=== PATIENT | male | born 1945 | race Caucasian/White ===

== ENCOUNTER 2022-01-31 13:30 | Outpatient (RCR) | payer MEDICARE, SELFPAY ==
--- NOTE | 2022-01-13 17:31 | PTOPEVAL1 ---
Assessment and note entered by Andres Reagan, PT Evaluation Information Assessment Status Evaluation Diagnosis Sciatica of the R and L LEs Onset 3 weeks ago Subjective Information Patient reports he has had sciatica before, but after a day or two with the MD giving him an anti inflammatory the symptoms would resolve on their own. He has been dealing with this for three weeks, requiring a large base quad cane as his legs have given out on him and he can barely walk. The patient is also having trouble sleeping on the L side and the sciatica is going to the arch on the L side and to the ankle on the R side. Reported Pain Level Pain Score 3: Self Report Assessment PT Clinical Summary Venkatesh is a 76 year old male coming into the clinic today with complaints of back pain with LIDA LE sciatica with the LLE worse. He is having trouble walking, sleeping, and being in prolonged position for extended periods. He has weakness in LIDA LE, tightness in hamstrings, calfs, pain, and trouble walking. Physical therapy should be able to help the patient increase strength in the legs and stretch out his lower extremities which should centralize his pain and improve his gait. Plan of Care Interventions Electrical Stimulation,Gait Training,Hot Pack/Cold Pack,Manual Therapy,Mechanical Traction,Neuro Re- education,Patient/Caregiver Education,Therapeutic Activities,Therapeutic Exercise,Ultrasound PT Services Indicated Yes Treatment Frequency and 2x/wk for 4 weeks Duration These treatments will address the objective and functional deficits as defined above. The patient will be advanced safely and appropriately in order for the patient to progress towards his/her prior level of function. Additional exercises will be introduced and as well as a comprehensive home exercise program upon discharge, if needed, ?to ensure carryover of functional gains achieved in the clinic. This treatment plan has been reviewed and agreement upon by the patient.
--- NOTE | 2022-02-07 10:12 | PCPTNOTE ---
Patient called & cancelled scheduled appointment this date due to running latre and unable to make the scheduled appointment.
--- NOTE | 2022-02-09 09:49 | PCPTNOTE ---
Patient called & cancelled scheduled appointment this date due to not feeling well
--- NOTE | 2022-04-05 15:59 | PCPTNOTE ---
Admitting Provider: Attending Provider: Christiano Enamorado MD Patient:Venkatesh Loja Date of :1945 Patient has not returned for any further treatments since 01/31/2022, therefore (he/she) will be discharged at this time. Patient?s initial visit was on 01/13/2022 15:00 and (he/she) had a total of ____3____ visits. The goals have been not met. Thank you for referring this patient to [facility]. Please review, sign, date and return this discharge summary WAYLON. I have been updated about the patient's current status and I agree with discharge from the above service at this time. Referring Physician Date
== END 2022-04-04 13:40 | disposition home or self-care (01) ==
LOC: ANHPT 13:30
PROVIDERS: PCP Nurse Practitioner Family; Visit Provider Family Medicine
DX: M54.42 Lumbago with sciatica, left side (principal); M54.41 Lumbago with sciatica, right side
CPT/HCPCS: 97014; 97110; 97161; G0283

== ENCOUNTER → 2022-02-23 11:27 | Outpatient (CLI) | payer MEDICARE, SELFPAY ==
--- NOTE | ~2022-02-23 | XR_ITS ---
Lumbosacral Spine: AP and lateral views Clinical History: Pain Findings: Mild grade 1 retrolisthesis is present of L1 over L2, of L2 over L3, and of L3 over L4. Ant erolisthesis of L4 over L5 is probably grade 2, measuring approximately 12 mm. There is advanced dege nerative disc narrowing at L2-L3. There is moderate degenerative disc narrowing at the remaining lumb ar intervertebral disc spaces. There are moderate facet joint degenerative changes at L4-L5 and L5-S1 : Mild facet joint degenerative changes at the upper lumbar spine. The sacroiliac joints are normally outlined. Impression: Probable grade 2 anterolisthesis of L4 on L5, measuring 12 mm. Mild grade 1 retrolisthesis of L1 over L2, of L2 over L3, and L3 over L4. Additional degenerative disc and facet joint changes, as detailed above. Reviewed, dictated and finalized at location [] MOBILE RENTAL CLERK Impression: Probable grade 2 anterolisthesis of L4 on L5, measuring 12 mm. Mild grade 1 retrolisthesis of L1 over L2, of L2 over L3, and L3 over L4. Additional degenerative disc and facet joint changes, as detailed above.
== END ==
PROVIDERS: PCP Family Medicine; Visit Provider Nurse Practitioner Family
DX: M54.41 Lumbago with sciatica, right side (principal); M54.42 Lumbago with sciatica, left side
CPT/HCPCS: 72100

== ENCOUNTER 2022-03-02 13:14 | Outpatient (CLI) | payer MEDICARE, SELFPAY ==
--- NOTE | ~2022-03-02 | MR_ITS ---
MRI of the lumbar spine Clinical History: Back pain, sciatica Technique: Axial T2-weighted images, and sagittal T1-weighted, T2-weighted, and T2 fat-sat images wer e acquired. Findings: No acute fracture seen. 7 mm retrolisthesis of L2 over L3 noted. 3 mm retrolisthesis of L3 over L4 noted. 10 mm anterolisthesis of L4 over L5 noted. 6 mm retrolisthesis of L5 over S1 noted. Th ere are reactive marrow signal changes throughout most the lumbar spine due to underlying degenerativ e disc disease. At L1-L2, there is severe degenerative disc narrowing, with disc bulge eccentric to left side. Facet joint degenerative changes are present, with left lateral recess stenosis. There is moderate left lori ral foraminal narrowing. Right neural foramen preserved. At L2-L3, there is severe degenerative disc narrowing. There is mild facet arthropathy with mild disc bulge, which contribute to mild to moderate thecal sac compression. There is moderate to severe bila teral neural foraminal narrowing. At L3-L4, disc bulge and facet arthropathy contribute to severe thecal sac compression. There is donna re bilateral neural foraminal narrowing, right worse than left. At L4-L5, disc bulge and facet arthropathy are present, contributing to focal severe thecal sac compr ession. There is severe bilateral neural foraminal narrowing. At L5-S1, disc bulge and facet arthropathy are present. There is no spinal canal stenosis. There is s evere bilateral neural foraminal narrowing, left worse than right. Paravertebral soft tissues are unremarkable. Impression: Severe degenerative spondylosis, as detailed above. Multiple subluxations are present, as detailed ab ove. There is severe thecal sac compression at L3-L4 and L4-L5, with moderate thecal sac compression L2-L3. There is multilevel severe neural foraminal narrowing, as detailed above. Reviewed, dictated and finalized at location M. NCIAL PLANNING ASSISTANT Impression: Severe degenerative spondylosis, as detailed above. Multiple subluxations are p resent, as detailed above. There is severe thecal sac compression at L3-L4 and L4-L5, with moderate thecal sac compression L2-L3. There is multilevel severe n eural foraminal narrowing, as detailed above.
== END 2022-03-02 13:15 ==
PROVIDERS: PCP Family Medicine; Visit Provider Nurse Practitioner Family
DX: M54.41 Lumbago with sciatica, right side (principal); M54.42 Lumbago with sciatica, left side; M51.36 Other intervertebral disc degeneration, lumbar region; M47.896 Other spondylosis, lumbar region
CPT/HCPCS: 72148

== ENCOUNTER → 2022-10-31 13:58 | Outpatient (CLI) | payer MEDICARE, SELFPAY ==
--- NOTE | ~2022-10-31 | XR_ITS ---
EXAMINATION: XR ribs LT 2V DATE: 10/31/2022 14:20 INDICATION: Pleurodynia TECHNIQUE: 4 views of the left ribs were obtained. COMPARISON: None FINDINGS: Minimally displaced fractures of the anterior left sixth and seventh ribs. Small calcified nodules in the lateral left midlung zone and calcified left hilar lymph nodes consistent with old granulomatous disease. No other airspace opacities, pulmonary edema, pleural effusion or pneumothorax. Heart size is normal. Median sternotomy wires and mediastinal surgical clips are seen, likely from prior coronar y artery bypass grafting. IMPRESSION: 1. Minimally displaced anterior left sixth and seventh rib fractures. No pneumothorax or other acute cardiopulmonary disease. Reviewed, dictated and finalized at location A. IMPRESSION: 1. Minimally displaced anterior left sixth and seventh rib fractures. No pneumo thorax or other acute cardiopulmonary disease.
== END ==
PROVIDERS: PCP Nurse Practitioner Family; Visit Provider Nurse Practitioner Family
DX: R07.81 Pleurodynia (principal); S22.42XA Multiple fractures of ribs, left side, initial encounter for closed fracture; X58.XXXA Exposure to other specified factors, initial encounter
CPT/HCPCS: 71100

== ENCOUNTER 2022-10-31 14:54 | Outpatient (CLI) | payer MEDICARE, SELFPAY ==
--- NOTE | ~2022-10-31 | XR_ITS ---
EXAMINATION: XR lumbar spine min 4V DATE: 10/31/2022 15:16 INDICATION: Low back pain TECHNIQUE: Anteroposterior and lateral views and neutral, flexion and extension of the lumbar spine w ere obtained. COMPARISON: Lumbar spine MR dated 03/02/2022 and radiographs dated 02/23/2022 FINDINGS: Mild upper lumbar dextrocurvature and mild mid to lower lumbar levocurvature. 6 mm retrolisthesis L2 on L3 as well as L3 on L4, 12 mm anterolisthesis L4 on L5 and 10 mm retrolisthesis L5 on S1, all with out significant change with flexion or extension. Vertebral body heights are normal. Severe disc heig ht loss at L2-L3. Moderate disc height loss at L1-L2, L5-S1 and with right-sided predominance at L3-L 4 and posterior predominance at L4-L5. Moderate bilateral sacroiliac osteoarthritis. Cholecystectomy clips in right upper quadrant. IMPRESSION: 1. Severe lumbar spondylosis. Reviewed, dictated and finalized at location A.
== END 2022-10-31 14:55 | disposition home or self-care (01) ==
LOC: ANHIMG 14:57
PROVIDERS: PCP Nurse Practitioner Family; Visit Provider Neurological Surgery
DX: M54.42 Lumbago with sciatica, left side (principal); M54.41 Lumbago with sciatica, right side; M47.26 Other spondylosis with radiculopathy, lumbar region
CPT/HCPCS: 71100; 72110

== ENCOUNTER 2022-11-17 11:41 | Outpatient (CLI) | payer MEDICARE, SELFPAY ==
--- NOTE | ~2022-11-17 | XR_ITS ---
AP and lateral views of the right hip Clinical history: Pain Findings: No acute fracture or dislocation is seen. Osseous alignment is anatomic. Right hip joint is preserved. Soft tissues are unremarkable. Impression: No significant abnormality is seen. Reviewed, dictated and finalized at location M. Impression: No significant abnormality is seen.
== END 2022-11-17 11:42 ==
PROVIDERS: PCP Neurological Surgery; Visit Provider Nurse Practitioner Family
DX: M25.551 Pain in right hip (principal)
CPT/HCPCS: 73502

== ENCOUNTER 2023-02-10 07:34 | Outpatient (CLI) | payer MEDICARE, SELFPAY ==
--- NOTE | ~2023-02-10 | MR_ITS ---
EXAMINATION: MR thoracic spine wo con DATE: 02/10/2023 08:39 INDICATION: Lumbar radiculopathy. TECHNIQUE: Magnetic resonance imaging (MRI) of the thoracic spine was performed without intravenous c ontrast. COMPARISON: Lumbar spine MRI 03/02/2022 FINDINGS: There is 5 degrees levocurvature of cervicothoracic spine. There is 3 degrees dextrocurvatu re of thoracic spine. There is 2 mm anterolisthesis of T2 on T3. There is mild chronic anterior wedgi ng of T11 and T12 vertebral bodies. There is severely decreased disc height at T2-T3, mildly decrease d disc height at T3-T4, moderately decreased disc height at T7-T8, mildly decreased disc height at T1 0-T11, and severely decreased disc height at T11-T12. There is multilevel facet joint osteoarthritis, severe at several levels. At T1-T2, there is a central protrusion with mild central canal stenosis. At T2-T3, there is a central extrusion with mild central canal stenosis. At T3-T4, there is a central extrusion with mild central canal stenosis and ventral indentation of the spinal cord. At T5-T6, the disc is bulging with mild central canal stenosis. At T6-T7, the disc is bulging with mild central ca nal stenosis. At T7-T8, there is a central extrusion with mild central canal stenosis and ventral ind entation of spinal cord. At T8-T9, there is a central protrusion with mild central canal stenosis. At T10-T11, the disc is bulging with mild central canal stenosis. At T11-T12, the disc is bulging with mild central canal stenosis. There is multilevel mild neural foraminal stenosis bilaterally. On the r ight, there is moderate neural foraminal stenosis at T2-T3, T8-T9, and T9-T10. On the left, there is moderate neural foraminal stenosis at T7-T8. The spinal cord signal intensity is normal. The conus me dullaris is at T12-L1. IMPRESSION: 1. Severe thoracic spondylosis. Reviewed, dictated and finalized at location A. RDS MANAGEMENT ASSOCIATE
== END 2023-02-10 07:35 | disposition home or self-care (01) ==
PROVIDERS: PCP Family Medicine; Visit Provider Nurse Practitioner Family
DX: M47.24 Other spondylosis with radiculopathy, thoracic region (principal)
CPT/HCPCS: 72146

== ENCOUNTER 2024-06-18 13:05 | Emergency (ER) | payer MEDICARE, SELFPAY ==
--- NOTE | 2024-06-18 13:08 | ED_ITS ---
HPI - Ear Problem General Chief complaint: Ear Stated complaint: Bilateral Ear Clogged Time Seen by Provider: 06/18/24 13:08 Source: patient Mode of arrival: ambulatory Limitations: no limitations History of Present Illness HPI Narrative: Patient is a 88-year-old male who presents with bilateral ears being clogged. Patient states he tried to clean out right ear with no relief. Patient states he can not hear out of his right ear and only has some hearing in left ear. Denies any congestion, cough, fever, chills, nausea, vomiting, diarrhea. MD Complaint: ear pain Related Data Home Medications ?Medication ?Instructions ?Recorded ?Confirmed ?Last Taken ?Type calcium 500 mg (as tablet PO 08/19/21 12/08/23 Unknown History carbonate)-vitamin D3 15 mcg (600 unit) tablet aspirin 81 mg tablet,delayed 81 mg PO DAILY 12/08/23 12/08/23 Unknown History release acetaminophen 325 mg tablet 325 mg PO QID PRN 06/07/24 Unknown History lisinopril 20 mg tablet 20 mg PO DAILY 06/07/24 Unknown History Allergies Allergy/AdvReac Type Severity Reaction Status Date / Time Penicillins Allergy Severe Swelling Verified 06/18/24 13:14 Review of Systems Review of Systems: All systems reviewed & are unremarkable except as noted in HPI and below Constitutional: Constitutional: Denies body ache(s), Denies chills, Denies fever(s), Denies headache(s) and Denies malaise Eyes: Eyes: Denies blurry vision, Denies eye discharge and Denies irritation ENT: Reports otalgia, Denies headache(s), Reports hearing loss, Denies nasal congestion, Denies nasal discharge and Denies sore throat Cardiovascular: Cardiovascular: Denies chest pain, Denies edema, Denies palpitations and Denies dyspnea on exertion Respiratory: Respiratory: Denies cough and Denies dyspnea on exertion Gastrointestinal: Gastrointestinal: Denies abdominal pain, Denies diarrhea, Denies nausea and Denies vomiting Musculoskeletal: Musculoskeletal: Denies back pain, Denies arthralgias and Denies muscle weakness Integumentary/Breasts: Skin/Breast: Denies pruritus and Denies rash Neurologic: Denies headache(s) Psychiatric: Psychiatric: Reports no additional psychiatric complaints Endocrine: Endocrine: Denies palpitations PMFSH Past Medical History Medical History Chronic thoracic spine pain MRI of the thoracic spine on 02/10/2023 reveals severe spondylosis. Lesion of skin of face Impacted cerumen, bilateral Hx of colonic polyp B12 deficiency Rib pain on left side Impacted cerumen of left ear Screening for diabetic retinopathy no diabetic retinopathy on 05/09/2022. Anterolisthesis of lumbar spine Degenerative disc disease, lumbar Retrolisthesis of vertebrae Low back pain with bilateral sciatica PSA elevation Anemia HLD (hyperlipidemia) Vitamin D deficiency Prostate cancer screening GERD (gastroesophageal reflux disease) Atrial fibrillation Gout Osteoarthritis of multiple joints Peripheral neuropathy Hypertension Diabetes type 2, controlled Encounter to establish care History of skin cancer Gallbladder disorder Diabetes CAD (coronary artery disease) Arthritis Surgical History Surgical History H/O heart bypass surgery Triple Bypass- 2014 H/O heart artery stent 2017, 2018 Hx of total knee replacement right knee- 2011 left knee-2011 Hx of cataract surgery Hx of cholecystectomy H/O knee surgery left knee-1999 H/O elbow surgery right elbow-1996 left elbow-2013 H/O hand surgery Bilateral 1997 H/O toe surgery 1987 Family History Family History Father Cancer Mother Heart disease Social History Social History Social History: Venkatesh is somewhat confident filling out medical forms. In the last 12 months he has received assistance from an organization or program with paying for medications, paying utility bills, and paying for food. Smoking status: Former smoker Alcohol intake: never Substance use: never Lack of Transportation: No Lack of Food: Never True Current Housing: I Have Housing Concerned About Future Housing: No Difficulty Paying Gas/Electric Bills: YES Difficulty Paying for Meds: No Currently Unemployed: No Education: Trade/Vocational Certificate Difficulty w/ Childcare or Family Care: No Living arrangements: alone Gender identity (if verbalized by the patient): Male Comments At time of signature, agree with nursing past medical, surgical, social and family history. There is no relevant family history pertinent to the presenting complaint? Exam Const: General: cooperative, healthy appearing, no acute distress and well nourished Nutritional Appearance: well nourished Orientation/consciousness: patient oriented x3 Limitations: no limitations HENMT: Head: normal to inspection, normocephalic and atraumatic Ears: hearing grossly normal bilaterally, EAC's normal, no periauricular adenopathy and TM abnormal obstructed by cerumen bilateral Face/Nose/Sinus: Normal external nose present, Normal nares present, Normal nasal mucous membranes and turbinates present, No nasal discharge present, normal facial exam and sinuses nontender Face and sinus: normal facial exam and sinuses nontender Mouth: Yes Normal oral and palatal mucosa present, Yes lip normal, Yes tongue normal and Yes moist mucous membranes Throat: posterior oropharynx normal, tonsils normal and uvula midline Eyes: General: appearance normal, both eyes and all related structures Alignment and Position: alignment normal and position normal Eyelids: eyelids normal Pupils: Equal, round and reactive pupils present EOM: EOMs intact bilaterally Neck: Neck: normal visual inspection, full ROM, no lymphadenopathy and supple Chest: Chest palpation & inspection: normal inspection of the chest Resp: Effort & Inspection: normal respiratory effort and able to speak in complete sentences Auscultation: clear to auscultation bilaterally, no crackles, no rales, no rhonchi and no wheezes Cardio: Rate: regular rate Rhythm: regular rhythm Heart sounds: S1 normal heart sound present and S2 normal heart sound present Skin: General skin exam: normal color and no rashes or lesions noted Neuro: General: patient oriented x3 and moves all extremities Cranial nerves: Yes Equal, round and reactive pupils present Cognition (Neuro): normal cognition Speech: normal speech Gait exam (Neuro): Normal gait present Extrem: General: normal to inspection and full ROM Psych: Appearance: grossly normal and well kempt Mental Status: mental status grossly normal Speech and movement: Normal speech and movement present Course Course Emergency Course: Patient is aware of diagnosis, understands and agrees to treatment plan.? Anticipatory guidance given.? Patient agrees to follow-up as directed and is aware of reasons to seek care at the emergency department.? Portions of this record may have been created with voice recognition software? Level of Care: Express Care Visit Vital Signs Vital signs: Reviewed Procedures Ear Wax Removal Both Ears: Ear Wax Removal Date: 06/18/24 Ear Wax Removal Time: 13:40 Cerumenolytic Used: other (1:1 water and hydrogen peroxide mix) Results: Re-examined: cerumen removed completely TM Examination: TM(s) intact, normal appearance Ear Canal Exam: atraumatic Patient Tolerated Procedure: well and no complications Complications: no problems Technique: ear canal irrigated Additional Comments: Procedure explained patient, verbal consent obtained. Large amounts of wax removed. Patient reports relief of symptoms and ability to hear is back to baseline. Wears hearing aids Medical Decision Making MDM Narrative Medical decision making narrative: Six possible remover of cerumen. Patient still reports some difficulty hearing but does state that is his baseline as he wears hearing aids and does not have them with him. No signs of infection present Pt well hydrated appearing, in no respiratory distress, hemodynamically stable. Recommend supportive care. The patient is stable at time of discharge the clinical impression was discussed and the patient was given the opportunity to ask questions, which were addressed as completely as possible given the information available at present. Anticipatory guidance and return to care precautions were discussed and the importance of primary care follow-up was stressed and encouraged. The patient voiced understanding of the plan, indications to return, and the need for follow-up. Exam findings show no acute concerns or changes Patient is appropriate for outpatient treatment and follow-up. Differential diagnosis considered: Rodrigez virus, strep pharyngitis, allergic rhinitis, upper respiratory tract infection, sinusitis, rhinosinusitis, nasopharyngitis. viral pharyngitis, otitis media, otitis externa, otitis effusion, foreign body, cerumen impaction, viral syndrome, and influenza.? Medical Records Medical records reviewed: Yes I reviewed the external patient's medical records. Discharge Plan Discharge Clinical Impression: Cerumen impaction Qualifiers: Laterality: bilateral Qualified Code(s): H61.23 - Impacted cerumen, bilateral Patient Disposition: Home Condition: Stable Instructions: Carbamide Peroxide (Into the ear) Additional Instructions: Use Flonase daily. Pick between Zyrtec and Claritin [id number] -Ear drops as needed -When administer drug into the affected ear; make sure to lay down with the affected ear facing upward, message the ear canal to help the drops reach the medial end of the canal, then remain in that position for at least 5 minutes. -Avoid using cotton tipped applicator for ears cleaning -Avoid exposing swimming or exposing the affected ear to water during the treatment period Take or alternate tylenol or ibuprofen every 4 - 6 hours if needed for pain. Follow up with primary care provider if condition is not improving in 7 days or sooner if there is new concern. Patient Language: Mexican Prescriptions: New fluticasone propionate [Flonase Allergy Relief] 50 mcg/actuation spray,suspension 1 spray intranasal DAILY Qty: 16 0RF Rx Instructions: administer into each nostril No Action calcium carbonate-vitamin D3 500 mg-15 mcg (600 unit) tablet PO aspirin 81 mg tablet,delayed release (DR/EC) 81 mg PO DAILY acetaminophen 325 mg tablet 325 mg PO QID PRN (DME) Dexcom G7 Sensor Device See Rx Instructions .Route Qty: 9 3RF Rx Instructions: Change every 10 days nitroglycerin 0.4 mg tablet, sublingual 0.4 mg sublingual Q5M PRN (Reason: chest pain) Qty: 30 1RF Rx Instructions: do not exceed 3 doses per episode lisinopril 20 mg tablet 20 mg PO DAILY metoprolol tartrate 25 mg tablet 25 mg PO BID Qty: 180 3RF rosuvastatin 20 mg tablet 20 mg PO DAILY Qty: 90 3RF diltiazem HCl 30 mg tablet 30 mg PO BID Qty: 180 3RF amiodarone 200 mg tablet 200 mg PO 3XW Qty: 36 3RF Eliquis 5 mg tablet 5 mg PO BID Qty: 180 3RF fenofibric acid (choline) 135 mg capsule,delayed release(DR/EC) 135 mg PO DAILY Qty: 90 3RF pantoprazole 40 mg tablet,delayed release (DR/EC) 40 mg PO QAM Qty: 90 3RF (DME) Dexcom G7 Fire Information Officer Misc See Rx Instructions .Route Qty: 1 0RF Rx Instructions: As directed isosorbide mononitrate 30 mg tablet extended release 24 hr 30 mg PO BID Qty: 180 3RF glipizide 5 mg tablet 5 mg PO BID Qty: 180 3RF allopurinol 300 mg tablet See Rx Instructions .ROUTE .COMPLEX Qty: 100 2RF Dose Instruction: TAKE 1 TABLET BY MOUTH DAILY Rx Instructions: TAKE 1 TABLET BY MOUTH DAILY (DME) Accu-Chek Daisy Plus test strp Strip See Rx Instructions .ROUTE .COMPLEX Qty: 100 2RF Dose Instruction: TEST ONCE DAILY Rx Instructions: TEST ONCE DAILY Follow-up/Referrals: Mikey Brumfield APRN [Primary Care Provider] - 3 Days Time of Disposition: 13:53
[2024-06-18 13:12] VITALS: BP 165/60; PULSE 63; RESP 20; TEMP 35.8; O2SAT 100
[2024-06-18] MEDS: HYDROGEN PEROXIDE 3% SOLN(*SP) 473 ML BOTTLE 120 ML IRRIGATION (13:27)
--- OUTSIDE RECORDS SUMMARY | 2024-06-18 14:27 | XMS_ITS | Clinical Summary ---
Author Organization [facility] Address [address] [place] [address] Care Team Providers Care Epic Radiant Analyst Name Role Phone Malick Mcgregor MD Unavailable Christiano Enamorado MD Primary Care Provider [phone] Allergies Active Allergy Reactions Criticality Noted Date Comments Niacin Hallucinations,Flush ing (skin) Medium 12/05/2007 Penicillins Hives,Rash Medium 06/28/2017 Reaction: HIVES, Reaction: Hives, , Pravastatin Muscle pain Medium 10/17/2008 Simvastatin Muscle pain Medium 08/31/2006 Medications glipiZIDE (GLUCOTROL) 5 mg tabletIndicati ons:type 2 diabetes mellitus Take 1 tablet (5 mg total) by mouth 2 (two) times a day before breakfast and dinner Active isosorbide mononitrate ER (IMDUR) 30 mg 24 hr tablet Take 1 tablet (30 mg total) by mouth 2 (two) times a day 09/01/[address] (PROTONIX) 40 mg EC tablet Take 1 tablet (40 mg total) by mouth daily 09/01/19 18 Active allopurinol (ZYLOPRIM) 300 mg tablet Take 1 tablet (300 mg total) by mouth daily Active calcium carbonate-vit D3-min 600 mg calcium- 200 unit tablet Take 1 tablet by mouth 2 (two) times a day. Active FENOFIBRIC ACID ORAL Take 135 mg by mouth daily. Active gabapentin (NEURONTIN) 600 mg tablet Take 1 tablet (600 mg total) by mouth every 6 (six) hours 6-12-18-24 Active metFORMIN (GLUCOPHAGE) 1,000 mg tablet Take 1 tablet (1,000 mg total) by mouth 2 (two) times a day With dinner and at bedtime. Resume metformin after 2 days on 09/03/18 09/04/19 Active Additional Information Patient taking differently:1,000 mg oralDaily with breakfast, (No instructions reported), Reported on 05/07/2024 aspirin 81 mg enteric coated tablet Take 1 tablet (81 mg total) by mouth daily Active rosuvastatin (CRESTOR) 20 mg tablet Take 1 tablet (20 mg total) by mouth daily 100 tablet 2 04/19/19 25 Active metoprolol tartrate (LOPRESSOR) 25 mg immediate release tablet Take 1 tablet (25 mg total) by mouth 2 (two) times a day 200 tablet 2 04/19/19 Active Eliquis 5 mg tablet Take 1 tablet (5 mg total) by mouth 2 (two) times a day 200 tablet 2 04/19/19 25 Active dilTIAZem (CARDIZEM) 30 mg tablet Take 1 tablet (30 mg total) by mouth 3 (three) times a day 300 tablet 2 04/19/19 Active nitroglycerin (NITROSTAT) 0.[address] 1 tablet (0.4 mg total) under the tongue every 5 (five) minutes as needed for chest pain 90 tablet 3 04/19/19 25 026 Active amiodarone (PACERONE) 200 mg tablet Take 1 tablet (200 mg total) by mouth daily Pt only takes medication on //, please send one year supply 100 tablet 05/01/19 Active clindamycin (CLEOCIN) 300 mg capsule TAKE 2 CAPSULES BY MOUTH 2 HOURS BEFORE APPT AND 2 CAPSULES BY MOUTH DAY AFTER APPT 04/25/19 Active lisinopriL (PRINIVIL,ZEST RIL) 20 mg tablet Take 1 tablet (20 mg total) by mouth daily 90 tablet 3 06/05/19 25 026 Active lisinopriL (PRINIVIL,ZEST RIL) 10 mg tablet Take 1 tablet (10 mg total) by mouth daily 100 tablet 2 04/19/19 25 025 Discontinued lisinopriL (PRINIVIL,ZEST RIL) 10 mg tablet Take 2 tablets (20 mg total) by mouth daily 06/04/19 025 Discontinued Active Problems Problem Noted Date Diagnosed Date Anxiety state 05/07/2024 Disorder of nervous system due to type 2 diabete s mellitus 05/07/2024 Mononeuritis 05/07/2024 Obesity 05/07/2024 Other psoriasis 05/07/2024 Peripheral vascular disease 05/07/2024 Pure hypertriglyceridemia 05/07/2024 Sprain of foot 05/07/2024 Primary hypertension 05/07/2024 Other thrombophilia 12/08/2022 Paroxysmal atrial fibrillation 09/29/2021 Assessment & Plan (12/08/2022 11:49 AM CDT): Stable, maintaining sinus rhythm on low-dose amiodarone, and he remains on Eliquis. Continue same therapy. Assessment & Plan (11/30/2021 11:51 AM CDT): Stable, maintaining sinus rhythm on low-dose amiodarone, and he remains on Eliquis. Continue same therapy. Nonrheumatic aortic valve stenosis 09/29/2021 Assessment & Plan (12/08/2022 11:49 AM CDT): Stable, minimal aortic stenosis only, asymptomatic. Continue same therapy. Assessment & Plan (11/30/2021 11:50 AM CDT): Stable, minimal aortic stenosis, asymptomatic. Continue same therapy. Hypercholesteremia 09/29/2021 Assessment & Plan (12/08/2022 11:49 AM CDT): Very well controlled. Continue high-intensity statin therapy. Assessment & Plan (11/30/2021 11:53 AM CDT): Lipids are well controlled. Continue high-intensity statin therapy. 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 I made no change in his excellent medical regimen today. I asked him to follow up with me annually, or sooner if needed. I again advised him to diet and exercise regularly. Assessment & Plan (11/30/2021 11:55 AM CDT): Stable, without recent angina. I made no change in his excellent medical regimen today, except to stop Plavix now far out from his PCI, and I stopped digoxin as well. He remains on low-dose aspirin plus Eliquis. I asked him to follow up with me annually, or sooner if needed. I again advised him to diet and exercise regularly. Diabetes mellitus type 2 in obese 04/10/2018 Essential hypertension 04/10/2018 Assessment & Plan (12/08/2022 11:49 AM CDT): Well controlled. Continue same therapy. Continue diet and exercise. Assessment & Plan (11/30/2021 11:52 AM CDT): Blood pressure is well controlled. Continue same therapy. Continue diet and exercise. S/P CABG (coronary artery bypass graft) 09/20/19 Overview (09/19/2017): Added automatically from request for surgery [id number] Encounter for postoperative care 11/03/2014 Overview (06/17/2016): Post surgical visit Bladder pain 05/27/2014 Resolved Problems Problem Noted Date Diagnosed Date Resolved Date Chest pain 01/06/2020 12/07/2022 Overview (01/06/2020): Added automatically from request for surgery [id number] Chest pain due to myocardial ischemia 08/31/2018 12/07/2022 Unstable angina pectoris ([facility]/HCC) 08/28/2018 09/29/2021 Overview (08/28/2018): Added automatically from request for surgery [id number] Acute chest pain 04/10/2018 09/29/2021 Acute coronary syndrome ([facility]) 04/10/2018 09/29/2021 Overview (04/10/2018): Added automatically from request for surgery [id number] Coronary artery disease invo lving pilot point coronary artery of pilot point heart without angina pectoris 10/09/2017 09/29/2021 Overview (10/09/2017): Added automatically from request for surgery [id number] Angina pectoris, unstable ([facility]) 09/19/2017 09/29/2021 Overview (09/19/2017): Added automatically from request for surgery [id number] Coronary artery disease invo lving coronary bypass graft of pilot point heart with unstable angina pectoris ([facility]) 09/19/2017 09/29/2021 Overview (09/19/2017): Added automatically from request for surgery [id number] Encounters Date Type Department Care Team Description 06/11/2024 Telephone [facility] Cardiology [address] [place] [address] [address] [place] [address] Ellie Wesley MD Cath Rescheduling 06/04/2024 Telephone [facility] Cardiology [address] [place] [address] [address] [place] [address] Ellie Wesley MD [facility] Scheduling 06/04/2024 Results Follow-Up [facility]iology [address] [place] [address] [address] [place] [address] Ellie Wesley MD 05/27/2024 1:30 PM CDT Ancillary Procedure [facility] Cardiology [facility] [facility] [address] [place] [address] 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 ([facility]) ([facility]) 05/27/2024 Telephone [facility] Cardiology [address] [facility] [address] [place] [address] Ellie Wesley MD 05/07/2024 10:30 AM TECHNICAL SUPPORT SPECIALIST Office Visit [facility] Cardiology [address] [facility] [address] [place] [address] Ellie Wesley MD 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 (CMS/HCC) (HCC) (Primary Dx); Hypercholesteremia; Paroxysmal atrial fibrillation (HCC) from Last 3 Months Immunizations Immunization Administration Dates Next Due Influenza, Quadrivalent, Hig h Dose, Preservative Free, Intrr 01/30/2020 Influenza, Unspecified 02/10/2009,2007,01/01/2007,2005 Pneumococcal, Unspecified 03/13/2006 Td, Unspecified 02/13/2006 Tdap 08/29/2021 Surgical History Surgery Date Site/Laterality Comments CHOLECYSTECTOMY Cholecystectomy CORONARY ARTERY BYPASS GRAFT 03/13/2014 - 03/12/2015 cabg x 3 CARDIAC CATHETERIZATION CARPAL TUNNEL RELEASE Bilateral carpal tunnel release - bilateral TOTAL KNEE ARTHROPLASTY Right TOTAL KNEE ARTHROPLASTY Left TRIGGER FINGER RELEASE Left 5th finger CATARACT EXTRACTION W/ INTRAOCULAR LENS IMPLANT Bilateral ELBOW SURGERY Bilateral nerve surgery TOE SURGERY Right rightr great toe surgery for bone chip BIOPSY / EXCISION / DISSECTION AXILLARY NODE 03/13/1975 - 03/12/1976 Right benign MASS EXCISION 03/13/2017 - 03/12/2018 Left cancerous lump removed from under left ring fingernail KNEE ARTHROSCOPY Left CARDIAC CATHETERIZATION 10/11/2017 - 11/10/2017 With TACHO to the RUIZ graft to the LAD CORONARY STENT PLACEMENT 10/2017 MULTIPLE TOOTH EXTRACTIONS CORONARY ANGIOPLASTY Medical History Medical History Date Comments Type 2 diabetes mellitus (HCC) D iabetes type 2; Comments: AMB 11/03/2014 - Arrhythmia Neuropathy peripheral neuro gricel Hypertension controlled Hyperlipidemia hyperlipidemia; Comments: AMB 11/03/2014 - Coronary artery disease Coronary artery disease Cancer (HCC) cancerous lump u nder left ring fingernail Family History Medical History Relation Name Comments Diabetes type II Brother Heart attack Brother Cancer Father Heart disease Mother Heart failure Mother Relation Name Status Comments Brother Father Mother Sister Alive Social History Tobacco Use Types Packs/Day Years Used Date Smoking Tobacco: Former Smokeless Tobacco: Never Tobacco Cessation:Counseling Given: Not Answered Comments:smoked only during service quit 1965 Alcohol Use Standard Drinks/Week Comments No 0 (1 standard drink = 0.6 oz pur e alcohol) Sex and Gender Information Value Date Recorded Sex Assigned at Not on file Legal Sex Male 11:39 PM TECHNICAL SUPPORT SPECIALIST Gender Identity Not on file Sexual Orientation Not on file Obstetrics History Last Filed Vital Signs Vital Sign Reading Time Taken Comments Blood Pressure 158/80 05/07/2024 11:27 AM TECHNICAL SUPPORT SPECIALIST Pulse 86 05/07/2024 11:27 AM TECHNICAL SUPPORT SPECIALIST Temperature 36.8 C (98.3 F) 08/29/2021 1:45 PM CDT Respiratory Rate 20 08/29/2021 1:45 PM CDT Oxygen Saturation 98% 05/07/2024 11:27 AM TECHNICAL SUPPORT SPECIALIST Inhaled Oxygen Concentration - - Weight 102 kg (224 lb 12.8 oz) 05/07/2024 11:27 AM TECHNICAL SUPPORT SPECIALIST Height 188 cm (6' 2 ) 05/07/2024 11:27 AM TECHNICAL SUPPORT SPECIALIST Body Mass Index 28.86 05/07/2024 11:27 AM TECHNICAL SUPPORT SPECIALIST Plan of Treatment Upcoming Encounters Date Type Department Care Team (Latest Contact Info) Description 07/04/2024 10:20 AM CDT Hospital Encounter [facility] [address] [phone] Ellie Wesley MD [address] [id number] Nonrheumatic aortic valve stenosis 07/04/2024 10:20 AM CDT - 07/04/2024 11:55 AM CDT Surgery [address] [phone] Ellie Wesley MD [address] [address] RIGHT LEFT HEART CATHETERIZATION WITH CORONARY ANGIOGRAPHY GRAFT AND WITH OR WITHOUT LEFT VENTRICULOGRAPHY [address] Health Maintenance Due Date Last Done Comments Albumin Creatinine Ratio, Urine 1945 Depression Screening 1945 Fall Risk Assessment 1945 Dilated Eye Exam 1945 Foot Exam 1945 Hepatitis B Screening 09/08/1961 Pneumococcal vaccine 65+ (1 of 2 - PCV) 09/08/1962 03/13/2006 Zoster Vaccine (1 of 2) 09/08/1993 Abdominal Aortic Aneurysm (A AA) Screen 09/08/2008 Well Visit 65+ 09/08/2008 Hemoglobin A1C 10/09/2018 04/11/2018 Covid-19 Vaccine (2 - 4-2 5 season) 2023 05/21/2020 Influenza Vaccine (Season Ended) 2024 01/30/2020, 02/10/2009, 01/17/2008, Additional history exists Lipid Panel 05/07/2025 05/07/2024, 12/13, 08/30/2018, Additional history exists eGFR 06/10/2025 06/10/2024, 12/13, 09/01/2018, Additional history exists DTaP/Tdap/Td Vaccine (2 - Td or Tdap) 08/30/2031 08/29/2021, 02/13/2006 Medical Devices Implanted Type Area Dust Control Engineer Device Identifier Shelf Expiration Date Model / Serial / Lot [employer] [id number] Synergy 3.5mm 38mm 144cm Radiopaque 1 Access Port Inflation Lumen - [id number] Implanted:Qty: 1 on 08/31/2018 by Maurice Olivares MD at [facility] Stent N/A: Coronary [employer] 06/24/2020 [id number] / / [id number] [employer] [id number] Synergy 3mm 38mm 144cm Radiopaque 1 Access Port Inflation Lumen - [id number] Implanted:Qty: 1 on 08/31/2018 by Maurice Olivares MD at [facility] Stent N/A: Coronary [employer]vin 06/04/2020 [id number] / / [id number] Description:TACHO to RCA [employer] [id number] Synergy 4mm 38mm 144cm Radiopaque 1 Access Port Inflation Lumen - [id number] Implanted:Qty: 1 on 08/31/2018 by Maurice Olivares MD at [facility] Stent N/A: Coronary [employer] Elvin 06/18/2020 [id number] / / [id number] Description:TACHO to RCA [employer] X [id number] Resolute [place] 3.5mm 2.1-2.7fr 18mm 140cm Rapid Exchange - [id number] Implanted:Qty: 1 on 10/06/2017 by Malick Mcgregor MD at [facility] [employer] X 05/13/2019 [id number] / / [id number] [employer] X [id number] Resolute Basil 2.25mm 2.1-2.7fr 12mm 140cm Rapid Exchange - [id number] Implanted:Qty: 1 on 10/30/2017 by Malick Mcgregor MD at [facility] [employer] X 12/10/2018 [id number] / / [id number] [employer] [id number] Synergy 4mm 20mm 144cm Radiopaque 1 Access Port Inflation Lumen - [id number] Implanted:Qty: 1 on 04/11/2018 by Malick Mcgregor MD at [facility] N/A: Coronary [employer]vin [id number] 10/25/2019 [id number] / / [id number] Description:SVG toRCA Procedures Procedure Name Priority Date/Time Associated Diagnosis Comments CBC WITH AUTO DIFFERENTIAL Routine 06/10/2024 12:00 PM CDT Nonrheumatic aortic valve stenosis BASIC METABOLIC PANEL Routine 06/10/2024 12:00 PM CDT Nonrheumatic aortic valve stenosis TRANSTHORACIC ECHO (TTE) COMPLETE W DOPPLER/CF WO CONTRAST Routine 05/27/2024 2:14 PM CDT 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 (CMS/HCC) (HCC) POCT LIPID PANEL Routine 05/07/2024 11:5 8 AM TECHNICAL SUPPORT SPECIALIST Hypercholesteremia HEMOGLOBIN A1C Routine 04/11/2018 5:27 AM TECHNICAL SUPPORT SPECIALIST from Last 3 Months or Most Recently Relevant to Health Maintenance Results * (ABNORMAL) CBC with auto differential (06/10/2024 12:00 PM CDT) [facility] WBC 5.6 3.4 - 10.8 x10E3/uL [facility] - 01 RBC 4.15 4.14 - 5.80 x10E6/uL [facility] - 01 Hgb 12.5(L) 13.0 - 17.7 g/dL [facility] - 01 Hct 38.9 37.5 - 51.0 % [facility] - 01 MCV 94 79 - 97 fL [facility] - 01 MCH 30.1 26.6 - 33.0 pg [facility] - 01 MCHC 32.1 31.5 - 35.7 g/dL [facility] - 01 Rdw 13.3 11.6 - 15.4 % [facility] - 01 Platelets 175 150 - 450 x10E3/uL [facility] - 01 Neutrophils pct 53 Not Estab. % [facility] - 01 Lymphs pct 34 Not Estab. % [facility] - 01 Monocytes pct 8 Not Estab. % [facility] - 01 Eosinophils pct 4 Not Estab. % [facility] - 01 Basophil pct 1 Not Estab. % [facility] - 01 Neutrophil abs 3.0 1.4 - 7.0 x10E3/uL [facility] - 01 Lymphs (Absolute) 1.9 0.7 - 3.1 x10E3/uL [facility] - 01 Monocyte abs 0.5 0.1 - 0.9 x10E3/uL [facility] - 01 Eosinophils, abs 0.2 0.0 - 0.4 x10E3/uL [facility] - 01 Basophils, abs 0.1 0.0 - 0.2 x10E3/uL [facility] - 01 Immature Granulocytes 0 Not Estab. % [facility] - 01 Immature Grans (Abs) 0.0 0.0 - 0.1 x10E3/uL [facility] - 01 Blood 06/10/2024 12:0 0 PM CDT 06/10/2024 Narrative [facility] - 06/11/2024 7:09 AM CDT Performed at: 01 - [facility] [id number] Business Information Manager: Harjeet Leung PhD, Phone: [phone] Ellie Wesley MD LAB BLOOD ORDERABLES Fin al Result Performing Organization Address [facility] Co de Phone Number [facility] - 01 * (ABNORMAL) Basic metabolic panel (06/10/2024 12:00 PM CDT) Glucose 140(H) 70 - 99 mg/dL [facility] - 01 BUN 27 8 - 27 mg/dL [facility] - 01 Creatinine, Serum 1.53(H) 0.76 - 1.27 mg/dL [facility] - 01 eGFR 46(L) >59 mL/min/1.7 3 [facility] - 01 BUN/creat ratio 18 10 - 24 [facility] - 01 Sodium 141 134 - 144 mmol/L [facility] - 01 Potassium, sr 4.4 3.5 - 5.2 mmol/L [facility] - 01 Chloride 106 96 - 106 mmol/L [facility] - 01 CO2 22 20 - 29 mmol/L [facility] - 01 Calcium 9.6 8.6 - 10.2 mg/dL [facility] - 01 Blood 06/10/2024 12:0 0 PM CDT 06/10/2024 Narrative [facility] - 06/11/2024 7:09 AM CDT Performed at: [address] [place], [place] [id number] Business Information Manager: Harjeet Leung PhD, Phone: [phone] Ellie Wesley MD LAB BLOOD ORDERABLES Fin al Result Performing Organization Address [facility] Co de Phone Number [facility] - * TRANSTHORACIC ECHO (TTE) COMPLETE W DOPPLER/CF WO CONTRAST (05/27/2024 2:14 PM CDT) Pathologist [facility] LV EF 70-75 % CONS SCIMAGE Anatomical Region Laterality Modality Ultrasound 05/27/2024 1:47 PM CDT Narrative 05/28/2024 7:50 PM CDT ECHOCARDIOGRAM Patient Name: VENKATESH KAHN : 1945 Study Date: 05/27/2024 1:47:20 PM Gender: M Tech: [facility] Location: [facility] Ref Provider: ELLIE WESLEY Height(Cm): 188 BSA: 2.33 Weight(Kg): 104.33 BP: 131 / 65 Order Provider: ELLIE WESLEY - PROCEDURES: Echocardiographic Report: Transthoracic Echocardiogram with complete 2D, M-Mode, Spectral and Color Flow Doppler examination. INDICATIONS: I25.118 Atherosclerotic heart disease of pilot point coronary artery with other forms of angina pectoris. MEASUREMENTS: 2D/MM Value Range Doppler Value Range IVSd 2D 0.80 cm [ 0.60 - 1.00 ] AV Peak Eric 4.0 m/s [ 1.0 - 1.7 ] LVIDd 2D 4.03 cm [ 4.20 - 5.80 ] AV Peak PG 64 mmHg LVIDs 2D 2.65 cm [ 2.50 - 4.00 ] AV Mean PG 42 mmHg LVPWd 2D 1.19 cm [ 0.60 - 1.00 ] AV VTI 99.3 cm EF Mod BP 72 % [ 52 - 72 ] KJ VTI 0.7 cm2 Estimated EF 70-75 % LVOT Peak Eric 1.05 m/s [ 0.70 - 1.10 ] LA Dimension 2D 4.25 cm [ 3.00 - 4.00 ] LVOT Diam 2.0 cm LA Dimension MM 4.24 cm [ 3.00 - 4.00 ] LVOT Peak PG 4 mmHg AoR Diam MM 3.45 cm [ 3.10 - 3.70 ] LVOT VTI 24.5 cm TAPSE 1.51 cm [ 1.71 - 5.00 ] MV Mean PG 3 mmHg MV E Peak Eric 0.9 m/s [ 0.6 - 1.3 ] MV A Peak Eric 1.3 m/s [ 1.0 - 1.2 ] MV Decel Time 286.2 ms [ 104.0 - 258.0 ] MV E/A Ratio 0.7 TR Peak Eric 2.3 m/s [ 1.0 - 2.8 ] TR Peak PG 21 mmHg RVSP 23.7 mmHg [ 10.0 - 36.0 ] RA Pressure 3.0 mmHg PV Peak Eric 1.0 m/s [ 0.4 - 0.8 ] PV Peak PG 4 mmHg Lat E` Eric 0.09 m/s [ 0.10 - 0.15 ] E/E` 10.00 2D/MM Value Range Doppler Value Range - FINDINGS: Study Quality: The study was technically adequate. BP: Blood pressure: 131/65 mmHg. Left Ventricle: Normal global and regional left ventricular systolic function. Ejection Fraction is measured at (Simpsons) 72 %. Ejection Fraction is estimated to be 70-75 %. Diastolic indices overall most consistent with Grade I diastolic dysfunction (impaired myocardial relaxation without elevated filling pressures). Normal left ventricular cavity size. LV wall thickness is within normal limits. Right Ventricle: Normal right ventricular systolic function. Low normal right ventricular systolic function. Normal right ventricular size. Left Atrium: There is mild enlargement of the left atrium. Right Atrium: The right atrium is normal in size. Atrial Septum: Normal appearing atrial septum. Mitral Valve: Normal appearance of the mitral valve leaflets. Mitral stenosis is absent. There is no mitral regurgitation. Mild mitral annular calcification. Aortic Valve: Aortic valve appears tricuspid in configuration. Aortic cusps appear moderately calcified. There is severely reduced aortic valve cusp separation. Severe aortic stenosis. 0.7 cm2 by continuity equation. There is no aortic regurgitation. Tricuspid Valve: Normal appearance of the tricuspid leaflets. Trace tricuspid regurgitation. Normal right ventricular systolic pressure. Pulmonic Valve: Normal appearance and function of the pulmonic valve. There is no pulmonic stenosis. There is no pulmonic regurgitation. Pericardium: There is an anterior echo free space consistent with epicardial fat pad. No significant pericardial effusion. Pleural Effusion: There is no apparent pleural effusion. Aortic Root and Aorta: Normal caliber aortic root. Aortic Arch: The aortic arch is poorly visualized. IVC: Normal appearance of the inferior vena cava. CONCLUSIONS: 1. Normal global and regional left ventricular systolic function. Ejection Fraction is measured at (Simpsons) 72 %. Ejection Fraction is estimated to be 70-75 %. Diastolic indices overall most consistent with Grade I diastolic dysfunction (impaired myocardial relaxation without elevated filling pressures). Normal left ventricular cavity size. LV wall thickness is within normal limits. 2. Normal right ventricular systolic function. Low normal right ventricular systolic function. Normal right ventricular size. 3. There is mild enlargement of the left atrium. 4. Aortic valve appears tricuspid in configuration. Aortic cusps appear moderately calcified. There is severely reduced aortic valve cusp separation. Severe aortic stenosis. 0.7 cm2 by continuity equation. There is no aortic regurgitation. Electronically Signed By: Kem Chapa MD [facility] 05/28/2024 7:49:59 PM CDT Procedure Note Kem Chapa MD - 05/28/2024 ECHOCARDIOGRAM Patient Name: VENKATESH KAHN : 1945 Study Date: 05/27/2024 1:47:20 PM Gender: M Tech: [facility] Location: [facility] Ref Provider: ELLIE WESLEY Height(Cm): 188 BSA: 2.33 Weight(Kg): 104.33 BP: 131 / 65 Order Provider: ELLIE WESLEY - PROCEDURES: Echocardiographic Report: Transthoracic Echocardiogram with complete 2D, M-Mode, Spectral and ColorFlow Doppler examination. INDICATIONS: I25.118 Atherosclerotic heart disease of pilot point coronary artery with otherforms of angina pectoris. MEASUREMENTS: 2D/MM Value Range Doppler ValueRange IVSd 2D 0.80 cm [ 0.60 - 1.00 ] AV Peak Eric 4.0 m/s[ 1.0 - 1.7 ] LVIDd 2D 4.03 cm [ 4.20 - 5.80 ] AV Peak PG 64mmHg LVIDs 2D 2.65 cm [ 2.50 - 4.00 ] AV Mean PG 42mmHg LVPWd 2D 1.19 cm [ 0.60 - 1.00 ] AV VTI 99.3cm EF Mod BP 72 % [ 52 - 72 ] KJ VTI 0.7cm2 Estimated EF 70-75 % LVOT Peak Eric 1.05 m/s[ 0.70 - 1.10 ] LA Dimension 2D 4.25 cm [ 3.00 - 4.00 ] LVOT Diam 2.0 cm LA Dimension MM 4.24 cm [ 3.00 - 4.00 ] LVOT Peak PG 4 mmHg AoR Diam MM 3.45 cm [ 3.10 - 3.70 ] LVOT VTI 24.5cm TAPSE 1.51 cm [ 1.71 - 5.00 ] MV Mean PG 3 mmHg MV E Peak Eric 0.9 m/s [ 0.6 - 1.3 ] MV A Peak Eric 1.3 m/s [ 1.0 - 1.2 ] MV Decel Time 286.2 ms [ 104.0 - 258.0 ] MV E/A Ratio 0.7 TR Peak Eric 2.3 m/s [ 1.0 - 2.8 ] TR Peak PG 21 mmHg RVSP 23.7 mmHg [ 10.0 - 36.0 ] RA Pressure 3.0 mmHg PV Peak Eric 1.0 m/s [ 0.4 - 0.8 ] PV Peak PG 4 mmHg Lat E` Eric 0.09 m/s [ 0.10 - 0.15 ] E/E` 10.00 2D/MM Value Range Doppler ValueRange - FINDINGS: Study Quality: The study was technically adequate. BP: Blood pressure: 131/65 mmHg. Left Ventricle: Normal global and regional left ventricular systolic function. EjectionFraction is measured at (Simpsons) 72 %. Ejection Fraction is estimated to be 70-75 %.Diastolic indices overall most consistent with Grade I diastolic dysfunction(impaired myocardial relaxation without elevated filling pressures). Normal left ventricularcavity size. LV wall thickness is within normal limits. Right Ventricle: Normal right ventricular systolic function. Low normal right ventricularsystolic function. Normal right ventricular size. Left Atrium: There is mild enlargement of the left atrium. Right Atrium: The right atrium is normal in size. Atrial Septum: Normal appearing atrial septum. Mitral Valve: Normal appearance of the mitral valve leaflets. Mitral stenosis is absent.There is no mitral regurgitation. Mild mitral annular calcification. Aortic Valve: Aortic valve appears tricuspid in configuration. Aortic cusps appearmoderately calcified. There is severely reduced aortic valve cusp separation. Severeaortic stenosis. 0.7 cm2 by continuity equation. There is no aorticregurgitation. Tricuspid Valve: Normal appearance of the tricuspid leaflets. Trace tricuspidregurgitation. Normal right ventricular systolic pressure. Pulmonic Valve: Normal appearance and function of the pulmonic valve. There is no pulmonicstenosis. There is no pulmonic regurgitation. Pericardium: There is an anterior echo free space consistent with epicardial fat pad.No significant pericardial effusion. Pleural Effusion: There is no apparent pleural effusion. Aortic Root and Aorta: Normal caliber aortic root. Aortic Arch: The aortic arch is poorly visualized. IVC: Normal appearance of the inferior vena cava. CONCLUSIONS: 1. Normal global and regional left ventricular systolic function. EjectionFraction is measured at (Simpsons) 72 %. Ejection Fraction is estimated to be 70-75 %.Diastolic indices overall most consistent with Grade I diastolic dysfunction(impaired myocardial relaxation without elevated filling pressures). Normal left ventricularcavity size. LV wall thickness is within normal limits. 2. Normal right ventricular systolic function. Low normal rightventricular systolic function. Normal right ventricular size. 3. There is mild enlargement of the left atrium. 4. Aortic valve appears tricuspid in configuration. Aortic cusps appearmoderately calcified. There is severely reduced aortic valve cusp separation. Severeaortic stenosis. 0.7 cm2 by continuity equation. There is no aorticregurgitation. Electronically Signed By: Kem Chapa MD [facility] 05/28/2024 7:49:59 PM CDT Ellie Wesley MD CV ECHO PROCEDURES Final Result * (ABNORMAL) POCT lipid panel (05/07/2024 11:58 AM TECHNICAL SUPPORT SPECIALIST) HDL, POC 32 > - 40 mg/dL Triglycerides, POC 206(A) < - 150 mg/dL LDL Cholesterol POC 27 < - 100 mg/dL Cholesterol Total, POC <100 < - 200 mg/dL Capillary blood 05/07/2024 1 1:58 AM TECHNICAL SUPPORT SPECIALIST Ellie Wesley MD POINT OF CARE TEST ORDER KELLY Final Result * (ABNORMAL) Hemoglobin A1c (04/11/2018 5:27 AM TECHNICAL SUPPORT SPECIALIST) Hgb A1C 7.8(H) 4.0 - 5.6 % [facility] Estimated Average Glucose 177 mg/dL [facility] Comment: The ADA recommends reporting an estimated Average Glucose (eAG) with all Hemoglobin A1c results using the equation derived from a study of 507 normal and diabetic adults. Minority populations were underrepresented and children were not included. (Diabetes Care 31:4903-2880, 2008). The eAG is not equivalent to a fasting glucose. Blood specimen (specimen) 04/11/2018 5:27 AM TECHNICAL SUPPORT SPECIALIST 04/11/2018 5:53 AM TECHNICAL SUPPORT SPECIALIST Narrative [facility] - 04/11/2018 6:10 AM TECHNICAL SUPPORT SPECIALIST us Arley Garcia MD LAB BLOOD ORDERABLES Final Res ult [facility] [address] [place] [address] from Last 3 Months or Most Recently Relevant to Health Maintenance Insurance [facility] [place] [address] [employer] [place] MEDICARE ADVANTAGE [facility] MEDICARE ADVANTAGE Advance Directives For more information, please contact: [phone] * Full Code (Latest Code Status on File) Date Activated Date Inactivated Comments 01/10/2020 9:06 AM 01/10/2020 4:16 PM * Full Code Date Activated Date Inactivated Comments 08/30/2018 11:25 AM 09/01/2018 4:13 PM * Full Code Date Activated Date Inactivated Comments 04/10/2018 2:18 PM 04/12/2018 2:49 PM * Full Code Date Activated Date Inactivated Comments 10/30/2017 10:42 AM 10/31/2017 12:13 PM * Full Code Date Activated Date Inactivated Comments 10/06/2017 9:12 AM 10/07/2017 12:16 PM Care Teams Epic Radiant Analyst Relationship Specialty Start Date End Date Christiano Enamorado MD [address] [address] PCP - General Family Medicine 11/30/21 Malick Mcgregor MD [address] [facility] [address] [place] [address] Consulting Physician Cardiology 04/12/18
--- OUTSIDE RECORDS SUMMARY | 2024-06-18 14:27 | XMS_ITS | Encounter Summary ---
Author Organization [facility] Healthcare Address [address] [place] [address] Care Team Providers Care Journalism Teacher Name Role Phone Malick Mcgregor MD Unavailable [phone] Christiano Enamorado MD Primary Care Provider [phone] Reason for Visit * Reason Onset Date Comments Test Results 06/04/2024 Encounter Details Date Type Department Care Team (Late st Contact Info) Description 06/04/2024 Results Follow-Up [facility] Medical Group Cardiology [address] [facility] [address] [place] [address] Emir Wesley MD [address] [facility] [address] [place] [address] Social History Tobacco Use Types Packs/Day Years Used Date Smoking Tobacco: Former Smokeless Tobacco: Never Comments:smoked only during service quit 1965 /1966 Alcohol Use Standard Drinks/Week Comments No 0 (1 standard drink = 0.6 oz pur e alcohol) Sex and Gender Information Value Date Recorded Sex Assigned at Not on file Legal Sex Male 11:39 PM VISUAL MANAGER Gender Identity Not on file Sexual Orientation Not on file documented as of this encounter Miscellaneous Notes * Telephone Encounter - Jannette Delong - 06/04/2024 9:40 AM CDT Spoke with pt and he was notified with results and recommendations. Routing to scheduling pool * Telephone Encounter - Jannette Delong - 06/04/2024 8:06 AM CDT Called and lvm for pt to cb * Telephone Encounter - Jannette Delong - 06/04/2024 7:58 AM CDT ----- Message from Emir Wesley MD sent at 06/02/2024 5:44 PM CDT ----- Normal heart function, but aortic stenosis appears severe. Please have him set up for Right and left heart catheterization for further evaluation. JLS ----- Message ----- From: Interface, Cardiology Results In Sent: 05/28/2024 7:50 PM CDT To: Emir Wesley MD documented in this encounter Plan of Treatment Upcoming Encounters Date Type Department Care Team (Latest Contact Info) Description 07/04/2024 10:20 AM CDT Hospital Encounter [facility] [address] [place] [phone] Emir Wesley MD [address] [id number] Nonrheumatic aortic valve stenosis 07/04/2024 10:20 AM CDT - 07/04/2024 11:55 AM CDT Surgery [facility] [address] [address] Emir Wesley MD [address] [facility] [address] [place] [address] RIGHT LEFT HEART CATHETERIZATION WITH CORONARY ANGIOGRAPHY GRAFT AND WITH OR WITHOUT LEFT VENTRICULOGRAPHY [id number] documented as of this encounter Visit Diagnoses Not on filedocumented in this encounter Care Teams Journalism Teacher Relationship Specialty Start Date End Date Christiano Enamorado MD [address] [employer] [address] PCP - General Family Medicine 11/30/21 Malick Mcgregor MD [address] [facility] [address] [place] [address] Consulting Physician Cardiology 04/12/18 documented as of this encounter
--- OUTSIDE RECORDS SUMMARY | 2024-06-18 14:27 | XMS_ITS | Referral Summary ---
Author Organization [facility] Address [address] [place] [address] Care Team Providers Care Garage Door Installer Name Role Phone Malick Mcgregor MD Unavailable [phone] Christiano Enamorado MD Primary Care Provider [phone] Encounters Date Type Department Care Team Description 06/11/2024 Telephone [facility] Cardiology [facility] [facility] [address] [place] [address] Ellie Wesley MD Cath Rescheduling 06/04/2024 Telephone [facility] Cardiology [address] [place] [address] [address], [place] [address] Ellie Wesley MD [facility] Scheduling 06/04/2024 Results Follow-Up [facility] Cardiology [address] [place] [address] [address], [place] [address] Ellie Wesley MD 05/27/2024 Telephone [facility] Cardiology [address] [place] [address] [place] [phone] Ellie Wesley MD 05/27/2024 1:30 PM CDT Ancillary Procedure [facility] Cardiology [address] [place] [phone] 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) (HCC) 05/07/2024 10:30 AM CREDIT COLLECTION ASSOCIATE Office Visit [facility] Cardiology [address] [place] [address] [place] [phone] Ellie Wesley MD 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 Resume metformin after 2 days on 09/03/18 09/04/19 19 Active Additional Information Patient taking differently:1,000 mg oralDaily with breakfast, (No instructions reported), Reported on 05/07/2024 aspirin 81 mg enteric coated tablet Take 1 tablet (81 mg total) by mouth daily Active rosuvastatin (CRESTOR) 20 mg tablet Take 1 tablet (20 mg total) by mouth daily 100 tablet 2 04/19/19 25 02/07/2 026 Active metoprolol tartrate (LOPRESSOR) 25 mg immediate release tablet Take 1 tablet (25 mg total) by mouth 2 (two) times a day 200 tablet 2 04/19/19 Active Eliquis 5 mg tablet Take 1 tablet (5 mg total) by mouth 2 (two) times a day 200 tablet 2 04/19/19 25 026 Active dilTIAZem (CARDIZEM) 30 mg tablet Take [...] please send one year supply 100 tablet 3 05/01/19 25 Active clindamycin (CLEOCIN) 300 mg capsule TAKE [...] (20 mg total) by mouth daily 06/04/19 25 025 Discontinued Active Problems Problem Noted Date [...] artery disease of n ative artery of seneca heart with stable angina pectoris ([facility]) 08/28/2018 Overview (08/28/2018): Added automatically from request for surgery [id number] Assessment & Plan (12/08/2022 11:48 AM CDT): [...] (09/19/2017): Added automatically from request for surgery [id number] Encounter for postoperative care 11/03/2014 Overview (06/17/2016): Post surgical visit Bladder pain 05/27/2014 Resolved Problems Problem Noted Date Diagnosed Date Resolved Date Chest pain 01/06/2020 12/07/2022 Overview (01/06/2020): Added automatically from request for surgery [id number] Chest pain due to myocardial ischemia 08/31/2018 12/07/2022 Unstable angina pectoris ([facility]/HCC) 08/28/2018 09/29/2021 Overview (08/28/2018): Added automatically from request for surgery [id number] Acute chest pain 04/10/2018 09/29/2021 Acute coronary syndrome (CMS/HCC) 04/10/2018 09/29/2021 Overview (04/10/2018): Added automatically from request for surgery [id number] Coronary artery disease invo lving seneca coronary artery of seneca heart without angina pectoris 10/09/2017 09/29/2021 Overview (10/09/2017): Added automatically from request for surgery [id number] Angina pectoris, unstable (CMS/HCC) 09/19/2017 09/29/2021 Overview (09/19/2017): Added automatically from request for surgery [id number] Coronary artery disease invo lving coronary bypass graft of seneca heart with unstable angina pectoris ([facility]) 09/19/2017 09/29/2021 Overview (09/19/2017): Added automatically from request for surgery [id number] Immunizations Immunization Administration Dates Next Due Influenza, Quadrivalent, Hig h Dose, Preservative Free, Intrr 01/30/2020 Influenza, Unspecified 02/10/2009,2007,01/01/2007,2005 Pneumococcal, Unspecified 03/13/2006 Td, Unspecified 02/13/2006 Tdap 08/29/2021 Social History Tobacco Use Types Packs/Day Years Used Date Smoking Tobacco: Former Smokeless Tobacco: Never Tobacco Cessation:Counseling Given: Not Answered Comments:smoked only during service quit 1965 Alcohol Use Standard Drinks/Week Comments No 0 (1 standard drink = 0.6 oz pur e alcohol) Sex and Gender Information Value Date Recorded Sex Assigned at Not on file Legal Sex Male 11:39 PM CREDIT COLLECTION ASSOCIATE Gender Identity Not on file Sexual Orientation Not on file Last Filed Vital Signs Vital Sign Reading Time Taken Comments Blood Pressure 158/80 05/07/2024 11:27 AM CREDIT COLLECTION ASSOCIATE Pulse 86 05/07/2024 11:27 AM CREDIT COLLECTION ASSOCIATE Temperature 36.8 C (98.3 F) 08/29/2021 1:45 PM CDT Respiratory Rate 20 08/29/2021 1:45 PM CDT Oxygen Saturation 98% 05/07/2024 11:27 AM CREDIT COLLECTION ASSOCIATE Inhaled Oxygen Concentration - - Weight 102 kg (224 lb 12.8 oz) 05/07/2024 11:27 AM CREDIT COLLECTION ASSOCIATE Height 188 cm (6' 2 ) 05/07/2024 11:27 AM CREDIT COLLECTION ASSOCIATE Body Mass Index 28.86 05/07/2024 11:27 AM CREDIT COLLECTION ASSOCIATE Plan of Treatment Upcoming Encounters Date Type Department Care Team (Latest Contact Info) Description 07/04/2024 10:20 AM CDT Hospital Encounter [facility] [address] [place] [address] Ellie Wesley MD [address] [facility] [address] [place] [address] Nonrheumatic aortic valve stenosis 07/04/2024 10:20 AM CDT - 07/04/2024 11:55 AM CDT Surgery [facility] [address] [place] [address] Ellie Wesley MD [address] [place] [address] RIGHT LEFT HEART CATHETERIZATION WITH CORONARY ANGIOGRAPHY GRAFT AND WITH OR WITHOUT LEFT VENTRICULOGRAPHY [id number] Medical Devices Implanted Type Area Maternal Child Nurse Device Identifier Shelf Expiration Date Model / Serial / Lot [employer] [id number] Synergy 3.5mm 38mm 144cm Radiopaque 1 Access Port Inflation Lumen - [id number] Implanted:Qty: 1 on 08/31/2018 by Maurice Olivares MD at [facility] Stent N/A: Coronary [employer] 06/24/2020 [id number] / / [id number] [employer] [id number] Synergy 3mm 38mm 144cm Radiopaque 1 Access Port Inflation Lumen - [id number] Implanted:Qty: 1 on 08/31/2018 by Maurice Olivares MD at [facility] Stent N/A: Coronary [employer] Elvin 06/04/2020 [id number] / / [id number] Description:TACHO to RCA [employer] [id number] Synergy 4mm 38mm 144cm Radiopaque 1 Access Port Inflation Lumen - [id number] Implanted:Qty: 1 on 08/31/2018 by Maurice Olivares MD at [facility] Stent N/A: Coronary [employer] Elvin 06/18/2020 [id number] / / [id number] Description:TACHO to RCA [employer] X [id number] Resolute Basil 3.5mm 2.1-2.7fr 18mm 140cm Rapid Exchange - [id number] Implanted:Qty: 1 on 10/06/2017 by Malick Mcgregor MD at [facility] [employer] X 05/13/2019 [id number] / / [id number] [employer] X [id number] Resolute Basil 2.25mm 2.1-2.7fr 12mm 140cm Rapid Exchange - [id number] Implanted:Qty: 1 on 10/30/2017 by Malick Mcgregor MD at [facility] [employer] X 12/10/2018 [id number] / / [id number] [employer]vin [id number] Synergy 4mm 20mm 144cm Radiopaque 1 Access Port Inflation Lumen - [id number] Implanted:Qty: 1 on 04/11/2018 by Malick Mcgregor MD at [facility] N/A: Coronary [employer]vin [id number] 10/25/2019 [id number] / / [id number] Description:SVG toRCA Procedures Procedure Name Priority Date/Time Associated Diagnosis Comments CBC WITH AUTO DIFFERENTIAL Routine 06/10/2024 12:00 PM CDT Nonrheumatic aortic valve stenosis BASIC METABOLIC PANEL Routine 06/10/2024 12:00 PM CDT Nonrheumatic aortic valve stenosis TRANSTHORACIC ECHO (TTE) COMPLETE W DOPPLER/CF WO CONTRAST Routine 05/27/2024 2:14 PM CDT 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) (HCC) POCT LIPID PANEL Routine 05/07/2024 11:5 8 AM CREDIT COLLECTION ASSOCIATE Hypercholesteremia HEMOGLOBIN A1C Routine 04/11/2018 5:27 AM CREDIT COLLECTION ASSOCIATE from Last 3 Months or Most Recently Relevant to Health Maintenance Results * (ABNORMAL) CBC with auto differential (06/10/2024 12:00 PM CDT) WBC 5.6 3.4 - 10.8 x10E3/uL [facility] [...] - 06/11/2024 7:09 AM CDT Performed at: - [facility] [address] [id number] Millinery Teacher: Harjeet Leung PhD, Phone: [phone] us Ellie Wesley MD LAB BLOOD ORDERABLES Fin al Result [facility] - 01 * (ABNORMAL) Basic metabolic [...] 06/10/2024 12:0 0 PM CDT 06/10/2024 Narrative [facility] - 06/11/2024 7:09 AM CDT Performed at: [place] [id number] Millinery Teacher: Harjeet Leung PhD, Phone: [phone] us Ellie Wesley MD LAB BLOOD ORDERABLES Fin al Result [facility] - 01 * TRANSTHORACIC ECHO (TTE) COMPLETE W DOPPLER/CF WO CONTRAST (05/27/2024 2:14 PM CDT) Pathologist [facility] LV EF 70-75 % CONS SCIMAGE Anatomical Region Laterality Modality Ultrasound 05/27/2024 1:47 PM CDT Narrative 05/28/2024 7:50 PM CDT ECHOCARDIOGRAM Patient Name: VENKATESH KAHN : 1945 Study Date: 05/27/2024 1:47:20 PM Gender: M Tech: [facility] Location: [facility] Ref Provider: ELLIE WESLEY Height(Cm): 188 BSA: 2.33 Weight(Kg): 104.33 BP: 131 / 65 Order Provider: WESLEYELLIE - PROCEDURES: Echocardiographic Report: Transthoracic Echocardiogram with complete 2D, M-Mode, Spectral and Color Flow Doppler examination. INDICATIONS: I25.118 Atherosclerotic heart disease of seneca coronary artery with other forms of angina [...] regurgitation. Electronically Signed By: Kem Chapa MD [facility] 05/28/2024 7:49:59 PM CDT Procedure Note Kem Chapa MD - 05/28/2024 ECHOCARDIOGRAM Patient Name: VENKATESH KAHN : 1945 Study Date: 05/27/2024 1:47:20 PM Gender: M Tech: [facility] Location: [facility] Ref Provider: ELLIE WESLEY Height(Cm): 188 BSA: 2.33 Weight(Kg): 104.33 BP: 131 / 65 Order Provider: ELLIE WESLEY - PROCEDURES: Echocardiographic Report: Transthoracic Echocardiogram with complete 2D, M-Mode, Spectral and ColorFlow Doppler examination. INDICATIONS: I25.118 Atherosclerotic heart disease of seneca coronary artery with otherforms of angina pectoris. [...] 0.6 - 1.3 ] MV A Peak Eirc 1.3 m/s [ 1.0 - 1.2 ] [...] aorticregurgitation. Electronically Signed By: Kem Chapa MD [facility] 05/28/2024 7:49:59 PM CDT Ellie Wesley MD CV ECHO PROCEDURES Final Result * (ABNORMAL) POCT lipid panel (05/07/2024 11:58 AM CREDIT COLLECTION ASSOCIATE) [facility] HDL, POC 32 > - 40 mg/dL Triglycerides, POC 206(A) < - 150 mg/dL LDL Cholesterol POC 27 < - 100 mg/dL Cholesterol Total, POC <100 < - 200 mg/dL Capillary blood 05/07/2024 1 1:58 AM CREDIT COLLECTION ASSOCIATE Ellie Wesley MD POINT OF CARE TEST ORDER KELLY Final Result * (ABNORMAL) Hemoglobin A1c (04/11/2018 5:27 AM CREDIT COLLECTION ASSOCIATE) Pathologist [facility] Hgb A1C 7.8(H) 4.0 - 5.6 % [facility] Estimated Average Glucose 177 mg/dL [facility] Comment: The ADA recommends reporting an estimated Average Glucose (eAG) with all Hemoglobin A1c results using the equation derived from a study of 507 normal and diabetic adults. Minority populations were underrepresented and children were not included. (Diabetes Care 31:8890-0547, 2008). The eAG is not equivalent to a fasting glucose. Blood specimen (specimen) 04/11/2018 5:27 AM CREDIT COLLECTION ASSOCIATE 04/11/2018 5:53 AM CREDIT COLLECTION ASSOCIATE Narrative [facility] - 04/11/2018 6:10 AM CREDIT COLLECTION ASSOCIATE us Arley Garcia MD LAB BLOOD ORDERABLES Final Res ult [facility] [address] Department [place] [address] from Last 3 Months or Most Recently Relevant to Health Maintenance Insurance [facility] MEDICARE ADVANTAGE [facility] MEDIC[facility] Address: [address] [address] [place] [address] IDPA IDPA [facility] MEDICARE ADVANTAGE [facility] Address: [address] [place] [id number] [facility] MEDICARE ADVANTAGE Advance Directives For more information, please contact: [phone] * Full Code (Latest Code Status on [...] 9:12 AM 10/07/2017 12:16 PM Care Teams Garage Door Installer Relationship Specialty Start Date End Date Christiano Enamorado MD [address] [address] PCP - General Family Medicine 11/30/21 Malick Mcgregor MD [address] [facility] [address] [place] [address] Consulting Physician Cardiology 04/12/18
--- OUTSIDE RECORDS SUMMARY | 2024-06-18 14:27 | XMS_ITS | Continuity of Care Document ---
Author Name [facility] Organization [facility] Care Team Providers Care Pipe Smoking Machine Offbearer Name Role Phone [facility] Unavailable Unavailable Problems Combined list of problems from [facility] and [facility] facilities. It does not include entries that were removed or entered in error. 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 Intermittent Claudication * (ICD-9-CM 443.9) Active Condition [facility] Obesity * (ICD-9-CM 278.00) Active Condition [facility] Peripheral Neuropathy (ICD-9-CM 355.9) Active Condition [facility] Psoriasis * (ICD-9-CM 696.1) Active Condition [facility] Medications Combined list of outpatient medications from [facility] and [facility] facilities.Medications provided include 1) outpatient medications from the last 15 months, and 2) patient-reported medications. Medication Details Route Status Patient Instructions Prescription Expires Prescription Number Last Dispense Date Ordering Provider Order Date Order Qty Source ALLOPURINOL 100MG TAB TAKE ONE TABLET BY MOUTH ONCE A DAY ORAL ACTIVE LUCILLE ORTEGA 2009 [facility] MAXIMO Wilkins ASPIRIN 81MG TAB,EC TAKE ONE TABLET BY MOUTH QD ORAL ACTIVE LUCILLE ORETGA 2008 [facility] MAXIMO Wilkins BETAMETHASO NE DIPROPIONAT E CREAM,TOP APPLY TO AFFECTED AREA(S) THREE TIMES A DAY TOPICA L ACTIVE RITTER-DARIO [facility] COLCHICINE 0.6MG TAB TAKE ONE TABLET BY MOUTH ONCE A DAY ORAL ACTIVE RITTER-DARIO LUCILLE BUENO 2009 [facility] DIGOXIN 0.25MG TAB TAKE ONE TABLET BY MOUTH ONCE A DAY ORAL ACTIVE RITTER-LUCILLE TANNER 2008 [facility] GABAPENTIN 400MG CAP TAKE 1 CAPSULE BY MOUTH THREE TIMES A DAY ORAL ACTIVE RITTER-DARIO LUCILLE BUENO 2009 [facility] GLIPIZIDE 5MG TAB TAKE ONE-HALF TABLET BY MOUTH TWO TIMES A DAY BEFORE MEALS ORAL ACTIVE RIYA-LUCILLE TANNER 2008 [facility] HYDROCHLORO THIAZIDE 25MG TAB TAKE ONE TABLET BY MOUTH EVERY MORNING ORAL ACTIVE RIYA-LUCILLE TANNER 2008 [facility] LISINOPRIL 40MG TAB TAKE ONE TABLET BY MOUTH ONCE A DAY ORAL ACTIVE RITTER-LUCILLE TANNER 2008 [facility] METFORMIN HCL 1000MG TAB TAKE ONE TABLET BY MOUTH AT BEDTIME ORAL ACTIVE RITTER-LUCILLE TANNER 2008 [facility] OMEGA-3-ACI D ETHYL ESTERS 1000MG CAP,ORAL TAKE 1 CAPSULE BY MOUTH TWICE A DAY ORAL ACTIVE RIYA-LUCILLE TANNER 2008 [facility] ROSUVASTATI N CA 10MG TAB TAKE ONE-HALF TABLET BY MOUTH EVERY EVENING ORAL ACTIVE RITTER-LUCILLE TANNER 2008 [facility] Allergies, Adverse Reactions, Alerts Combined list of allergies from Department of Defense and Veterans Affairs facilities. It does not include entries that were removed or entered in error. Substance Category Reaction Severity Reaction type Status Date Reported Comments Source NIASPAN Propensity to adverse reactions to drug (finding) Delirium, Flushing active 8 [facility] PENICILLIN Propensity to adverse reactions to drug (finding) Urticaria active 6 [facility] PRAVASTATIN Propensity to adverse reactions to drug (finding) Muscle pain MILD active 9 [facility] SIMVASTATIN Propensity to adverse reactions to drug (finding) Muscle pain, Muscle weakness active 7 [facility] Immunizations Combined list of available immunizations from the Department of [facility] and [facility] facilities. Immunization Series Date Given Administered By Site Reaction Lot Number CVX Code Drug Sawyer Helper Status Comments Source INFLUENZA, UNSPECIFIED FORMULATION 2008 88 complet ed [facility] INFLUENZA, UNSPECIFIED FORMULATION 2007 88 complet ed [facility] INFLUENZA, UNSPECIFIED FORMULATION 2006 88 complet ed [facility] PNEUMOCOCCAL, UNSPECIFIED FORMULATION 2006 109 complet ed [facility] TD(ADULT) UNSPECIFIED FORMULATION 2005 139 complet ed Left Deltoid [facility] INFLUENZA, UNSPECIFIED FORMULATION 2005 REY CARDOZA 88 comple t ed [facility] Encounters Combined list of: 1) Encounters from Department of Veterans Affairs facilities going backup to the last 18 months, not all [place] inpatient encounters are included; 2) Encounters from the Department [facility] facilities going backup to 280 months. Location Location Details Encounter Type Encounter Number Reason For Visit Attending Provider ADM Date DC Date Status Disposition Source [facility] Outpatient Encounter [id number] 05/29 [facility] Social History Combined list of available smoking, tobacco, and other social history from Department of [facility] and [facility] facilities. Social History Type Response Date Comment Sourc e Tobacco smoking status NHIS QUIT TOBACCO >7 YEARS AGO 02/13/2006 [facility]
--- OUTSIDE RECORDS SUMMARY | 2024-06-18 14:27 | XMS_ITS | Clinical Summary ---
Author Organization [facility] Address [address] [place] [address] Care Team Providers Care Sand Technologist Name Role Phone Isaiah Connor MD Primary Care Provider Whitley potter Source Comments [facility],non-owned Affiliates and Associated Physician Practices is amultiple site organization consisting of ambulatory clinics and hospital sitesin [place], [place], [place] and [place]. This disclosure is being madepursuant to the Care Everywhere program and may not contain all information available regarding this patient. Last updated 17[facility] Allergies Active Allergy Reactions Criticality Noted Date Comments Penicillins Rash Medium 06/28/2017 Medications * Be aware that medications may not be up to date on this document. Alwaysverify current medications with the patient. Medication Sig Dispensed Refills Start Date End Date Status allopurinol (ZYLOPRIM) 300 MG tablet Take 1 tablet by mouth once daily 06/19/2017 Active DIGOX 125 MCG tablet Take 1 tablet by mouth once daily 06/19/2017 Active gabapentin (NEURONTIN) 600 MG tablet Take 1 tablet by mouth 4 times daily 06/19/2017 Active glipiZIDE (GLUCOTROL) 5 MG tablet Take 1 tablet by mouth 2 times daily 06/19/2017 Active lisinopril (PRINIVIL; ZESTRIL) 10 MG tablet Take 1 tablet by mouth once daily 06/19/2017 Active metFORMIN (GLUCOPHAGE) 1000 MG tablet Take 1 tablet by mouth at bedtime 06/19/2017 Active metoprolol tartrate (LOPRESSOR) 25 MG tablet Take 1 tablet by mouth once daily 06/19/2017 Active ASPIRIN 81 PO Take 1 tablet by mouth once daily Active Calcium Carb-Cholecalcifero l (CALCIUM 600 + D PO) Take 1 tablet by mouth 2 times daily Active nitroGLYCERIN (NITROSTAT) 0.4 MG tablet Dissolve 0.4 mg under the tongue every 5 minutes as needed for Angina Active aspirin (ASPIRIN) 325 MG tablet Take 325 mg by mouth every 4 hours as needed for Pain or Fever Active acetaminophen (TYLENOL) 500 MG tablet Take 1,000 mg by mouth 4 times daily Maximum allowable Acetaminophen amount = 4 Grams (4000 mg) / 24 hours. Active Active Problems No known active problems Social History Tobacco Use Types Packs/Day Years Used Date Smoking Tobacco: Never Smokeless Tobacco: Never Alcohol Use Standard Drinks/Week Comments No 0 (1 standard drink = 0.6 oz pur e alcohol) Sex and Gender Information Value Date Recorded Sex Assigned at Not on file Gender Identity Not on file Sexual Orientation Not on file Last Filed Vital Signs Vital Sign Reading Time Taken Comments Blood Pressure 153/80 07/19/2017 10:51 AM CDT Pulse 65 07/19/2017 10:51 AM CDT Temperature - - Respiratory Rate - - Oxygen Saturation 97% 07/19/2017 10:51 AM CDT Inhaled Oxygen Concentration - - Weight 99.8 kg (220 lb) 07/19/2017 7:24 AM CDT Height 188 cm (6' 2 ) 07/19/2017 7:24 AM CDT Body Mass Index 28.25 07/19/2017 7:24 AM CDT Plan of Treatment Health Maintenance Due Date Last Done Comments DTAP/TDAP/TD VACCINES (1 - Tdap) 09/08/1962 PNEUMOCOCCAL VACCINE 50+ (1 of 1 - PCV) 09/08/1993 ZOSTER VACCINE (1 of 2) 09/08/1993 Respiratory Syncytial Virus (RSV) Vaccine Pt: or over 60 yrs (1 - 1-dose 75+ series) 09/08/2018 COVID-19 VACCINE ( - 2023-2 5 season) 2023 DEPRESSION SCREENING 03/13/2024 MEDICARE AWV CALENDAR YEAR 2024 INFLUENZA VACCINE (Season Ended) 2024 HEPATITIS B VACCINE Aged Out No longe r eligible based on patient's age to complete this topic HIB VACCINE Aged Out No longer eligi ble based on patient's age to complete this topic HPV VACCINE Aged Out No longer eligi ble based on patient's age to complete this topic MENINGOCOCCAL (Group B) VACC INE SHARED DECISION-MAKING Aged Out No longer eligibl e based on patient's age to complete this topic MENINGOCOCCAL GROUPS A/C/Y/W VACCINE Aged Out No longer eligible b ased on patient's age to complete this topic Care Teams Sand Technologist Relationship Specialty Start Date End Date Isaiah Connor MD PCP - General 06/28/17
--- OUTSIDE RECORDS SUMMARY | 2024-06-18 14:27 | XMS_ITS | Continuity of Care Document ---
Author Organization [facility] Address [address] [place] [address] [address] [place] [address] Phone Care Team Providers Care Sterile Processing Technologist Name Role Phone Donovan Baca Unavailable Unavailable Procedures Procedure Date Eye Exam & Treatment Refraction Eye Exam & Treatment Refraction Anti-reflective Coating Eye Exam & Treatment Refraction BF Plastic Sphcyl [place] To +/-4d .12-2d Tint Photochromatic, Plastic Anti-reflective Coating Tax - Medical Advance Directives Directive Yes / No Effective Date File Name No Information Encounters Encounter Description Practice Location Reason(s) For Visit Diagnoses Date Provider Providers Copied on Encounter [facility], [address] [place] [address] [address], [place], [place], [id number], tel:[phone] [facility] No Information 2-201 0 Keven Man. [address] , [address], [place], [address], [place]. tel:[phone] [facility], [address] [place] [address] [address], [place], [place], [address], tel:[phone] [facility] No Information 0 5-200 9 Keven Man. [address] , [address], [place], [address], [place]. tel:[phone] [facility] [place], [address], [place], [place], [address], [place] tel:[phone] [facility] No Information 7 [facility] . [address] [facility] [address] [facility], [address], [place], [place], [address], [place]. tel:[phone] Consulting Provider: Veronica William, [address] [place] [address], [address]. tel:[phone] [facility] [place], [address] [address], [place], [place], [address], [place] tel:[phone] [facility] No Information 7 Doisy Edward. [facility] , [address], [place], [address], [place]. tel:[phone] [facility] [place], [address] [address], [place], [place], [address], [place] tel:[phone] [facility] No Information 7 [facility] . [address], [address], [place], [place], [address], [place]. tel:[phone] Referring Provider: Colt Rosa, [address], [place], [address]. tel:[phone] g Provider: Shira Cabello, [address] [place] [address], [address]. tel:[phone] Family History Family Member Type Diagnosis Age At Onset No Information Payers Payer name Insurance type Covered libertarian ID Authoriza tion(s) No Information Social History Type Description Quantity Date Captured Comments Sex Male Smoking Status No Information Chief Complaint And Reason For Visit No Information Reason For Referral Reason For Referral No Information History Of Present Illness Encounter Date Complaint History Of Prese nt Illness No Information Functional Status Date Functional Assessmen t No Information Instructions Date Instruction Additional Infor mation No Information Assessments Type Assessment Date No Information Patient Care Teams Name Effective Dates (start - stop) Status Members No Information
--- OUTSIDE RECORDS SUMMARY | 2024-06-18 14:27 | XMS_ITS | Continuity of Care Document ---
Author Organization [facility] Address [address] [place] [address] Phone Care Team Providers Care Reduction Furnace Operator Helper Name Role Phone Mikey Ellis MD Unavailable Unavailable Procedures Procedure Date INJECTION ANESTHETIC AND/OR STERIOD, TRANS EPIDURAL LUMB OR SACRAL,, SINGLE LEVE SURGICAL TRAY LOW OSMOLAR CONTRAST (200 TO 299 MG IODI NE) DEPO-MEDROL 80MG INJECTION ANESTHETIC AND/OR STERIOD, TRANS EPIDURAL LUMB OR SACRAL,, SINGLE LEVE SURGICAL TRAY LOW OSMOLAR CONTRAST (200 TO 299 MG IODI NE) DEPO-MEDROL 80MG Advance Directives Directive Yes / No Effective Date File Name No Information Encounters Encounter Description Practice Location Reason(s) For Visit Diagnoses Date Provider Providers Copied on Encounter [facility] [address], [place], [place], [address], tel:[phone] [facility] No Information Caleb Jensen. [address], [place], [place], [address], [place]. tel:[phone] Referring Provider: Aubrey Davenport DO, [address], [place], [address]. tel:[phone] [facility], [address], [place], [place], [address], tel:[phone] [facility] No Information Jeff Buckley. [address], [place], [place], [address], [place]. tel:[phone] Referring Provider: Aubrey Davenport DO, [address], [place], [address]. tel:[phone] Family History Family Member Type Diagnosis Age At Onset No Information Payers Payer name Insurance type Covered constitution party ID Authoriza tibravo(s) [facility] MDCR COMPLETE HMO MB [id number] Social History Type Description Quantity Date Captured [...]
--- OUTSIDE RECORDS SUMMARY | 2024-06-18 14:28 | XMS_ITS | Continuity of Care Document ---
Author Organization [facility] Address [address] [place] [address] Phone Care Team Providers Care Greeting Card Writer Name Role Phone Mikey Ellis MD Unavailable [...] Diagnoses Date Provider Providers Copied on Encounter [facility], [address], [place], [place], [address], tel:[phone] [facility] No Information Caleb Jensen. [address], [place], [place], [address], [place]. tel:[phone] Referring Provider: Aubrey Davenport DO, [address], [place], [address]. tel:[phone] [facility], [address], [place], [place], [address], tel:[phone] [facility] No Information Jeff Buckley. [address], [place], [place], [address], [place]. tel:[phone] Referring Provider: Aubrey Davenport DO, [address], [place], [address]. tel:[phone] Family History Family Member Type Diagnosis Age At Onset No Information Payers Payer name Insurance type Covered constitution party ID Authoriza tibravo(s) [facility] MDCR COMPLETE HMO MB [id number] Social History Type Description Quantity Date Captured [...]
--- OUTSIDE RECORDS SUMMARY | 2024-06-18 14:28 | XMS_ITS | Continuity of Care Document ---
Author Organization [facility] Address [address] [place] [address] [address] [place] [address] Phone Care Team Providers Care Business Intelligence Reporting Analyst Name Role Phone Donovan Baca Unavailable Unavailable Procedures Procedure Date Eye Exam & Treatment Refraction Eye Exam & Treatment Refraction Anti-reflective Coating Eye Exam & Treatment Refraction BF Plastic Sphcyl [place] To +/-4d .12-2d Tint Photochromatic, Plastic Anti-reflective Coating Tax - Medical Advance Directives Directive Yes / No Effective Date File Name No Information Encounters Encounter Description Practice Location Reason(s) For Visit Diagnoses Date Provider Providers Copied on Encounter [facility], [address] [place] [address] [address], [place], [place], [address], tel:[phone] [facility] No Information 2-201 0 Keven Man. [address] , [address], [place], [address], [place]. tel:[phone] [facility], [address] [place] [address] [address], [place], [place], [address], tel:[phone] [facility] No Information 0 5-200 9 Keven Man. [address] , [address], [place], [address], [place]. tel:[phone] [facility], [address], [place], [place], [address], [place] tel:[phone] [facility] No Information 7 [facility] . [address] [facility] [address], [address], [place], [place], [address], [place]. tel:[phone] Consulting Provider: Veronica William, [address] [place] [address], [address]. tel:[phone] [facility], [address], [place], [place], [address], [place] tel:[phone] [facility] No Information 7 Doisy Edward. [facility] , [address], [place], [address], [place]. tel:[phone] [facility], [address], [place], [place], [address], [place] tel:[phone] [facility] No Information 7 [facility] . [address] [facility], [address], [place], [place], [address], [place]. tel:[phone] Referring Provider: Colt Rosa, [address], [place], [address]. tel:[phone] g Provider: Shira Cabello, [address] [place] [address], [address]. tel:[phone] Family History Family Member Type Diagnosis Age [...]
== END 2024-06-18 14:02 | disposition home or self-care (01) ==
PROVIDERS: Emergency Provider Nurse Practitioner Family; PCP Nurse Practitioner
DX: H61.23 Impacted cerumen, bilateral (principal); Z87.891 Personal history of nicotine dependence; I10 Essential (primary) hypertension; I25.10 Atherosclerotic heart disease of native coronary artery without angina pectoris; E11.42 Type 2 diabetes mellitus with diabetic polyneuropathy; Z79.84 Long term (current) use of oral hypoglycemic drugs; I48.91 Unspecified atrial fibrillation; K21.9 Gastro-esophageal reflux disease without esophagitis; M10.9 Gout, unspecified; E78.5 Hyperlipidemia, unspecified; M51.369 Other intervertebral disc degeneration, lumbar region without mention of lumbar back pain or lower extremity pain; E55.9 Vitamin D deficiency, unspecified; M15.9 Polyosteoarthritis, unspecified; Z95.5 Presence of coronary angioplasty implant and graft; Z96.653 Presence of artificial knee joint, bilateral; Z79.01 Long term (current) use of anticoagulants
CPT/HCPCS: 69209; 99213; G0463

== ENCOUNTER 2024-06-24 14:20 | Emergency (ER) | payer MEDICARE, SELFPAY ==
[2024-06-24 14:27] VITALS: BP 184/72; PULSE 57; RESP 20; TEMP 36.3; O2SAT 99
--- NOTE | 2024-06-24 14:41 | ED_ITS ---
HPI - Ear Problem General Chief complaint: Ear Stated complaint: ear clogged Time Seen by Provider: 06/24/24 14:21 Source: patient Mode of arrival: ambulatory Limitations: no limitations History of Present Illness HPI Narrative: Patient is an 78-year-old male that presents with feeling like his right ear is clogged and it is causing him to feel off balance. Patient was seen here on the and had wax removed from both ears. Patient states right ear continues to feel clogged the left ear is back to baseline. States he uses his walker at home due to feeling off balance but denies any falls or hitting his head. Patient still has not tried using his hearing aids. Patient tried to get in with PCP but they were booked out. Patient states he has been using the Flonase and Claritin as he was recommended. MD Complaint: ear pain Related Data Home Medications ?Medication ?Instructions ?Recorded ?Confirmed ?Last Taken ?Type calcium 500 mg (as 1 tablet PO DAILY 08/19/21 06/24/24 Unknown History carbonate)-vitamin D3 15 mcg (600 unit) tablet aspirin 81 mg tablet,delayed 81 mg PO DAILY 12/08/23 06/24/24 Unknown History release acetaminophen 325 mg tablet 325 mg PO QID PRN fever or pain 06/07/24 06/24/24 Unknown History lisinopril 20 mg tablet 20 mg PO DAILY 06/07/24 06/24/24 Unknown History lisinopril 10 mg tablet 10 mg PO DAILY 06/24/24 06/24/24 Unknown History Allergies Allergy/AdvReac Type Severity Reaction Status Date / Time Penicillins Allergy Severe Swelling Verified 06/24/24 14:22 Review of Systems Review of Systems: All systems reviewed & are unremarkable except as noted in HPI and below Constitutional: Constitutional: Denies body ache(s), Denies chills, Denies fever(s), Denies headache(s) and Denies malaise Eyes: Eyes: Denies blurry vision, Denies eye discharge and Denies irritation ENT: Denies headache(s), Reports hearing loss (Right ear), Denies nasal congestion, Denies nasal discharge and Denies sore throat Cardiovascular: Cardiovascular: Denies chest pain, Denies edema, Denies palpitations and Denies dyspnea on exertion Respiratory: Respiratory: Denies cough and Denies dyspnea on exertion Gastrointestinal: Gastrointestinal: Denies abdominal pain, Denies diarrhea, Denies nausea and Denies vomiting Musculoskeletal: Musculoskeletal: Denies back pain, Denies arthralgias and Denies muscle weakness Integumentary/Breasts: Skin/Breast: Denies pruritus and Denies rash Neurologic: Denies headache(s) Psychiatric: Psychiatric: Reports no additional psychiatric complaints Endocrine: Endocrine: Denies palpitations PMF Past Medical History Medical History Chronic thoracic spine pain MRI of the thoracic spine on 02/10/2023 reveals severe spondylosis. Lesion of skin of face Impacted cerumen, bilateral Hx of colonic polyp B12 deficiency Rib pain on left side Impacted cerumen of left ear Screening for diabetic retinopathy no diabetic retinopathy on 05/09/2022. Anterolisthesis of lumbar spine Degenerative disc disease, lumbar Retrolisthesis of vertebrae Low back pain with bilateral sciatica PSA elevation Anemia HLD (hyperlipidemia) Vitamin D deficiency Prostate cancer screening GERD (gastroesophageal reflux disease) Atrial fibrillation Gout Osteoarthritis of multiple joints Peripheral neuropathy Hypertension Diabetes type 2, controlled Encounter to establish care History of skin cancer Gallbladder disorder Diabetes CAD (coronary artery disease) Arthritis Surgical History Surgical History H/O heart bypass surgery Triple Bypass- 2014 H/O heart artery stent 2017, 2018 Hx of total knee replacement right knee- 2011 left knee-2011 Hx of cataract surgery Hx of cholecystectomy H/O knee surgery left knee-1999 H/O elbow surgery right elbow-1996 left elbow-2013 H/O hand surgery Bilateral 1996 H/O toe surgery 1988 Family History Family History Father Cancer Mother Heart disease Social History Social History Social History: Venkatesh is somewhat confident filling out medical forms. In the last 12 months he has received assistance from an organization or program with paying for medications, paying utility bills, and paying for food. Smoking status: Former smoker Alcohol intake: never Substance use: never Lack of Transportation: No Lack of Food: Never True Current Housing: I Have Housing Concerned About Future Housing: No Difficulty Paying Gas/Electric Bills: YES Difficulty Paying for Meds: No Currently Unemployed: No Education: Trade/Vocational Certificate Difficulty w/ Childcare or Family Care: No Living arrangements: alone Gender identity (if verbalized by the patient): Male Comments At time of signature, agree with nursing past medical, surgical, social and family history. There is no relevant family history pertinent to the presenting complaint? Exam Const: General: cooperative, healthy appearing, no acute distress and well nourished Nutritional Appearance: well nourished Orientation/consciousness: patient oriented x3 Limitations: no limitations HENMT: Head: normal to inspection, normocephalic and atraumatic Ears: hearing grossly normal bilaterally, EAC's normal, no periauricular adenopathy and TM abnormal wth effusion serous on the right and erythematous on the right Face/Nose/Sinus: Normal external nose present, Normal nares present, Normal nasal mucous membranes and turbinates present, No nasal discharge present, normal facial exam and sinuses nontender Face and sinus: normal facial exam and sinuses nontender Mouth: Yes Normal oral and palatal mucosa present, Yes lip normal, Yes tongue normal and Yes moist mucous membranes Throat: posterior oropharynx normal, tonsils normal and uvula midline Eyes: General: appearance normal, both eyes and all related structures Alignment and Position: alignment normal and position normal Eyelids: eyelids normal Pupils: Equal, round and reactive pupils present EOM: EOMs intact bilaterally Neck: Neck: normal visual inspection, full ROM, no lymphadenopathy and supple Chest: Chest palpation & inspection: normal inspection of the chest Resp: Effort & Inspection: normal respiratory effort and able to speak in complete sentences Auscultation: clear to auscultation bilaterally, no crackles, no rales, no rhonchi and no wheezes Cardio: Rate: regular rate Rhythm: regular rhythm Heart sounds: S1 normal heart sound present and S2 normal heart sound present Skin: General skin exam: normal color and no rashes or lesions noted Neuro: General: patient oriented x3 and moves all extremities Cranial nerves: Yes Equal, round and reactive pupils present Cognition (Neuro): normal cognition Speech: normal speech Gait exam (Neuro): Normal gait present Extrem: General: normal to inspection and full ROM Psych: Appearance: grossly normal and well kempt Mental Status: mental status grossly normal Speech and movement: Normal speech and movement present Course Course Emergency Course: Patient is aware of diagnosis, understands and agrees to treatment plan.? Anticipatory guidance given.? Patient agrees to follow-up as directed and is aware of reasons to seek care at the emergency department.? Portions of this record may have been created with voice recognition software? Level of Care: Express Care Visit Vital Signs Vital signs: Vital Signs Temperature 36.3 C L 06/24/24 14:27 Pulse Rate 57 L 06/24/24 14:27 Respiratory Rate 20 06/24/24 14:27 Blood Pressure 184/72 H 06/24/24 14:27 Pulse Oximetry 99 06/24/24 14:27 Oxygen Delivery Room Air 06/24/24 14:27 Temperature 36.3 C L 06/24/24 14:27 Pulse Rate 57 L 06/24/24 14:27 Respiratory Rate 20 06/24/24 14:27 Blood Pressure 184/72 H 06/24/24 14:27 Pulse Oximetry 99 06/24/24 14:27 Oxygen Delivery Room Air 06/24/24 14:27 Reviewed Medical Decision Making MDM Narrative Medical decision making narrative: Patient states he has not tried use his hearing aids since wax has been removed. Patient denies hitting head ever when he has fallen into wall due to feeling off balance. Patient went to PCP office and was told there are no available ap pointments. Patient given referral to ENT and course of antibiotics. No wax seen in either ear. Pt well hydrated appearing, in no respiratory distress, hemodynamically stable. Recommend supportive care. The patient is stable at time of discharge the clinical impression was discussed and the patient was given the opportunity to ask questions, which were addressed as completely as possible given the information available at present. Anticipatory guidance and return to care precautions were discussed and the importance of primary care follow-up was stressed and encouraged. The patient voiced understanding of the plan, indications to return, and the need for follow-up. Exam findings show no acute concerns or changes Patient is appropriate for outpatient treatment and follow-up. Differential diagnosis considered: Rodrigez virus, strep pharyngitis, allergic rhinitis, upper respiratory tract infection, sinusitis, rhinosinusitis, nasopharyngitis. viral pharyngitis, otitis media, otitis externa, otitis effusion, foreign body, cerumen impaction, viral syndrome, and influenza.? Medical Records Medical records reviewed: Yes I reviewed the external patient's medical records. Vital Signs Vital Signs: Vital Signs Temperature 36.3 C L 06/24/24 14:27 Pulse Rate 57 L 06/24/24 14:27 Respiratory Rate 20 06/24/24 14:27 Blood Pressure 184/72 H 06/24/24 14:27 Pulse Oximetry 99 06/24/24 14:27 Oxygen Delivery Room Air 06/24/24 14:27 Temperature 36.3 C L 06/24/24 14:27 Pulse Rate 57 L 06/24/24 14:27 Respiratory Rate 20 06/24/24 14:27 Blood Pressure 184/72 H 06/24/24 14:27 Pulse Oximetry 99 06/24/24 14:27 Oxygen Delivery Room Air 06/24/24 14:27 Discharge Plan Discharge Clinical Impression: Otitis media Qualifiers: Otitis media type: suppurative Chronicity: acute Laterality: right Recurrence: non-recurrent Spontaneous tympanic membrane rupture: without spontaneous rupture Qualified Code(s): H66.001 - Acute suppurative otitis media without spontaneous rupture of ear drum, right ear Patient Disposition: Home Condition: Stable Instructions: Ear Infection (GEN) Additional Instructions: Take antibiotics as directed. Recommend antihistamine such as Benadryl or Zyrtec at night time and Claritin or Nicole during the day until symptoms improve Flonase nasal spray, 1 spray in each nostril once daily until symptoms improve Also, recommend symptomatic treatment includes: rest, fluids, and increase humidity of the air at home. Recommend Acetaminophen as directed on the bottle to reduce fever, pain Please schedule a follow-up visit with your personal physician for further evaluation and treatment within 3-5days. If your symptoms persist, change or worsen significantly before you can contact your personal physician then please, without delay, go to the emergency department for further evaluation. If you continue to feel unsteady on feet or fall please go straight to the emergency de partment Your blood pressure was elevated above 120/80 today at Urgent Care. This puts you above the threshold for follow up visit with a primary care provider. High blood pressure does not usually cause any symptoms, however it may lead to kidney failure, stroke, heart disease just to name a few if untreated . Many people are anxious when seeing a provider or nurse. As a result, you are not di agnosed with hypertension at this time unless your blood pressure is persistently high at two office visits at least one week apart. Some things that can help lower blood pressure are lifestyle modifications, such as light exercise, decreased salt in diet, and weight loss. It is important to follow up with a PCP about this within 1 week. Patient Language: Czech Prescriptions: New cefdinir 300 mg capsule 300 mg PO Q12H 7 Days Qty: 14 0RF No Action fluticasone propionate [Flonase Allergy Relief] 50 mcg/actuation spray,suspension 1 spray intranasal DAILY Qty: 16 0RF Rx Instructions: administer into each nostril lisinopril 10 mg tablet 10 mg PO DAILY calcium carbonate-vitamin D3 500 mg-15 mcg (600 unit) tablet 1 tablet PO DAILY aspirin 81 mg tablet,delayed release (DR/EC) 81 mg PO DAILY acetaminophen 325 mg tablet 325 mg PO QID PRN (Reason: fever or pain) (DME) Dexcom G7 Sensor Device See Rx Instructions .Route Qty: 9 3RF Rx Instructions: Change every 10 days nitroglycerin 0.4 mg tablet, sublingual 0.4 mg sublingual Q5M PRN (Reason: chest pain) Qty: 30 1RF Rx Instructions: do not exceed 3 doses per episode lisinopril 20 mg tablet 20 mg PO DAILY metoprolol tartrate 25 mg tablet 25 mg PO BID Qty: 180 3RF rosuvastatin 20 mg tablet 20 mg PO DAILY Qty: 90 3RF diltiazem HCl 30 mg tablet 30 mg PO BID Qty: 180 3RF amiodarone 200 mg tablet 200 mg PO 3XW Qty: 36 3RF Eliquis 5 mg tablet 5 mg PO BID Qty: 180 3RF pantoprazole 40 mg tablet,delayed release (DR/EC) 40 mg PO QAM Qty: 90 3RF (DME) Dexcom G7 Kindergartner Misc See Rx Instructions .Route Qty: 1 0RF Rx Instructions: As directed isosorbide mononitrate 30 mg tablet extended release 24 hr 30 mg PO BID Qty: 180 3RF glipizide 5 mg tablet 5 mg PO BID Qty: 180 3RF allopurinol 300 mg tablet See Rx Instructions .ROUTE .COMPLEX Qty: 100 2RF Dose Instruction: TAKE 1 TABLET BY MOUTH DAILY Rx Instructions: TAKE 1 TABLET BY MOUTH DAILY (DME) Accu-Chek Daisy Plus test strp Strip See Rx Instructions .ROUTE .COMPLEX Qty: 100 2RF Dose Instruction: TEST ONCE DAILY Rx Instructions: TEST ONCE DAILY fenofibric acid (choline) 135 mg capsule,delayed release(DR/EC) 135 mg PO DAILY Qty: 90 3RF Follow-up/Referrals: Mikey Brumfield APRN [Primary Care Provider] - 1 Week Colt Santacruz MD [Physician] - 3 Days (Right ear decreased hearing) Time of Disposition: 14:48
[2024-06-24 14:45] VITALS: BP 148/98
--- OUTSIDE RECORDS SUMMARY | 2024-06-24 16:02 | XMS_ITS | Clinical Summary ---
Author Organization [facility] Address [address] [place] [address] Care Team Providers Care Yarder Name Role Phone Malick Mcgregor MD Unavailable [phone] Mikey Brumfield NP Primary Care Provider [phone] Allergies Active Allergy Reactions Criticality Noted Date [...] day 200 tablet 2 04/19/19 25 Active Eliquis 5 mg tablet Take 1 [...] year supply 100 tablet 3 05/01/19 25 026 Active clindamycin (CLEOCIN) 300 mg capsule TAKE 2 CAPSULES BY MOUTH 2 HOURS BEFORE APPT AND 2 CAPSULES BY MOUTH DAY AFTER APPT 04/25/19 25 Active lisinopriL (PRINIVIL,ZEST RIL) 20 mg tablet Take 1 tablet (20 mg total) by mouth daily 90 tablet 3 06/05/19 25 026 Active lisinopriL (PRINIVIL,ZEST RIL) 10 mg tablet Take 1 tablet (10 mg total) by mouth daily 100 tablet 2 02 025 Discontinued lisinopriL (PRINIVIL,ZEST RIL) 10 mg [...] artery disease of n ative artery of [place] heart with stable angina pectoris ([facility]) 08/28/2018 Overview (08/28/2018): Added automatically from request for surgery [id number] Assessment & Plan (12/08/2022 11:48 AM CDT): [...] (09/19/2017): Added automatically from request for surgery [id number] Encounter for postoperative care 11/03/2014 Overview (06/17/2016): Post surgical visit Bladder pain 05/27/2014 Resolved Problems Problem Noted Date Diagnosed Date Resolved Date Chest pain 01/06/2020 12/07/2022 Overview (01/06/2020): Added automatically from request for surgery [id number] Chest pain due to myocardial ischemia 08/31/2018 12/07/2022 Unstable angina pectoris ([facility]) 08/28/2018 09/29/2021 Overview (08/28/2018): Added automatically from request for surgery [id number] Acute chest pain 04/10/2018 09/29/2021 Acute coronary syndrome ([facility]/HCC) 04/10/2018 09/29/2021 Overview (04/10/2018): Added automatically from request for surgery [id number] Coronary artery disease invo [place]ving [place] coronary artery of [place] heart without angina pectoris 10/09/2017 09/29/2021 Overview (10/09/2017): Added automatically from request for surgery [id number] Angina pectoris, unstable ([facility]) 09/19/2017 09/29/2021 Overview (09/19/2017): Added automatically from request for surgery [id number] 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 ([facility]) 09/19/2017 09/29/2021 Overview (09/19/2017): Added automatically from request for surgery [id number] Encounters Date Type Department Care Team Description 06/11/2024 Telephone [facility] Cardiology [address] [place] [address] [address] [place] [address] Ellie Wesley MD Cath Rescheduling 06/04/2024 Telephone [facility] Cardiology [address] [place] [address] [address] [place] [address] Ellie Wesley MD [facility] Scheduling 06/04/2024 Results Follow-Up [facility] [address] [place] [address] [address] [place] [address] Ellie Wesley MD 05/27/2024 1:30 PM CDT Ancillary Procedure [facility] Cardiology [address] [place] [address] Coronary artery disease of [place] artery of [place] heart with stable angina pectoris ([facility]/HCC) ([facility]) 05/27/2024 Telephone [facility] Cardiology [address] [place] [address] Ellie Wesley MD 05/07/2024 10:30 AM WAREHOUSE SELECTOR Office Visit [facility] Card[facility] [place] [address] Ellie Wesley MD Coronary artery disease of [place] artery of [place] heart with stable angina pectoris (CMS/HCC) (HCC) [...] on file Legal Sex Male 11:39 PM WAREHOUSE SELECTOR Gender Identity Not on file Sexual Orientation Not on file Obstetrics History Last Filed Vital Signs Vital Sign Reading Time Taken Comments Blood Pressure 158/80 05/07/2024 11:27 AM WAREHOUSE SELECTOR Pulse 86 05/07/2024 11:27 AM WAREHOUSE SELECTOR Temperature 36.8 C (98.3 F) 08/29/2021 1:45 PM CDT Respiratory Rate 20 08/29/2021 1:45 PM CDT Oxygen Saturation 98% 05/07/2024 11:27 AM WAREHOUSE SELECTOR Inhaled Oxygen Concentration - - Weight 102 kg (224 lb 12.8 oz) 05/07/2024 11:27 AM WAREHOUSE SELECTOR Height 188 cm (6' 2 ) 05/07/2024 11:27 AM WAREHOUSE SELECTOR Body Mass Index 28.86 05/07/2024 11:27 AM WAREHOUSE SELECTOR Plan of Treatment Upcoming Encounters Date Type Department Care Team (Latest Contact Info) Description 07/04/2024 10:20 AM CDT Hospital Encounter [facility] [address] [id number] Ellie Wesley MD [address] [address] Nonrheumatic aortic valve stenosis 07/04/2024 10:20 AM CDT - 07/04/2024 11:55 AM CDT Surgery [facility] [address] [place] [address] Ellie Wesley MD [address] [id number] RIGHT LEFT HEART CATHETERIZATION WITH CORONARY ANGIOGRAPHY GRAFT AND WITH OR WITHOUT LEFT VENTRICULOGRAPHY [id number] Health Maintenance Due Date Last Done Comments [...] A1C 10/09/2018 04/11/2018 Covid-19 Vaccine (2 - 2023-2 5 season) 2023 05/21/2020 Influenza Vaccine (Season Ended) 2024 01/30/2020, 02/10/2009, 01/17/2008, Additional history exists Lipid Panel 05/07/2025 05/07/2024, 12/13, 08/30/2018, Additional history exists eGFR 06/10/2025 06/10/2024, 12/13, 09/01/2018, Additional history exists DTaP/Tdap/Td Vaccine (2 - Td or Tdap) 08/30/2031 08/29/2021, 02/13/2006 Medical Devices Implanted Type Area Planning Lead Device Identifier Shelf Expiration Date Model / Serial / Lot [employer] [id number] Synergy 3.5mm 38mm 144cm Radiopaque 1 Access Port Inflation Lumen - [id number] Implanted:Qty: 1 on 08/31/2018 by Maurice Olivares MD at [facility] Stent N/A: Coronary [employer] 06/24/2020 [id number] / / [id number] [employer] [id number] Synergy 3mm 38mm 144cm Radiopaque 1 Access Port Inflation Lumen - [id number] Implanted:Qty: 1 on 08/31/2018 by Maurice Olivares MD at [facility] Stent N/A: Coronary [employer]vin 06/04/2020 [id number] / / [id number] Description:TACHO to RCA [employer] [id number] Synergy 4mm 38mm 144cm Radiopaque 1 Access Port Inflation Lumen - [id number] Implanted:Qty: 1 on 08/31/2018 by Maurice Olivares MD at [facility] Stent N/A: Coronary [employer]vin 06/18/2020 [id number] / / [id number] Description:TACHO to RCA [employer] X [id number] Resolute Basil 3.5mm 2.1-2.7fr 18mm 140cm Rapid Exchange - [id number] Implanted:Qty: 1 on 10/06/2017 by Malick Mcgregor MD at [facility] [employer] X 05/13/2019 [id number] / / [id number] [employer] X [id number] Resolute Basil 2.25mm 2.1-2.7fr 12mm 140cm Rapid Exchange - [id number] Implanted:Qty: 1 on 10/30/2017 by Malick Mcgregor MD at [facility] [employer] X 12/10/2018 [id number] / / [id number] [employer]vin [id number] Synergy 4mm 20mm 144cm Radiopaque 1 Access Port Inflation Lumen - [id number] Implanted:Qty: 1 on 04/11/2018 by Malick Mcgregor MD at [facility] N/A: Coronary [employer]vin [id number] 10/25/2019 [id number] / / [id number] Description:SVG toRCA Procedures Procedure Name Priority Date/Time Associated Diagnosis Comments CBC WITH AUTO DIFFERENTIAL Routine 06/10/2024 12:00 PM CDT Nonrheumatic aortic valve stenosis BASIC METABOLIC PANEL Routine 06/10/2024 12:00 PM CDT Nonrheumatic aortic valve stenosis TRANSTHORACIC ECHO (TTE) COMPLETE W DOPPLER/CF WO CONTRAST Routine 05/27/2024 2:14 PM CDT Coronary artery disease of [place] artery of [place] heart with stable angina pectoris (CMS/HCC) (HCC) POCT LIPID PANEL Routine 05/07/2024 11:5 8 AM WAREHOUSE SELECTOR Hypercholesteremia HEMOGLOBIN A1C Routine 04/11/2018 5:27 AM WAREHOUSE SELECTOR from Last 3 Months or Most Recently Relevant to Health Maintenance Results * (ABNORMAL) CBC with auto differential (06/10/2024 12:00 PM CDT) [facility] WBC 5.6 3.4 - 10.8 x10E3/uL [facility] [...] 06/11/2024 7:09 AM CDT Performed at: - [address] [id number] Snipper: Harjeet Leung PhD, Phone: [phone] Ellie Wesley MD LAB BLOOD ORDERABLES Fin al Result Performing Organization Address [facility] Co de Phone Number LABTresata [facility] - * (ABNORMAL) Basic metabolic panel (06/10/2024 12:00 [...] - 06/11/2024 7:09 AM CDT Performed at: [facility] [address] [id number] Snipper: Harjeet Leung PhD, Phone: [phone] Ellie Wesley MD LAB BLOOD ORDERABLES Fin al Result Performing Organization Address [facility] Co de Phone Number LABCO [facility] - * TRANSTHORACIC ECHO (TTE) COMPLETE W DOPPLER/CF WO CONTRAST (05/27/2024 2:14 PM CDT) Pathologist [facility] LV EF 70-75 % CONS SCIMAGE Anatomical Region Laterality Modality Ultrasound 05/27/2024 1:47 PM CDT Narrative 05/28/2024 7:50 PM CDT ECHOCARDIOGRAM Patient Name: VENKATESH KAHN : 1945 Study Date: 05/27/2024 1:47:20 PM Gender: M Tech: [facility] Location: [facility] Ref Provider: ELLIE WESLEY Height(Cm): 188 BSA: 2.33 Weight(Kg): 104.33 BP: 131 / 65 Order Provider: ELLIE WESLEY - PROCEDURES: Echocardiographic Report: Transthoracic Echocardiogram with complete 2D, M-Mode, Spectral and Color Flow Doppler examination. INDICATIONS: I25.118 Atherosclerotic heart disease of [place] coronary artery with other forms of angina [...] regurgitation. Electronically Signed By: Kem Chapa MD [facility] 05/28/2024 7:49:59 PM CDT Procedure Note Kem Chapa MD - 05/28/2024 ECHOCARDIOGRAM Patient Name: VENKATESH KAHN : 1945 Study Date: 05/27/2024 1:47:20 PM Gender: M Tech: [facility] Location: [facility] Ref Provider: ELLIE WESLEY Height(Cm): 188 BSA: 2.33 Weight(Kg): 104.33 BP: 131 / 65 Order Provider: ELLIE WESLEY - PROCEDURES: Echocardiographic Report: Transthoracic Echocardiogram with complete 2D, M-Mode, Spectral and ColorFlow Doppler examination. INDICATIONS: I25.118 Atherosclerotic heart disease of [place] coronary artery with otherforms of angina pectoris. [...] aorticregurgitation. Electronically Signed By: Kem Chapa MD [facility] 05/28/2024 7:49:59 PM CDT Ellie Wesley MD CV ECHO PROCEDURES Final Result * (ABNORMAL) POCT lipid panel (05/07/2024 11:58 AM WAREHOUSE SELECTOR) HDL, POC 32 > - 40 mg/dL Triglycerides, POC 206(A) < - 150 mg/dL LDL Cholesterol POC 27 < - 100 mg/dL Cholesterol Total, POC <100 < - 200 mg/dL Capillary blood 05/07/2024 1 1:58 AM WAREHOUSE SELECTOR us Ellie Wesley MD POINT OF CARE TEST ORDER KELLY Final Result * (ABNORMAL) Hemoglobin A1c (04/11/2018 5:27 AM WAREHOUSE SELECTOR) Hgb A1C 7.8(H) 4.0 - 5.6 % [facility] Estimated Average Glucose 177 mg/dL [facility] Comment: The ADA recommends reporting an estimated Average Glucose (eAG) with all Hemoglobin A1c results using the equation derived from a study of 507 normal and diabetic adults. Minority populations were underrepresented and children were not included. (Diabetes Care 31:5008-2212, 2008). The eAG is not equivalent to a fasting glucose. Blood specimen (specimen) 04/11/2018 5:27 AM WAREHOUSE SELECTOR 04/11/2018 5:53 AM WAREHOUSE SELECTOR Narrative [facility] - 04/11/2018 6:10 AM WAREHOUSE SELECTOR Arley Garcia MD LAB BLOOD ORDERABLES Final Res ult [facility] [address] [place] [address] from Last 3 Months or Most Recently Relevant to Health Maintenance Insurance [facility] MEDICARE ADVANTAGE IDPA IDPA [facility] MEDICARE ADVANTAGE [facility] MEDICARE ADVANTAGE Advance Directives For more information, please contact: [phone] * Full Code (Latest Code Status on [...] 9:12 AM 10/07/2017 12:16 PM Care Teams Yarder Relationship Specialty Start Date End Date Mikey Brumfield NP [address] [place] [address] PCP - General Nurse Practitioner 06/20/24 Malick Mcgregor MD [address] [place] [address] Consulting Physician Cardiology 04/12/18
--- OUTSIDE RECORDS SUMMARY | 2024-06-24 16:02 | XMS_ITS | Referral Summary ---
Author Organization [facility] Address [address] [place] [address] Care Team Providers Care Plastic Process Technician Name Role Phone Malick Mcgregor MD Unavailable [phone] Mikey Brumfield NP Primary Care Provider Encounters Date Type Department Care Team Description 06/11/2024 Telephone [facility] Cardiology [facility] [address] [place] [address] Ellie Wesley MD Cath Rescheduling 06/04/2024 Telephone [facility] Cardiology [facility] [address] [place] [address] Ellie Wesley MD [facility] Scheduling 06/04/2024 Results Follow-Up [facility] Cardiology [address] [place] [address] [address] [address] Ellie Wesley MD 05/27/2024 Telephone [facility] Cardiology [address] [place] [address] [place] [address] Ellie Wesley MD 05/27/2024 1:30 PM CDT Ancillary Procedure [facility] Cardiology [address] [place] [address] [address] [place] [address] 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 (CMS/HCC) (HCC) 05/07/2024 10:30 AM FORKLIFT DRIVER Office Visit [facility] Cardiology [address] [facility] [address] [place] [address] Ellie Wesley MD 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 Active FENOFIBRIC ACID ORAL Take 135 mg by mouth daily. Active gabapentin (NEURONTIN) 600 mg tablet Take 1 tablet (600 mg total) by mouth every 6 (six) hours 08-22- Active metFORMIN (GLUCOPHAGE) 1,000 mg tablet Take [...] mouth daily 100 tablet 2 04/19/19 25 026 Active metoprolol tartrate (LOPRESSOR) 25 mg [...] artery disease of n ative artery of moapa heart with stable angina pectoris ([facility]) 08/28/2018 Overview (08/28/2018): Added automatically from request for surgery [id number] Assessment & Plan (12/08/2022 11:48 AM CDT): [...] (09/19/2017): Added automatically from request for surgery [id number] Encounter for postoperative care 11/03/2014 Overview (06/17/2016): Post surgical visit Bladder pain 05/27/2014 Resolved Problems Problem Noted Date Diagnosed Date Resolved Date Chest pain 01/06/2020 12/07/2022 Overview (01/06/2020): Added automatically from request for surgery [id number] Chest pain due to myocardial ischemia 08/31/2018 12/07/2022 Unstable angina pectoris (CMS/HCC) 08/28/2018 09/29/2021 Overview (08/28/2018): Added automatically from request for surgery [id number] Acute chest pain 04/10/2018 09/29/2021 Acute coronary syndrome (CMS/HCC) 04/10/2018 09/29/2021 Overview (04/10/2018): Added automatically from request for surgery [id number] Coronary artery disease invo lving moapa coronary artery of moapa heart without angina pectoris 10/09/2017 09/29/2021 Overview (10/09/2017): Added automatically from request for surgery [id number] Angina pectoris, unstable (CMS/HCC) 09/19/2017 09/29/2021 Overview (09/19/2017): Added automatically from request for surgery [id number] Coronary artery disease invo lving coronary bypass graft of moapa heart with unstable angina pectoris ([facility]) 09/19/2017 09/29/2021 Overview (09/19/2017): Added automatically from request for surgery [id number] Immunizations Immunization Administration Dates Next Due Influenza, [...] on file Legal Sex Male 11:39 PM FORKLIFT DRIVER Gender Identity Not on file Sexual Orientation Not on file Last Filed Vital Signs Vital Sign Reading Time Taken Comments Blood Pressure 158/80 05/07/2024 11:27 AM FORKLIFT DRIVER Pulse 86 05/07/2024 11:27 AM FORKLIFT DRIVER Temperature 36.8 C (98.3 F) 08/29/2021 1:45 PM CDT Respiratory Rate 20 08/29/2021 1:45 PM CDT Oxygen Saturation 98% 05/07/2024 11:27 AM FORKLIFT DRIVER Inhaled Oxygen Concentration - - Weight 102 kg (224 lb 12.8 oz) 05/07/2024 11:27 AM FORKLIFT DRIVER Height 188 cm (6' 2 ) 05/07/2024 11:27 AM FORKLIFT DRIVER Body Mass Index 28.86 05/07/2024 11:27 AM FORKLIFT DRIVER Plan of Treatment Upcoming Encounters Date Type Department Care Team (Latest Contact Info) Description 07/04/2024 10:20 AM CDT Hospital Encounter [facility] [place] [address] Ellie Wesley MD [address] [place] [address] Nonrheumatic aortic valve stenosis 07/04/2024 10:20 AM CDT - 07/04/2024 11:55 AM CDT Surgery [facility] [address] [place] [phone] Ellie Wesley MD [address] [place] [address] RIGHT LEFT HEART CATHETERIZATION WITH CORONARY ANGIOGRAPHY GRAFT AND WITH OR WITHOUT LEFT VENTRICULOGRAPHY [id number] Medical Devices Implanted Type Area It Analyst Device Identifier Shelf Expiration Date Model / Serial / Lot [employer] Elvin [id number] Synergy 3.5mm 38mm 144cm Radiopaque 1 Access Port Inflation Lumen - [id number] Implanted:Qty: 1 on 08/31/2018 by Maurice Olivares MD at [facility] Stent N/A: Coronary [employer] Elvin 06/24/2020 [id number] / / [id number] [employer] Elvin [id number] Synergy 3mm 38mm 144cm Radiopaque 1 Access Port Inflation Lumen - [id number] Implanted:Qty: 1 on 08/31/2018 by Maurice Olivares MD at [facility] Stent N/A: Coronary [employer] Elvin 06/04/2020 [id number] / / [id number] Description:TACHO to RCA [employer] Elvin [id number] Synergy 4mm 38mm 144cm Radiopaque 1 Access Port Inflation Lumen - [id number] Implanted:Qty: 1 on 08/31/2018 by Maurice Olivares MD at [facility] Stent N/A: Coronary [employer] Elvin 06/18/2020 [id number] / / [id number] Description:TACHO to RCA [employer] X [id number] Resolute Sawyer 3.5mm 2.1-2.7fr 18mm 140cm Rapid Exchange - [id number] Implanted:Qty: 1 on 10/06/2017 by Malick Mcgregor MD at [facility] [employer] X 05/13/2019 [id number] / / [id number] [employer] X [id number] Resolute Basil 2.25mm 2.1-2.7fr 12mm 140cm Rapid Exchange - [id number] Implanted:Qty: 1 on 10/30/2017 by Malick Mcgregor MD at [facility] [employer] X 12/10/2018 [id number] / / [id number] [employer]vin [id number] Synergy 4mm 20mm 144cm Radiopaque 1 Access Port Inflation Lumen - [id number] Implanted:Qty: 1 on 04/11/2018 by Malick Mcgregor MD at [facility] N/A: Coronary [employer] Elvin [id number] 10/25/2019 [id number] / / [id number] Description:SVG toRCA Procedures Procedure Name Priority Date/Time Associated Diagnosis Comments CBC WITH AUTO DIFFERENTIAL Routine 06/10/2024 12:00 PM CDT Nonrheumatic aortic valve stenosis BASIC METABOLIC PANEL Routine 06/10/2024 12:00 PM CDT Nonrheumatic aortic valve stenosis TRANSTHORACIC ECHO (TTE) COMPLETE W DOPPLER/CF WO CONTRAST Routine 05/27/2024 2:14 PM CDT 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 (CMS/HCC) (HCC) POCT LIPID PANEL Routine 05/07/2024 11:5 8 AM FORKLIFT DRIVER Hypercholesteremia HEMOGLOBIN A1C Routine 04/11/2018 5:27 AM FORKLIFT DRIVER from Last 3 Months or Most Recently [...] 7:09 AM CDT Performed at: - [facility] [address] [id number] Attendant Child Activity: Harjeet Leung PhD, Phone: [phone] us Ellie Wesley MD LAB BLOOD ORDERABLES Fin al Result [facility] - * (ABNORMAL) Basic metabolic panel (06/10/2024 12:00 PM CDT) Pathologist [facility] Glucose 140(H) 70 - 99 mg/dL [facility] [...] 06/11/2024 7:09 AM CDT Performed at: - [facility] [id number] Attendant Child Activity: Harjeet Leung PhD, Phone: [phone] Ellie Wesley MD LAB BLOOD ORDERABLES Fin al [facility] - 01 * TRANSTHORACIC ECHO (TTE) COMPLETE W DOPPLER/CF WO CONTRAST (05/27/2024 2:14 PM CDT) Pathologist [facility] LV EF 70-75 % CONS SCIMAGE Anatomical Region Laterality Modality Ultrasound 05/27/2024 1:47 PM CDT Narrative 05/28/2024 7:50 PM CDT ECHOCARDIOGRAM Patient Name: VENKATESH KAHN : 1945 Study Date: 05/27/2024 1:47:20 PM Gender: M Tech: [facility] Location: [facility] Ref Provider: ELLIE WESLEY Height(Cm): 188 BSA: 2.33 Weight(Kg): 104.33 BP: 131 / 65 Order Provider: ELLIE WESLEY - PROCEDURES: Echocardiographic Report: Transthoracic Echocardiogram with complete 2D, M-Mode, Spectral and Color Flow Doppler examination. INDICATIONS: I25.118 Atherosclerotic heart disease of moapa coronary artery with other forms of angina [...] regurgitation. Electronically Signed By: Kem Chapa MD [facility] 05/28/2024 7:49:59 PM CDT Procedure Note Kem Chapa MD - 05/28/2024 ECHOCARDIOGRAM Patient Name: VENKATESH KAHN : 1945 Study Date: 05/27/2024 1:47:20 PM Gender: M Tech: [facility] Location: [facility] Ref Provider: ELLIE WESLEY Height(Cm): 188 BSA: 2.33 Weight(Kg): 104.33 BP: 131 / 65 Order Provider: ELLIE WESLEY - PROCEDURES: Echocardiographic Report: Transthoracic Echocardiogram with complete 2D, M-Mode, Spectral and ColorFlow Doppler examination. INDICATIONS: I25.118 Atherosclerotic heart disease of moapa coronary artery with otherforms of angina pectoris. [...] ] MV E/A Ratio 0.7 TR Peak Eirc 2.3 m/s [ 1.0 - 2.8 ] [...] aorticregurgitation. Electronically Signed By: Kem Chapa MD [facility] 05/28/2024 7:49:59 PM CDT Elile Wesley MD CV ECHO PROCEDURES Final Result * (ABNORMAL) POCT lipid panel (05/07/2024 11:58 AM FORKLIFT DRIVER) HDL, POC 32 > - 40 mg/dL Triglycerides, POC 206(A) < - 150 mg/dL LDL Cholesterol POC 27 < - 100 mg/dL Cholesterol Total, POC <100 < - 200 mg/dL Capillary blood 05/07/2024 1 1:58 AM FORKLIFT DRIVER Ellie Wesley MD POINT OF CARE TEST ORDER KELLY Final Result * (ABNORMAL) Hemoglobin A1c (04/11/2018 5:27 AM FORKLIFT DRIVER) Hgb A1C 7.8(H) 4.0 - 5.6 % [facility] Estimated Average Glucose 177 mg/dL [facility] Comment: The ADA recommends reporting an estimated Average Glucose (eAG) with all Hemoglobin A1c results using the equation derived from a study of 507 normal and diabetic adults. Minority populations were underrepresented and children were not included. (Diabetes Care 31:0070-1095, 2008). The eAG is not equivalent to a fasting glucose. Blood specimen (specimen) 04/11/2018 5:27 AM FORKLIFT DRIVER 04/11/2018 5:53 AM FORKLIFT DRIVER Narrative [facility] - 04/11/2018 6:10 AM FORKLIFT DRIVER us Arley Garcia MD LAB BLOOD ORDERABLES Final Res ult [facility] [address] [place] [address] from Last 3 Months or Most Recently Relevant to Health Maintenance Insurance [facility] MED[facility] ADVANTAGE [facility] Address: [address] [address] [place] [address] IDPA IDPA [facility] MEDICARE ADVANTAGE [facility] Address: [address] [address] [place] [address] [facility] MEDIC[facility] ADVANTAGE Advance Directives For more information, please contact: [phone] * Full Code (Latest Code Status on [...] 9:12 AM 10/07/2017 12:16 PM Care Teams Plastic Process Technician Relationship Specialty Start Date End Date Mikey Brumfield NP [address] [facility] [address] [place] [address] PCP - General Nurse Practitioner 06/20/24 Malick Mcgregor MD [address] [place] [address] Consulting Physician Cardiology 04/12/18
--- OUTSIDE RECORDS SUMMARY | 2024-06-24 16:03 | XMS_ITS | Clinical Summary ---
Author Organization [facility] Address [address] [place] [address] Care Team Providers Care Sommelier Name Role Phone Isaiah Connor MD Primary Care Provider Whitley potter Source Comments [facility],non-owned Affiliates and Associated Physician Practices is amultiple site organization consisting of ambulatory clinics and hospital sitesin [place], [place], [place] and [place]. This disclosure is being madepursuant to the Care Everywhere program and may not contain all information available regarding this patient. Last updated 17.[facility] [place] Allergies Active Allergy Reactions Criticality Noted Date Comments Penicillins Rash Medium 06/28/2017 Medications * Be aware that medications may not be up to date on this document. Alwaysverify current medications with the patient. allopurinol (ZYLOPRIM) 300 MG tablet Take 1 tablet by mouth once daily 8 Active DIGOX 125 MCG tablet Take 1 tablet by mouth once daily 8 Active gabapentin (NEURONTIN) 600 MG tablet Take 1 tablet by mouth 4 times daily 8 Active glipiZIDE (GLUCOTROL) 5 MG tablet Take 1 tablet by mouth 2 times daily 8 Active lisinopril (PRINIVIL; ZESTRIL) 10 MG tablet Take 1 tablet by mouth once daily 8 Active metFORMIN (GLUCOPHAGE) 1000 MG tablet Take 1 tablet by mouth at bedtime 8 Active metoprolol tartrate (LOPRESSOR) 25 MG tablet Take 1 tablet by mouth once daily 8 Active ASPIRIN 81 PO Take 1 tablet by mouth once daily Active Calcium Carb-Cholecalc iferol (CALCIUM 600 + D PO) Take 1 [...] at Not on file Legal Sex Male 6:16 AM SHOWROOM EXECUTIVE DIRECTOR Gender Identity Not on file Sexual Orientation [...] 2023-2 5 season) 2023 DEPRESSION SCREENING 03/13/2024 INFLUENZA VACCINE (Season Ended) 2024 HEPATITIS B [...] on patient's age to complete this topic Insurance [facility] ADV Care Teams Sommelier Relationship Specialty Start Date End Date Isaiah Connor MD PCP - General 06/28/17
--- OUTSIDE RECORDS SUMMARY | 2024-06-24 16:03 | XMS_ITS | Continuity of Care Document ---
Author Name [facility] Organization [facility] Care Team Providers Care Auto Parts Salesperson Name Role Phone [facility] Unavailable Unavailable Problems Combined list of problems from [facility] facilities. It does not include entries that were removed or entered in error. 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 Active Condition [facility] Foot Sprain/Strain Active Condition [facility] Hypertension Active Condition [facility] Hypertriglyceridemia * (ICD-9-CM 272.1) Active Condition [facility] Intermittent Claudication * (ICD-9-CM 443.9) Active Condition [facility] Obesity * (ICD-9-CM 278.00) Active Condition [facility] Peripheral Neuropathy (ICD-9-CM 355.9) Active Condition [facility] Psoriasis * (ICD-9-CM 696.1) Active Condition [facility] Medications Combined list of outpatient medications from [facility] and [facility] facilities.Medications provided include 1) outpatient medications from the last 15 months, and 2) patient-reported medications. Medication Details Route Status Patient Instructions Prescription Expires Prescription Number Last Dispense Date Ordering Provider Order Date Order Qty Source ALLOPURINOL 100MG TAB TAKE ONE TABLET BY MOUTH ONCE A DAY ORAL ACTIVE LUCILLE ORTEGA 2009 [facility] Wilkins ASPIRIN 81MG TAB,EC TAKE ONE TABLET BY MOUTH QD ORAL ACTIVE LUCILLE ORTEGA 2008 [facility] Wilkins BETAMETHASO NE DIPROPIONAT E CREAM,TOP APPLY TO AFFECTED AREA(S) THREE TIMES A DAY TOP[place] L ACTIVE RITTER-DARIO [facility] 0.6MG TAB TAKE ONE TABLET BY MOUTH ONCE A DAY ORAL ACTIVE RITTER-DARIO LUCILLE BUENO 2009 [facility] DIGOXIN 0.25MG TAB TAKE ONE TABLET BY MOUTH ONCE A DAY ORAL ACTIVE RITTER-LUCILLE TANNER 2008 [facility] GABAPENTIN 400MG CAP TAKE 1 CAPSULE BY MOUTH THREE TIMES A DAY ORAL ACTIVE RITTER-DARIO LUCILLE BUENO 2009 [facility] GLIPIZIDE 5MG TAB TAKE ONE-HALF TABLET BY MOUTH TWO TIMES A DAY BEFORE MEALS ORAL ACTIVE RIYA-LUCILLE TANNER 2008 [facility] HYDROCHLORO THIAZIDE 25MG TAB TAKE ONE TABLET BY MOUTH EVERY MORNING ORAL ACTIVE RIYA-LUCILLE TANNER 2008 [facility] LISINOPRIL 40MG TAB TAKE ONE TABLET BY MOUTH ONCE A DAY ORAL ACTIVE RITTER-LUCILLE TANNER 2008 [facility] METFORMIN HCL 1000MG TAB TAKE ONE TABLET BY MOUTH AT BEDTIME ORAL ACTIVE RITTER-LUCILLE TANNER 2008 [facility] OMEGA-3-ACI D ETHYL ESTERS 1000MG CAP,ORAL TAKE 1 CAPSULE BY MOUTH TWICE A DAY ORAL ACTIVE RIYA-LUCILLE TANNER 2008 [facility] ROSUVASTATI N CA 10MG TAB TAKE ONE-HALF TABLET BY MOUTH EVERY EVENING ORAL ACTIVE RITTER-LUCILLE TANNER 2008 [facility] Allergies, Adverse Reactions, Alerts Combined list of allergies from Department of Defense and Veterans Affairs facilities. It does not include entries that were removed or entered in error. Substance Category Reaction Severity Reaction type Status Date Reported Comments Source NIASPAN Propensity to adverse reactions to drug (finding) Delirium, Flushing active 8 [facility] PENICILLIN Propensity to adverse reactions to drug (finding) Urticaria active 6 [facility] PRAVASTATIN Propensity to adverse reactions to drug (finding) Muscle pain MILD active 9 [facility] SIMVASTATIN Propensity to adverse reactions to drug (finding) Muscle pain, Muscle weakness active 7 [facility] Immunizations Combined list of available immunizations from the Department of [facility] facilities. Immunization Series Date Given Administered By Site Reaction Lot Number CVX Code Drug Soup Person Status Comments Source INFLUENZA, UNSPECIFIED FORMULATION 2008 88 complet ed [facility] INFLUENZA, UNSPECIFIED FORMULATION 2007 88 complet ed [facility] INFLUENZA, UNSPECIFIED FORMULATION 2006 88 complet ed [facility] PNEUMOCOCCAL, UNSPECIFIED FORMULATION 2006 109 complet ed [facility] TD(ADULT) UNSPECIFIED FORMULATION 2005 139 complet ed Left Deltoid [facility] INFLUENZA, UNSPECIFIED FORMULATION 2005 REY CARDOZA 88 comple t ed [facility] Encounters Combined list of: 1) Encounters from Department of Veterans Affairs facilities going backup to the last 18 months, not all [place] inpatient encounters are included; 2) Encounters from the Department [facility] facilities going backup to 280 months. Location Location Details Encounter Type Encounter Number Reason For Visit Attending Provider ADM Date DC Date Status Disposition Source [facility] Outpatient Encounter [id number] 05/29 [facility] Social History Combined list of available smoking, tobacco, and other social history from [facility] facilities. Social History Type Response Date Comment Sourc e Tobacco smoking status NHIS QUIT TOBACCO >7 YEARS AGO 02/13/2006 [facility]
--- OUTSIDE RECORDS SUMMARY | 2024-06-24 16:03 | XMS_ITS | Encounter Summary ---
Author Organization [facility] Healthcare Address [address] [place] [address] Care Team Providers Care Architectural Representative Name Role Phone Malick Mcgregor MD Unavailable [phone] Christiano Enamorado MD Primary Care Provider [phone] Mikey Brumfield NP Primary Care Provider [phone] Reason for Visit * Reason Onset Date Comments Test Results 06/04/2024 Encounter Details Date Type Department Care Team (Late st Contact Info) Description 06/04/2024 Results Follow-Up [facility] Cardiology [address] [place] [address] Emir Wesley MD [address] [address] [place] [address] Social History Tobacco Use Types Packs/Day Years Used Date Smoking Tobacco: Former Smokeless Tobacco: Never Comments:smoked only during service quit 1965 Alcohol Use Standard Drinks/Week Comments No 0 (1 standard drink = 0.6 oz pur e alcohol) Sex and Gender Information Value Date Recorded Sex Assigned at Not on file 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 Gender Identity Not on file Sexual Orientation [...] Description 07/04/2024 10:20 AM CDT Hospital Encounter [facility] [address] [phone] Emir Wesley MD [address] [id number] Nonrheumatic aortic valve stenosis 07/04/2024 10:20 AM CDT - 07/04/2024 11:55 AM CDT Surgery [facility] [address] [phone] Emir Wesley MD [address] [address] RIGHT LEFT HEART CATHETERIZATION WITH CORONARY ANGIOGRAPHY GRAFT AND WITH OR WITHOUT LEFT VENTRICULOGRAPHY [id number] documented as of this encounter Visit Diagnoses Not on filedocumented in this encounter Care Teams Architectural Representative Relationship Specialty Start Date End Date Christiano Enamorado MD [address] [address] PCP - General Family Medicine 11/30/21 06/19/24 Mikey Brumfield NP [address] [facility] [address] [place], [place] [id number] PCP - General Nurse Practitioner 06/20/24 Malick Mcgregor MD [address] [place] [address] Consulting Physician Cardiology 04/12/18 documented as of this encounter
--- OUTSIDE RECORDS SUMMARY | 2024-06-24 16:03 | XMS_ITS | Continuity of Care Document ---
Author Organization [facility] Address [address] [place] [address] [address] [place] [address] Phone Care Team Providers Care Electronic Prepress Operator Name Role Phone Donovan Baca Unavailable Unavailable Procedures Procedure Date Eye Exam & Treatment Refraction Eye Exam & Treatment Refraction Anti-reflective Coating Eye Exam & Treatment Refraction BF Plastic Sphcyl [place] To +/-4d .12-2d Tint Photochromatic, Plastic Anti-reflective Coating Tax - Medical Advance Directives Directive Yes / No Effective Date File Name No Information Encounters Encounter Description Practice Location Reason(s) For Visit Diagnoses Date Provider Providers Copied on Encounter [facility], [address] [place] [address] [address], [place], [place], [id number], tel:[phone] [facility] No Information 2-201 0 Keven Man. [address] , [address], [place], [address], [place]. tel:[phone] [facility], [address] [place] [address] [address], [place], [place], [id number], tel:[phone] [facility] No Information 0 5-200 9 Keven Man. [address] , [address], [place], [address], [place]. tel:[phone] [facility], [address], [place], [place], [address], [place] tel:[phone] [facility] No Information 7 [facility] . [address], [address], [place], [place], [address], [place]. tel:[phone] Consulting Provider: Veronica William, [address] [place] [address], [address]. tel:[phone] [facility], [address], [place], [place], [address], [place] tel:[phone] [facility] No Information 7 Doisy Edward. [facility] , [address], [place], [address], [place]. tel:[phone] [facility], [address], [place], [place], [address], [place] tel:[phone] [facility] No Information 7 [facility] . [address], [address], [place], [place], [address], [place]. tel:[phone] Referring Provider: Colt Rosa, [address], [place], [address]. tel:[phone] g Provider: Shira Cabello, [address] [place] [address], [address]. tel:[phone] Family History Family Member Type Diagnosis Age At Onset No Information Payers Payer name Insurance type Covered alliance party ID Authoriza tion(s) No Information Social History [...]
--- OUTSIDE RECORDS SUMMARY | 2024-06-24 16:04 | XMS_ITS | Continuity of Care Document ---
Author Organization [facility] Address [address] [place] [address] [address] [place] [address] Phone Care Team Providers Care Quill Collector Name Role Phone Donovan Baca Unavailable Unavailable Procedures Procedure Date Eye Exam & Treatment Refraction Eye Exam & Treatment Refraction Anti-reflective Coating Eye Exam & Treatment Refraction BF Plastic Sphcyl [place] To +/-4d .12-2d Tint Photochromatic, Plastic Anti-reflective Coating Tax - Medical Advance Directives Directive Yes / No Effective Date File Name No Information Encounters Encounter Description Practice Location Reason(s) For Visit Diagnoses Date Provider Providers Copied on Encounter [facility], [address] [place] [address] [address], [place], [place], [id number], tel:[phone] [facility] No Information 2-201 0 Keven Man. [address] , [address], [place], [address], [place]. tel:[phone] [facility], [address] [place] [address] [address], [place], [place], [address], tel:[phone] [facility] No Information 0 5-200 9 Keven Man. [address] , [address], [place], [address], [place]. tel:[phone] [facility], [address], [place], [place], [address], [place] tel:[phone] [facility] No Information 7 [facility] . [address] [facility], [address], [place], [place], [address], [place]. tel:[phone] Consulting Provider: Veronica William, [address] [place] [address], [address]. tel:[phone] [facility], [address], [place], [place], [address], [place] tel:[phone] [facility] No Information 7 Doisy Edward. [facility] , [address], [place], [address], [place]. tel:[phone] [facility], [address], [place], [place], [address], [place] tel:[phone] [facility] No Information 7 [facility] . [address] [facility], [address], [place], [place], [address], [place]. tel:[phone] Referring Provider: Colt Rosa, [address], [place], [address]. tel:[phone] g Provider: Shira Cabello, [address] [place] [address], [address]. tel:[phone] Family History Family Member Type Diagnosis Age At Onset No Information Payers Payer name Insurance type Covered democrat ID Authoriza tion(s) No Information Social History [...]
== END 2024-06-24 14:45 | disposition home or self-care (01) ==
PROVIDERS: Emergency Provider Nurse Practitioner Family; PCP Nurse Practitioner
DX: H66.001 Acute suppurative otitis media without spontaneous rupture of ear drum, right ear (principal); I10 Essential (primary) hypertension; Z87.891 Personal history of nicotine dependence; E53.8 Deficiency of other specified B group vitamins; M51.369 Other intervertebral disc degeneration, lumbar region without mention of lumbar back pain or lower extremity pain; D64.9 Anemia, unspecified; K21.9 Gastro-esophageal reflux disease without esophagitis; E78.5 Hyperlipidemia, unspecified; I48.91 Unspecified atrial fibrillation; M10.9 Gout, unspecified; G62.9 Polyneuropathy, unspecified; M19.90 Unspecified osteoarthritis, unspecified site; E11.9 Type 2 diabetes mellitus without complications; I25.10 Atherosclerotic heart disease of native coronary artery without angina pectoris
CPT/HCPCS: 99213; G0463

== ENCOUNTER 2024-06-25 13:29 | Emergency (ER) | payer MEDICARE, SELFPAY ==
[2024-06-25 13:36] VITALS: BP 131/106; PULSE 58; RESP 16; TEMP 36.4; O2SAT 96
--- NOTE | 2024-06-25 13:45 | ED_ITS ---
HPI - Dizziness General Chief Complaint: Ear Stated Complaint: Dizzy-Has Otitis Media Time Seen by Provider: 06/25/24 15:07 Focused HPI: 78-year-old male with history of CAD, type 2 diabetes, gout, AFib, hyperlipidemia presents to the emergency department for dizziness and hearing loss bilaterally for the past week. Patient reports muffled hearing out of both of his ears, right greater than left with ?static? sounds in his ears. Denies tinnitus. He endorses dizziness he describes as ?sea sickness? with associated nausea and vomiting. States his vertigo is worse with movement of his head better when he is sitting still. He went to urgent care and had his ears irrigated and was diagnosed with otitis media, started on Flonase and azithromycin. He has been taking these without improvement. Denies fever, head injury trauma, focal numbness or weakness. GENERAL: Well-appearing, well-nourished, and in no acute distress. HEAD: Normocephalic, atraumatic. CHEST: Clear to auscultation. ?No respiratory distress. HEART: Regular rate and rhythm.? NEURO: ?Alert and oriented x4. Decreased hearing bilaterally, otherwise cranial nerves intact. Strength 5/5 in BUE and BLE. Sensation intact throughout Patient screened in triage and initial orders placed.? ?Additional care and disposition to be based upon?diagnostic testing and treatment. Related Data Home Medications ?Medication ?Instructions ?Recorded ?Confirmed ?Last Taken ?Type calcium 500 mg (as 1 tablet PO DAILY 08/19/21 06/24/24 Unknown History carbonate)-vitamin D3 15 mcg (600 unit) tablet aspirin 81 mg tablet,delayed 81 mg PO DAILY 12/08/23 06/24/24 Unknown History release acetaminophen 325 mg tablet 325 mg PO QID PRN fever or pain 06/07/24 06/24/24 Unknown History lisinopril 20 mg tablet 20 mg PO DAILY 06/07/24 06/24/24 Unknown History lisinopril 10 mg tablet 10 mg PO DAILY 06/24/24 06/24/24 Unknown History Allergies Allergy/AdvReac Type Severity Reaction Status Date / Time Penicillins Allergy Severe Swelling Verified 06/24/24 14:22 [facility] Past Medical History Medical History Chronic thoracic spine pain MRI of the thoracic spine on 02/10/2023 reveals severe spondylosis. Lesion of skin of face Impacted cerumen, bilateral Hx of colonic polyp B12 deficiency Rib pain on left side Impacted cerumen of left ear Screening for diabetic retinopathy no diabetic retinopathy on 05/09/2022. Anterolisthesis of lumbar spine Degenerative disc disease, lumbar Retrolisthesis of vertebrae Low back pain with bilateral sciatica PSA elevation Anemia HLD (hyperlipidemia) Vitamin D deficiency Prostate cancer screening GERD (gastroesophageal reflux disease) Atrial fibrillation Gout Osteoarthritis of multiple joints Peripheral neuropathy Hypertension Diabetes type 2, controlled Encounter to establish care History of skin cancer Gallbladder disorder Diabetes CAD (coronary artery disease) Arthritis Surgical History Surgical History H/O heart bypass surgery Triple Bypass- 2014 H/O heart artery stent 2017, 2018 Hx of total knee replacement right knee- 2011 left knee-2011 Hx of cataract surgery Hx of cholecystectomy H/O knee surgery left knee-1999 H/O elbow surgery right elbow-1996 left elbow-2013 H/O hand surgery Bilateral 1996 H/O toe surgery 1987 Family History Family History Father Cancer Mother Heart disease Social History Social History Social History: Venkatesh is somewhat confident filling out medical forms. In the last 12 months he has received assistance from an organization or program with paying for medications, paying utility bills, and paying for food. Smoking status: Former smoker Alcohol intake: never Substance use: never Lack of Transportation: No Lack of Food: Never True Current Housing: I Have Housing Concerned About Future Housing: No Difficulty Paying Gas/Electric Bills: YES Difficulty Paying for Meds: No Currently Unemployed: No Education: Trade/Vocational Certificate Difficulty w/ Childcare or Family Care: No Living arrangements: alone Gender identity (if verbalized by the patient): Male Course Vital Signs Vital signs: Vital Signs Temperature 97.6 F 06/25/24 13:36 Pulse Rate 58 L 06/25/24 13:36 Respiratory Rate 16 06/25/24 13:36 Blood Pressure 131/106 H 06/25/24 13:36 Pulse Oximetry 96 06/25/24 13:36 Temperature 97.6 F 06/25/24 13:36 Pulse Rate 58 L 06/25/24 13:36 Respiratory Rate 16 06/25/24 13:36 Blood Pressure 131/106 H 06/25/24 13:36 Pulse Oximetry 96 06/25/24 13:36 Discharge Plan Discharge Clinical Impression: Vertigo Patient Disposition: Elopement After Seen by Prov Patient Language: Mozambican Prescriptions: No Action fluticasone propionate [Flonase Allergy Relief] 50 mcg/actuation s pray,suspension 1 spray intranasal DAILY Qty: 16 0RF Rx Instructions: administer into each nostril lisinopril 10 mg tablet 10 mg PO DAILY cefdinir 300 mg capsule 300 mg PO Q12H 7 Days Qty: 14 0RF calcium carbonate-vitamin D3 500 mg-15 mcg (600 unit) tablet 1 tablet PO DAILY aspirin 81 mg tablet,delayed release (DR/EC) 81 mg PO DAILY acetaminophen 325 mg tablet 325 mg PO QID PRN (Reason: fever or pain) (DME) Dexcom G7 Sensor Device See Rx Instructions .Route Qty: 9 3RF Rx Instructions: Change every 10 days nitroglycerin 0.4 mg tablet, sublingual 0.4 mg sublingual Q5M PRN (Reason: chest pain) Qty: 30 1RF Rx Instructions: do not exceed 3 doses per episode lisinopril 20 mg tablet 20 mg PO DAILY metoprolol tartrate 25 mg tablet 25 mg PO BID Qty: 180 3RF rosuvastatin 20 mg tablet 20 mg PO DAILY Qty: 90 3RF diltiazem HCl 30 mg tablet 30 mg PO BID Qty: 180 3RF amiodarone 200 mg tablet 200 mg PO 3XW Qty: 36 3RF Eliquis 5 mg tablet 5 mg PO BID Qty: 180 3RF pantoprazole 40 mg tablet,delayed release (DR/EC) 40 mg PO QAM Qty: 90 3RF (DME) Dexcom G7 Anesthesiologists' Assistant Misc See Rx Instructions .Route Qty: 1 0RF Rx Instructions: As directed isosorbide mononitrate 30 mg tablet extended release 24 hr 30 mg PO BID Qty: 180 3RF glipizide 5 mg tablet 5 mg PO BID Qty: 180 3RF allopurinol 300 mg tablet See Rx Instructions .ROUTE .COMPLEX Qty: 100 2RF Dose Instruction: TAKE 1 TABLET BY MOUTH DAILY Rx Instructions: TAKE 1 TABLET BY MOUTH DAILY (DME) Accu-Chek Daisy Plus test strp Strip See Rx Instructions .ROUTE .COMPLEX Qty: 100 2RF Dose Instruction: TEST ONCE DAILY Rx Instructions: TEST ONCE DAILY fenofibric acid (choline) 135 mg capsule,delayed release(DR/EC) 135 mg PO DAILY Qty: 90 3RF Follow-up/Referrals: Mikey Brumfield APRN [Primary Care Provider] -
--- OUTSIDE RECORDS SUMMARY | 2024-06-25 14:29 | XMS_ITS | Encounter Summary ---
Author Organization [facility] Healthcare Address [address] [place] [address] Care Team Providers Care Biotechnologist Name Role Phone Malick Mcgregor MD Unavailable [phone] Christiano Enamorado MD Primary Care Provider [phone] Mikey Brumfield NP Primary Care Provider [phone] Reason for Visit * Reason Onset Date Comments Test Results 06/04/2024 Encounter Details Date Type Department Care Team (Late st Contact Info) Description 06/04/2024 Results Follow-Up [facility] Medical Group Cardiology [address] [place] [address] Emir Wesley MD [address] [facility] [address] [place] [address] Social History Tobacco Use Types Packs/Day Years Used Date Smoking Tobacco: Former Smokeless Tobacco: Never Comments:smoked only during service quit 1965 Alcohol Use Standard Drinks/Week Comments No 0 (1 standard drink = 0.6 oz pur e alcohol) Sex and Gender Information Value Date Recorded Sex Assigned at Not on file 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 Gender Identity Not on file Sexual Orientation [...] 07/04/2024 10:20 AM CDT Hospital Encounter [facility] [address] [phone] Emir Wesley MD [address] [id number] Nonrheumatic aortic valve stenosis 07/04/2024 10:20 AM CDT - 07/04/2024 11:55 AM CDT Surgery [facility] [address] [phone] Emir Wesley MD [address] [address] RIGHT LEFT HEART CATHETERIZATION WITH CORONARY ANGIOGRAPHY GRAFT AND WITH OR WITHOUT LEFT VENTRICULOGRAPHY [id number] documented as of this encounter Visit Diagnoses Not on filedocumented in this encounter Care Teams Biotechnologist Relationship Specialty Start Date End Date Christiano Enamorado MD [address] [address] PCP - General Family Medicine 11/30/21 06/19/24 Mikey Brumfield NP [address] [facility] [address] [place], [place] [id number] PCP - General Nurse Practitioner 06/20/24 Malick Mcgregor MD [address] [place] [address] Consulting Physician Cardiology 04/12/18 documented as of this encounter
--- OUTSIDE RECORDS SUMMARY | 2024-06-25 14:29 | XMS_ITS | Clinical Summary ---
Author Organization 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 ([facility] 08/28/2018 Overview (08/28/2018): Added automatically from request for surgery [id number] Assessment & Plan (12/08/2022 11:48 AM CDT): [...] (09/19/2017): Added automatically from request for surgery [id number] Encounter for postoperative care 11/03/2014 Overview (06/17/2016): Post surgical visit Bladder pain 05/27/2014 Resolved Problems Problem Noted Date Diagnosed Date Resolved Date Chest pain 01/06/2020 12/07/2022 Overview (01/06/2020): Added automatically from request for surgery [id number] Chest pain due to myocardial ischemia 08/31/2018 12/07/2022 Unstable angina pectoris ([facility]) 08/28/2018 09/29/2021 Overview (08/28/2018): Added automatically from request for surgery [id number] Acute chest pain 04/10/2018 09/29/2021 Acute coronary syndrome ([facility]/HCC) 04/10/2018 09/29/2021 Overview (04/10/2018): Added automatically from request for surgery [id number] 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 10/09/2017 09/29/2021 Overview (10/09/2017): Added automatically from request for surgery [id number] Angina pectoris, unstable ([facility] 09/19/2017 09/29/2021 Overview (09/19/2017): Added automatically from request for surgery [id number] 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 ([facility]) 09/19/2017 09/29/2021 Overview (09/19/2017): Added automatically from request for surgery [id number] Encounters Date Type Department Care Team Description 06/11/2024 Telephone [facility] [address] [place] [address] [address] [place] [address] Ellie Wesley MD Cath Rescheduling 06/04/2024 Telephone [facility] [address] [place] [address] [address] [place] [address] Ellie Wesley MD [facility] Scheduling 06/04/2024 Results Follow-Up [facility] [address] [place] [address] [address] [place] [address] Ellie Wesley MD 05/27/2024 1:30 PM CDT Ancillary Procedure [facility] [address] [place] [address] 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 ([facility]/HCC) ([facility]) 05/27/2024 Telephone [facility] [address] [place] [address] Ellie Wesley MD 05/07/2024 10:30 AM APPLICATION DBA Office Visit [facility] [place] [address] Ellie Wesley MD 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 (CMS/HCC) (HCC) [...] on file Legal Sex Male 11:39 PM APPLICATION DBA Gender Identity Not on file Sexual Orientation Not on file Obstetrics History Last Filed Vital Signs Vital Sign Reading Time Taken Comments Blood Pressure 158/80 05/07/2024 11:27 AM APPLICATION DBA Pulse 86 05/07/2024 11:27 AM APPLICATION DBA Temperature 36.8 C (98.3 F) 08/29/2021 1:45 PM CDT Respiratory Rate 20 08/29/2021 1:45 PM CDT Oxygen Saturation 98% 05/07/2024 11:27 AM APPLICATION DBA Inhaled Oxygen Concentration - - Weight 102 kg (224 lb 12.8 oz) 05/07/2024 11:27 AM APPLICATION DBA Height 188 cm (6' 2 ) 05/07/2024 11:27 AM APPLICATION DBA Body Mass Index 28.86 05/07/2024 11:27 AM APPLICATION DBA Plan of Treatment Upcoming Encounters Date Type Department Care Team (Latest Contact Info) Description 07/04/2024 10:20 AM CDT Hospital Encounter [facility] [address] [id number] Ellie Wesley MD [address] [address] Nonrheumatic aortic valve stenosis 07/04/2024 10:20 AM CDT - 07/04/2024 11:55 AM CDT Surgery [facility] [address] [place] [phone] Ellie Wesley MD [address] [id number] RIGHT LEFT HEART CATHETERIZATION WITH CORONARY ANGIOGRAPHY GRAFT AND WITH OR WITHOUT LEFT VENTRICULOGRAPHY [id number] Health Maintenance Due Date Last Done Comments [...] 08/29/2021, 02/13/2006 Medical Devices Implanted Type Area Showplace Manager Device Identifier Shelf Expiration Date Model / Serial / Lot [employer] [id number] Synergy 3.5mm 38mm 144cm Radiopaque 1 Access Port Inflation Lumen - [id number] Implanted:Qty: 1 on 08/31/2018 by Maurice Olivares MD at [facility] Stent N/A: Coronary [employer] 06/24/2020 [id number] / / [id number] [employer] [id number] Synergy 3mm 38mm 144cm Radiopaque 1 Access Port Inflation Lumen - [id number] Implanted:Qty: 1 on 08/31/2018 by Maurice Olivares MD at [facility] Stent N/A: Coronary [employer]vin 06/04/2020 [id number] / / [id number] Description:TACHO to RCA [employer] [id number] Synergy 4mm 38mm 144cm Radiopaque 1 Access Port Inflation Lumen - [id number] Implanted:Qty: 1 on 08/31/2018 by Maurice Olivares MD at [facility] Stent N/A: Coronary [employer] Elvin 06/18/2020 [id number] / / [id number] Description:TACHO to RCA [employer] X [id number] Resolute Basil 3.5mm 2.1-2.7fr 18mm 140cm Rapid Exchange - [id number] Implanted:Qty: 1 on 10/06/2017 by Malick Mcgregor MD at [facility] [employer] X 05/13/2019 [id number] / / [id number] [employer] X [id number] Resolute Basil 2.25mm 2.1-2.7fr 12mm 140cm Rapid Exchange - [id number] Implanted:Qty: 1 on 10/30/2017 by Malick Mcgregor MD at [facility] [employer] X 12/10/2018 [id number] / / [id number] [employer] [id number] Synergy 4mm 20mm 144cm Radiopaque 1 Access Port Inflation Lumen - [id number] Implanted:Qty: 1 on 04/11/2018 by Malick Mcgregor MD at [facility] N/A: Coronary [employer] Elvin [id number] 10/25/2019 [id number] / / [id number] Description:SVG toRCA Procedures Procedure Name Priority Date/Time Associated Diagnosis Comments CBC WITH AUTO DIFFERENTIAL Routine 06/10/2024 12:00 PM CDT Nonrheumatic aortic valve stenosis BASIC METABOLIC PANEL Routine 06/10/2024 12:00 PM CDT Nonrheumatic aortic valve stenosis TRANSTHORACIC ECHO (TTE) COMPLETE W DOPPLER/CF WO CONTRAST Routine 05/27/2024 2:14 PM CDT 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 (CMS/HCC) (HCC) POCT LIPID PANEL Routine 05/07/2024 11:5 8 AM APPLICATION DBA Hypercholesteremia HEMOGLOBIN A1C Routine 04/11/2018 5:27 AM APPLICATION DBA from Last 3 Months or Most Recently Relevant to Health Maintenance Results * (ABNORMAL) CBC with auto differential (06/10/2024 12:00 PM CDT) [facility] WBC 5.6 3.4 - 10.8 x10E3/uL [facility] [...] 06/11/2024 7:09 AM CDT Performed at: - [address] [id number] Assistant Administrator: Harjeet Leung PhD, Phone: [phone] Ellie Wesley MD LAB BLOOD ORDERABLES Fin al Result Performing Organization Address [facility] [address]/[facility] Co de Phone Number [facility] - * (ABNORMAL) Basic metabolic panel [...] - 06/11/2024 7:09 AM CDT Performed at: [facility] [address] [id number] Assistant Administrator: Harjeet Leung PhD, Phone: [phone] Ellie Wesley MD LAB BLOOD ORDERABLES Fin al Result Performing Organization Address [facility] [address]/[facility] Co de Phone Number [facility] - * TRANSTHORACIC ECHO (TTE) COMPLETE W DOPPLER/CF WO CONTRAST (05/27/2024 2:14 PM CDT) Pathologist [facility] LV EF 70-75 % CONS SCIMAGE Anatomical Region Laterality Modality Ultrasound 05/27/2024 1:47 PM CDT Narrative 05/28/2024 7:50 PM CDT ECHOCARDIOGRAM Patient Name: VENKATESH KAHN : 1945 Study Date: 05/27/2024 1:47:20 PM Gender: M Tech: [facility] Location: [facility] Ref Provider: ELLIE WESLEY Height(Cm): 188 BSA: 2.33 Weight(Kg): 104.33 BP: 131 / 65 Order Provider: ELLIE WESLEY - PROCEDURES: Echocardiographic Report: Transthoracic Echocardiogram with complete 2D, M-Mode, Spectral and Color Flow Doppler examination. INDICATIONS: I25.118 Atherosclerotic heart disease of pamunkey coronary artery with other forms of angina [...] regurgitation. Electronically Signed By: Kem Chapa MD [facility] 05/28/2024 7:49:59 PM CDT Procedure Note Kem Chapa MD - 05/28/2024 ECHOCARDIOGRAM Patient Name: VENKATESH KAHN : 1945 Study Date: 05/27/2024 1:47:20 PM Gender: M Tech: [facility] Location: [facility] Ref Provider: ELLIE WESLEY Height(Cm): 188 BSA: 2.33 Weight(Kg): 104.33 BP: 131 / 65 Order Provider: ELLIE WESLEY - PROCEDURES: Echocardiographic Report: Transthoracic Echocardiogram with complete 2D, M-Mode, Spectral and ColorFlow Doppler examination. INDICATIONS: I25.118 Atherosclerotic heart disease of pamunkey coronary artery with otherforms of angina pectoris. [...] aorticregurgitation. Electronically Signed By: Kem Chapa MD [facility] 05/28/2024 7:49:59 PM CDT Ellie Wesley MD CV ECHO PROCEDURES Final Result * (ABNORMAL) POCT lipid panel (05/07/2024 11:58 AM APPLICATION DBA) HDL, POC 32 > - 40 mg/dL Triglycerides, POC 206(A) < - 150 mg/dL LDL Cholesterol POC 27 < - 100 mg/dL Cholesterol Total, POC <100 < - 200 mg/dL Capillary blood 05/07/2024 1 1:58 AM APPLICATION DBA us Ellie Wesley MD POINT OF CARE TEST ORDER KELLY Final Result * (ABNORMAL) Hemoglobin A1c (04/11/2018 5:27 AM APPLICATION DBA) Hgb A1C 7.8(H) 4.0 - 5.6 % [facility] Estimated Average Glucose 177 mg/dL [facility] Comment: The ADA recommends reporting an estimated Average Glucose (eAG) with all Hemoglobin A1c results using the equation derived from a study of 507 normal and diabetic adults. Minority populations were underrepresented and children were not included. (Diabetes Care 31:8390-8717, 2008). The eAG is not equivalent to a fasting glucose. Blood specimen (specimen) 04/11/2018 5:27 AM APPLICATION DBA 04/11/2018 5:53 AM APPLICATION DBA Narrative [facility] - 04/11/2018 6:10 AM APPLICATION DBA Arley Garcia MD LAB BLOOD ORDERABLES Final Res ult [facility] [address] Department [place] [address] from Last 3 Months or Most Recently Relevant to Health Maintenance Insurance [facility] MEDICARE ADVANTAGE IDPA IDPA [facility] MEDICARE ADVANTAGE [facility] MEDICARE ADVANTAGE Advance Directives For more information, please contact: [phone] * Full Code (Latest Code Status on [...] 9:12 AM 10/07/2017 12:16 PM Care Teams Embroidery Machine Operator Relationship Specialty Start Date End Date Mikey Brumfield NP [address] [place] [address] PCP - General Nurse Practitioner 06/20/24 Malick Mcgregor MD [address] [place] [address] Consulting Physician Cardiology 04/12/18
--- OUTSIDE RECORDS SUMMARY | 2024-06-25 14:29 | XMS_ITS | Continuity of Care Document ---
Author Name [facility] Organization [facility] Care Team Providers Care Refrigeration Systems Installer Name Role Phone [facility] Unavailable Unavailable Problems Combined list of problems from [facility] and [facility] facilities. It does not include entries that were removed or entered in error. 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 [facility] Foot Sprain/Strain Active Condition [facility] Hypertension Active Condition [facility] Hypertriglyceridemia * (ICD-9-CM 272.1) Active Condition [facility] Intermittent Claudication * (ICD-9-CM 443.9) Active Condition [facility] Obesity * (ICD-9-CM 278.00) Active Condition [facility] Peripheral Neuropathy (ICD-9-CM 355.9) Active Condition [facility] Psoriasis * (ICD-9-CM 696.1) Active Condition [facility] Medications Combined list of outpatient medications from [facility] and [facility] facilities.Medications provided include 1) outpatient medications from the last 15 months, and 2) patient-reported medications. Medication Details Route Status Patient Instructions Prescription Expires Prescription Number Last Dispense Date Ordering Provider Order Date Order Qty Source ALLOPURINOL 100MG TAB TAKE ONE TABLET BY MOUTH ONCE A DAY ORAL ACTIVE LUCILLE ORTEGA 2009 [facility] MAXIMO Wilkins ASPIRIN 81MG TAB,EC TAKE ONE TABLET BY MOUTH QD ORAL ACTIVE LUCILLE ORTEGA 2008 [facility] MAXIMO Wilkins BETAMETHASO NE DIPROPIONAT E CREAM,TOP APPLY TO AFFECTED AREA(S) THREE TIMES A DAY [place] L ACTIVE RITTER-DARIO [facility]LE BUENO [facility] COLCHICINE 0.6MG TAB TAKE ONE TABLET BY MOUTH ONCE A DAY ORAL ACTIVE RITTER-DARIO LUCILLE BUENO 2009 [facility] DIGOXIN 0.25MG TAB TAKE ONE TABLET BY MOUTH ONCE A DAY ORAL ACTIVE RITTER-LUCILLE TANNER 2008 [facility] GABAPENTIN 400MG CAP TAKE 1 CAPSULE BY MOUTH THREE TIMES A DAY ORAL ACTIVE RITTER-DARIO LUCILLE BUENO 2009 [facility] GLIPIZIDE 5MG TAB TAKE ONE-HALF TABLET BY MOUTH TWO TIMES A DAY BEFORE MEALS ORAL ACTIVE RIYA-LUCILLE TANNER 2008 [facility] HYDROCHLORO THIAZIDE 25MG TAB TAKE ONE TABLET BY MOUTH EVERY MORNING ORAL ACTIVE RIYA-LUCILLE TANNER 2008 [facility] LISINOPRIL 40MG TAB TAKE ONE TABLET BY MOUTH ONCE A DAY ORAL ACTIVE RITTER-LUCILLE TANNER 2008 [facility] METFORMIN HCL 1000MG TAB TAKE ONE TABLET BY MOUTH AT BEDTIME ORAL ACTIVE RITTER-LUCILLE TANNER 2008 [facility] OMEGA-3-ACI D ETHYL ESTERS 1000MG CAP,ORAL TAKE 1 CAPSULE BY MOUTH TWICE A DAY ORAL ACTIVE RIYA-LUCILLE TANNER 2008 [facility] ROSUVASTATI N CA 10MG TAB TAKE ONE-HALF TABLET BY MOUTH EVERY EVENING ORAL ACTIVE RITTER-LUCILLE TANNER 2008 [facility] Allergies, Adverse Reactions, Alerts Combined list of allergies from Department of Defense and Veterans Affairs facilities. It does not include entries that were removed or entered in error. Substance Category Reaction Severity Reaction type Status Date Reported Comments Source NIASPAN Propensity to adverse reactions to drug (finding) Delirium, Flushing active 8 [facility] PENICILLIN Propensity to adverse reactions to drug (finding) Urticaria active 6 [facility] PRAVASTATIN Propensity to adverse reactions to drug (finding) Muscle pain MILD active 9 [facility] SIMVASTATIN Propensity to adverse reactions to drug (finding) Muscle pain, Muscle weakness active 7 [facility] Immunizations Combined list of available immunizations from the Department of [facility] and [facility] facilities. Immunization Series Date Given Administered By Site Reaction Lot Number CVX Code Drug Train Station Server Status Comments Source INFLUENZA, UNSPECIFIED FORMULATION 2008 88 complet ed [facility] INFLUENZA, UNSPECIFIED FORMULATION 2007 88 complet ed [facility] INFLUENZA, UNSPECIFIED FORMULATION 2006 88 complet ed [facility] PNEUMOCOCCAL, UNSPECIFIED FORMULATION 2006 109 complet ed [facility] TD(ADULT) UNSPECIFIED FORMULATION 2005 139 complet ed Left Deltoid [facility] INFLUENZA, UNSPECIFIED FORMULATION 2005 REY CARDOZA 88 comple t ed [facility] Encounters Combined list of: 1) Encounters from Department of Veterans Affairs facilities going backup to the last 18 months, not all [place] inpatient encounters are included; 2) Encounters from the Department [facility] facilities going backup to 280 months. Location Location Details Encounter Type Encounter Number Reason For Visit Attending Provider ADM Date DC Date Status Disposition Source [facility] Outpatient Encounter [id number] 05/29 [facility] Social History Combined list of available smoking, tobacco, and other social history from Department of [facility] and [facility] facilities. Social History Type Response Date Comment Sourc e Tobacco smoking status NHIS QUIT TOBACCO >7 YEARS AGO 02/13/2006 [facility]
--- OUTSIDE RECORDS SUMMARY | 2024-06-25 14:29 | XMS_ITS | Referral Summary ---
Author Organization [facility] Address [address] [place] [address] Care Team Providers Care Motorboat Mechanic Helper Name Role Phone Malick Mcgregor MD Unavailable Mikey Brumfield NP Primary Care Provider [phone] Encounters Date Type Department Care Team Description 06/11/2024 Telephone [facility] Cardiology [facility] [facility] [address] [place] [address] Ellie Wesley MD Cath Rescheduling 06/04/2024 Telephone [facility] Cardiology [facility] [address] [place] [address] Ellie Wesley MD [facility] Scheduling 06/04/2024 Results Follow-Up [facility] Cardiology [address] [place] [address] [address], [place] [address] Ellie Wesley MD 05/27/2024 Telephone [facility] Cardiology [address] [place] [address] [place] [address] Ellie Wesley MD 05/27/2024 1:30 PM CDT Ancillary Procedure [facility] Cardiology [address] [place] [address] [address] [place] [address] 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) 08/28/2018 Overview (08/28/2018): Added automatically from request for surgery [id number] Assessment & Plan (12/08/2022 11:48 AM CDT): [...] (09/19/2017): Added automatically from request for surgery [id number] Encounter for postoperative care 11/03/2014 Overview (06/17/2016): Post surgical visit Bladder pain 05/27/2014 Resolved Problems Problem Noted Date Diagnosed Date Resolved Date Chest pain 01/06/2020 12/07/2022 Overview (01/06/2020): Added automatically from request for surgery [id number] Chest pain due to myocardial ischemia 08/31/2018 12/07/2022 Unstable angina pectoris (CMS/HCC) 08/28/2018 09/29/2021 Overview (08/28/2018): Added automatically from request for surgery [id number] Acute chest pain 04/10/2018 09/29/2021 Acute coronary syndrome (CMS/HCC) 04/10/2018 09/29/2021 Overview (04/10/2018): Added automatically from request for surgery [id number] Coronary artery disease invo lving paimiut coronary artery of paimiut heart without angina pectoris 10/09/2017 09/29/2021 Overview (10/09/2017): Added automatically from request for surgery [id number] Angina pectoris, unstable (CMS/HCC) 09/19/2017 09/29/2021 Overview (09/19/2017): Added automatically from request for surgery [id number] 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) 09/19/2017 09/29/2021 Overview (09/19/2017): Added automatically from request for surgery [id number] Immunizations Immunization Administration Dates Next Due Influenza, [...] on file Legal Sex Male 11:39 PM FARM CROPS TEACHER Gender Identity Not on file Sexual Orientation Not on file Last Filed Vital Signs Vital Sign Reading Time Taken Comments Blood Pressure 158/80 05/07/2024 11:27 AM FARM CROPS TEACHER Pulse 86 05/07/2024 11:27 AM FARM CROPS TEACHER Temperature 36.8 C (98.3 F) 08/29/2021 1:45 PM CDT Respiratory Rate 20 08/29/2021 1:45 PM CDT Oxygen Saturation 98% 05/07/2024 11:27 AM FARM CROPS TEACHER Inhaled Oxygen Concentration - - Weight 102 kg (224 lb 12.8 oz) 05/07/2024 11:27 AM FARM CROPS TEACHER Height 188 cm (6' 2 ) 05/07/2024 11:27 AM FARM CROPS TEACHER Body Mass Index 28.86 05/07/2024 11:27 AM FARM CROPS TEACHER Plan of Treatment Upcoming Encounters Date Type Department Care Team (Latest Contact Info) Description 07/04/2024 10:20 AM CDT Hospital Encounter [facility] [place] [address] Ellie Wesley MD [address] [place] [address] Nonrheumatic aortic valve stenosis 07/04/2024 10:20 AM CDT - 07/04/2024 11:55 AM CDT Surgery [facility] [address] [place] [phone] Ellie Wesley MD [address] [place] [address] RIGHT LEFT HEART CATHETERIZATION WITH CORONARY ANGIOGRAPHY GRAFT AND WITH OR WITHOUT LEFT VENTRICULOGRAPHY 14599 Medical Devices Implanted Type Area Packing Supervisor Device Identifier Shelf Expiration Date Model / Serial / Lot [employer] [id number] Synergy 3.5mm 38mm 144cm Radiopaque 1 Access Port Inflation Lumen - [id number] Implanted:Qty: 1 on 08/31/2018 by Maurice Olivares MD at [facility] Stent N/A: Coronary [employer] 06/24/2020 [id number] / / [id number] [employer] [id number] Synergy 3mm 38mm 144cm Radiopaque 1 Access Port Inflation Lumen - [id number] Implanted:Qty: 1 on 08/31/2018 by Maurice Olivares MD at [facility] Stent N/A: Coronary [employer] 06/04/2020 [id number] / / [id number] Description:TACHO to RCA [employer] [id number] Synergy 4mm 38mm 144cm Radiopaque 1 Access Port Inflation Lumen - [id number] Implanted:Qty: 1 on 08/31/2018 by Maurice Olivares MD at [facility] Stent N/A: Coronary [employer] 06/18/2020 [id number] / / [id number] Description:TACHO to RCA [employer] X [id number] Resolute Milroy 3.5mm 2.1-2.7fr 18mm 140cm Rapid Exchange - [id number] Implanted:Qty: 1 on 10/06/2017 by Malick Mcgregor MD at [facility] [employer] X 05/13/2019 [id number] / / [id number] [employer] X [id number] Resolute Basil 2.25mm 2.1-2.7fr 12mm 140cm Rapid Exchange - [id number] Implanted:Qty: 1 on 10/30/2017 by Malikc Mcgregor MD at [facility] [employer] X 12/10/2018 [id number] / / [id number] [employer] [id number] Synergy 4mm 20mm 144cm Radiopaque 1 Access Port Inflation Lumen - [id number] Implanted:Qty: 1 on 04/11/2018 by Malick Mcgregor MD at [facility] N/A: Coronary [employer] [id number] 10/25/2019 [id number] / / [id number] Description:SVG toRCA Procedures Procedure Name Priority Date/Time Associated Diagnosis Comments CBC WITH AUTO DIFFERENTIAL Routine 06/10/2024 12:00 PM CDT Nonrheumatic aortic valve stenosis BASIC METABOLIC PANEL Routine 06/10/2024 12:00 PM CDT Nonrheumatic aortic valve stenosis TRANSTHORACIC ECHO (TTE) COMPLETE W DOPPLER/CF WO CONTRAST Routine 05/27/2024 2:14 PM CDT 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) (HCC) POCT LIPID PANEL Routine 05/07/2024 11:5 8 AM FARM CROPS TEACHER Hypercholesteremia HEMOGLOBIN A1C Routine 04/11/2018 5:27 AM FARM CROPS TEACHER from Last 3 Months or Most Recently [...] 7:09 AM CDT Performed at: - [facility] [address] [id number] Steel Floor Pan Placing Supervisor: Harjeet Leung PhD, Phone: [phone] us Ellie Wesley MD LAB BLOOD ORDERABLES Fin al Result [facility] - * (ABNORMAL) Basic metabolic panel (06/10/2024 12:00 PM CDT) Pathologist [facility] Glucose 140(H) 70 - 99 mg/dL [facility] [...] 06/11/2024 7:09 AM CDT Performed at: - [facility] [id number] Steel Floor Pan Placing Supervisor: Harjeet Leung PhD, Phone: [phone] Ellie Wesley MD LAB BLOOD ORDERABLES Fin al Result [facility] - 01 * TRANSTHORACIC ECHO (TTE) COMPLETE W DOPPLER/CF WO CONTRAST (05/27/2024 2:14 PM CDT) Pathologist [facility] LV EF 70-75 % CONS SCIMAGE Anatomical Region Laterality Modality Ultrasound 05/27/2024 1:47 PM CDT Narrative 05/28/2024 7:50 PM CDT ECHOCARDIOGRAM Patient Name: VENKATESH KAHN : 1945 Study Date: 05/27/2024 1:47:20 PM Gender: M Tech: [facility] Location: [facility] Ref Provider: ELLIE WESLEY Height(Cm): 188 BSA: 2.33 Weight(Kg): 104.33 BP: 131 / 65 Order Provider: ELLIE WESLEY - PROCEDURES: Echocardiographic Report: Transthoracic Echocardiogram with complete 2D, M-Mode, Spectral and Color Flow Doppler examination. INDICATIONS: I25.118 Atherosclerotic heart disease of paimiut coronary artery with other forms of angina [...] regurgitation. Electronically Signed By: Kem Chapa MD [facility] 05/28/2024 7:49:59 PM CDT Procedure Note Kem Chapa MD - 05/28/2024 ECHOCARDIOGRAM Patient Name: VENKATESH KAHN : 1945 Study Date: 05/27/2024 1:47:20 PM Gender: M Tech: [facility] Location: [facility] Ref Provider: ELLIE WESLEY Height(Cm): 188 BSA: 2.33 Weight(Kg): 104.33 BP: 131 / 65 Order Provider: ELLIE WESLEY - PROCEDURES: Echocardiographic Report: Transthoracic Echocardiogram with complete 2D, M-Mode, Spectral and ColorFlow Doppler examination. INDICATIONS: I25.118 Atherosclerotic heart disease of paimiut coronary artery with otherforms of angina pectoris. [...] aorticregurgitation. Electronically Signed By: Kem Chapa MD [facility] 05/28/2024 7:49:59 PM CDT Ellie Wesley MD CV ECHO PROCEDURES Final Result * (ABNORMAL) POCT lipid panel (05/07/2024 11:58 AM FARM CROPS TEACHER) HDL, POC 32 > - 40 mg/dL Triglycerides, POC 206(A) < - 150 mg/dL LDL Cholesterol POC 27 < - 100 mg/dL Cholesterol Total, POC <100 < - 200 mg/dL Capillary blood 05/07/2024 1 1:58 AM FARM CROPS TEACHER Ellie Wesley MD POINT OF CARE TEST ORDER KELLY Final Result * (ABNORMAL) Hemoglobin A1c (04/11/2018 5:27 AM FARM CROPS TEACHER) Hgb A1C 7.8(H) 4.0 - 5.6 % [facility] Estimated Average Glucose 177 mg/dL [facility] Comment: The ADA recommends reporting an estimated Average Glucose (eAG) with all Hemoglobin A1c results using the equation derived from a study of 507 normal and diabetic adults. Minority populations were underrepresented and children were not included. (Diabetes Care 31:5687-7661, 2008). The eAG is not equivalent to a fasting glucose. Blood specimen (specimen) 04/11/2018 5:27 AM FARM CROPS TEACHER 04/11/2018 5:53 AM FARM CROPS TEACHER Narrative [facility] - 04/11/2018 6:10 AM FARM CROPS TEACHER us Arley Garcia MD LAB BLOOD ORDERABLES Final Res ult [facility] [address] Department [place] [address] from Last 3 Months or Most Recently Relevant to Health Maintenance Insurance [facility] MEDICARE ADVANTAGE IDPA IDPA [facility] MEDICARE ADVANTAGE [facility] MEDICARE ADVANTAGE Advance Directives For more information, please contact: [phone] * Full Code (Latest Code Status on [...] 9:12 AM 10/07/2017 12:16 PM Care Teams Motorboat Mechanic Helper Relationship Specialty Start Date End Date Mikey Brumfield NP [address] [facility] [address] [place] [address] PCP - General Nurse Practitioner 06/20/24 Malick Mcgregor MD [address] [place] [address] Consulting Physician Cardiology 04/12/18
--- OUTSIDE RECORDS SUMMARY | 2024-06-25 14:29 | XMS_ITS | Clinical Summary ---
Author Organization [facility] Address [address] [place] [address] Care Team Providers Care Cigar Making Machine Supervisor Name Role Phone Isaiah Connor MD Primary Care Provider Whitely potter Source Comments [facility],non-owned Affiliates and Associated Physician Practices is amultiple site organization consisting of ambulatory clinics and hospital sitesin [place], [place], [place] and [place]. This disclosure is being madepursuant to the Care Everywhere program and may not contain all information available regarding this patient. Last updated 17.[facility] Allergies Active Allergy Reactions Criticality Noted Date [...] on file Legal Sex Male 6:16 AM NET MAKER Gender Identity Not on file Sexual Orientation [...] patient's age to complete this topic Insurance [facility] MANAGED MEDICARE ADV Care Teams Cigar Making Machine Supervisor Relationship Specialty Start Date End Date Isaiah Connor MD PCP - General 06/28/17
--- OUTSIDE RECORDS SUMMARY | 2024-06-25 14:29 | XMS_ITS | Continuity of Care Document ---
Author Organization [facility] Address [address] [place] [address] [address] [place] [address] Phone Care Team Providers Care Twisting Machine Operator Name Role Phone Donovan Baca Unavailable Unavailable Procedures Procedure Date Eye Exam & Treatment Refraction Eye Exam & Treatment Refraction Anti-reflective Coating Eye Exam & Treatment Refraction BF Plastic Sphcyl [place] To +/-4d .12-2d Tint Photochromatic, Plastic Anti-reflective Coating Tax - Medical Advance Directives Directive Yes / No Effective Date File Name No Information Encounters Encounter Description Practice Location Reason(s) For Visit Diagnoses Date Provider Providers Copied on Encounter [facility], [address] [place] [address] [address], [place], [place], [id number], tel:[phone] [facility] No Information 2-201 0 Keven Man. [address], [place], [address], [place]. tel:[phone] [facility], [address] [place] [address] [address], [place], [place], [id number], tel:[phone] [facility] No Information 0 5-200 9 Keven Man. [address] , [address], [place], [address], [place]. tel:[phone] [facility], [address], [place], [place], [id number], [place] tel:[phone] [facility] No Information [address] [employer] [facility] . [address], [place], [place], [address], [place]. tel:[phone] Consulting Provider: Veronica William, [address] [place] [address], [address]. tel:[phone] [facility], [address], [place], [place], [id number], [place] tel:[phone] [facility] No Information 7 Doisy Edward. [facility] [facility] , [address], [place], [address], [place]. tel:[phone] [facility] Eye [facility], [address], [place], [place], [id number], [place] tel:[phone] [facility] No Information 7 [facility] . [address], [address], [place], [place], [address], [place]. tel:[phone] Referring Provider: Colt Rosa, [address], [place], [address]. tel:[phone] g Provider: Shira Cabello, [address] [place] [address], [address]. tel:[phone] Family History Family Member Type Diagnosis Age [...]
--- OUTSIDE RECORDS SUMMARY | 2024-06-25 14:29 | XMS_ITS | Continuity of Care Document ---
Author Organization [facility] Address [address] [place] [address] Phone Care Team Providers Care Security Sergeant Name Role Phone Mikey Ellis MD Unavailable [...] Diagnoses Date Provider Providers Copied on Encounter [employer] [facility], [address], [place], [place], [id number], tel:[phone] [facility] No Information Caleb Jensen. [address], [place], [place], [address], [place]. tel:[phone] Referring Provider: Aubrey Davenport DO, [address], [place], [address]. tel:[phone] [facility], [address], [place], [place], [address], tel:[phone] [facility] No Information Jeff Buckley. [address], [place], [place], [id number], [place]. tel:[phone] Referring Provider: Aubrey Davenport DO, [address], [place], [address]. tel:[phone] Family History Family Member Type Diagnosis Age At Onset No Information Payers Payer name Insurance type Covered republican ID Authoriza tibravo(s) [facility] MDCR COMPLETE HMO MB [id number] Social History Type Description Quantity Date Captured [...]
--- OUTSIDE RECORDS SUMMARY | 2024-06-25 15:29 | XMS_ITS | Referral Summary ---
Author Organization [facility] Address [address] [place] [address] Care Team Providers Care Index Clerk Name Role Phone Malick Mcgregor MD Unavailable [phone] Mikey Brumfield NP Primary Care Provider Encounters Date Type Department Care Team Description 06/11/2024 Telephone [facility] Cardiology [facility] [address] [place] [address] Ellie Wesley MD Cath Rescheduling 06/04/2024 Telephone [facility] Cardiology [facility] [address] [place] [address] Ellie Wesley MD [facility] Scheduling 06/04/2024 Results Follow-Up [facility] Cardiology [address] [place] [address] [address], [place] [address] Ellie Wesley MD 05/27/2024 Telephone [facility] Cardiology [address] [place] [address] [place] [address] Ellie Wesley MD 05/27/2024 1:30 PM CDT Ancillary Procedure [facility] Cardiology [address] [place] [address] [address] [place] [address] 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 (CMS/HCC) (HCC) 05/07/2024 10:30 AM ENVIRONMENTAL HEALTH SANITARIAN Office Visit [facility] Cardiology [address] [facility] [address] [place] [address] Ellie Wesley MD 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 (CMS/HCC) (HCC) [...] artery disease of n ative artery of hughes heart with stable angina pectoris ([facility]) 08/28/2018 Overview (08/28/2018): Added automatically from request for surgery [id number] Assessment & Plan (12/08/2022 11:48 AM CDT): [...] (09/19/2017): Added automatically from request for surgery [id number] Encounter for postoperative care 11/03/2014 Overview (06/17/2016): Post surgical visit Bladder pain 05/27/2014 Resolved Problems Problem Noted Date Diagnosed Date Resolved Date Chest pain 01/06/2020 12/07/2022 Overview (01/06/2020): Added automatically from request for surgery [id number] Chest pain due to myocardial ischemia 08/31/2018 12/07/2022 Unstable angina pectoris (CMS/HCC) 08/28/2018 09/29/2021 Overview (08/28/2018): Added automatically from request for surgery [id number] Acute chest pain 04/10/2018 09/29/2021 Acute coronary syndrome (CMS/HCC) 04/10/2018 09/29/2021 Overview (04/10/2018): Added automatically from request for surgery [id number] Coronary artery disease invo lving hughes coronary artery of hughes heart without angina pectoris 10/09/2017 09/29/2021 Overview (10/09/2017): Added automatically from request for surgery [id number] Angina pectoris, unstable (CMS/HCC) 09/19/2017 09/29/2021 Overview (09/19/2017): Added automatically from request for surgery [id number] Coronary artery 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 ([facility]) 09/19/2017 09/29/2021 Overview (09/19/2017): Added automatically from request for surgery [id number] Immunizations Immunization Administration Dates Next Due Influenza, [...] on file Legal Sex Male 11:39 PM ENVIRONMENTAL HEALTH SANITARIAN Gender Identity Not on file Sexual Orientation Not on file Last Filed Vital Signs Vital Sign Reading Time Taken Comments Blood Pressure 158/80 05/07/2024 11:27 AM ENVIRONMENTAL HEALTH SANITARIAN Pulse 86 05/07/2024 11:27 AM ENVIRONMENTAL HEALTH SANITARIAN Temperature 36.8 C (98.3 F) 08/29/2021 1:45 PM CDT Respiratory Rate 20 08/29/2021 1:45 PM CDT Oxygen Saturation 98% 05/07/2024 11:27 AM ENVIRONMENTAL HEALTH SANITARIAN Inhaled Oxygen Concentration - - Weight 102 kg (224 lb 12.8 oz) 05/07/2024 11:27 AM ENVIRONMENTAL HEALTH SANITARIAN Height 188 cm (6' 2 ) 05/07/2024 11:27 AM ENVIRONMENTAL HEALTH SANITARIAN Body Mass Index 28.86 05/07/2024 11:27 AM ENVIRONMENTAL HEALTH SANITARIAN Plan of Treatment Upcoming Encounters Date Type Department Care Team (Latest Contact Info) Description 07/04/2024 10:20 AM CDT Hospital Encounter [facility] [place] [address] Ellie Wesley MD [address] [place] [address] Nonrheumatic aortic valve stenosis 07/04/2024 10:20 AM CDT - 07/04/2024 11:55 AM CDT Surgery [facility] [address] [place] [phone] Ellie Wesley MD [address] [place] [address] RIGHT LEFT HEART CATHETERIZATION WITH CORONARY ANGIOGRAPHY GRAFT AND WITH OR WITHOUT LEFT VENTRICULOGRAPHY [id number] Medical Devices Implanted Type Area Marketing Co Op Device Identifier Shelf Expiration Date Model / Serial / Lot [employer] [id number] Synergy 3.5mm 38mm 144cm Radiopaque 1 Access Port Inflation Lumen - [id number] Implanted:Qty: 1 on 08/31/2018 by Maurice Olivares MD at [facility] Stent N/A: Coronary [employer] 06/24/2020 [id number] / / [id number] [employer] [id number] Synergy 3mm 38mm 144cm Radiopaque 1 Access Port Inflation Lumen - [id number] Implanted:Qty: 1 on 08/31/2018 by Maurice Olivares MD at [facility] Stent N/A: Coronary [employer] 06/04/2020 [id number] / / [id number] Description:TACHO to RCA [employer] [id number] Synergy 4mm 38mm 144cm Radiopaque 1 Access Port Inflation Lumen - [id number] Implanted:Qty: 1 on 08/31/2018 by Maurice Olivares MD at [facility] Stent N/A: Coronary [employer]vin 06/18/2020 [id number] / / [id number] Description:TACHO to RCA [employer] X [id number] Resolute Sulphur 3.5mm 2.1-2.7fr 18mm 140cm Rapid Exchange - [id number] Implanted:Qty: 1 on 10/06/2017 by Malick Mcgregor MD at [facility] [employer] X 05/13/2019 [id number] / / [id number] [employer] X [id number] Resolute Basil 2.25mm 2.1-2.7fr 12mm 140cm Rapid Exchange - [id number] Implanted:Qty: 1 on 10/30/2017 by Malick Mcgregor MD at [facility] [employer] X 12/10/2018 [id number] / / [id number] [employer] [id number] Synergy 4mm 20mm 144cm Radiopaque 1 Access Port Inflation Lumen - [id number] Implanted:Qty: 1 on 04/11/2018 by Malick Mcgregor MD at [facility] N/A: Coronary [employer]vin [id number] 10/25/2019 [id number] / / [id number] Description:SVG toRCA Procedures Procedure Name Priority Date/Time Associated Diagnosis Comments CBC WITH AUTO DIFFERENTIAL Routine 06/10/2024 12:00 PM CDT Nonrheumatic aortic valve stenosis BASIC METABOLIC PANEL Routine 06/10/2024 12:00 PM CDT Nonrheumatic aortic valve stenosis TRANSTHORACIC ECHO (TTE) COMPLETE W DOPPLER/CF WO CONTRAST Routine 05/27/2024 2:14 PM CDT 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 (CMS/HCC) (HCC) POCT LIPID PANEL Routine 05/07/2024 11:5 8 AM ENVIRONMENTAL HEALTH SANITARIAN Hypercholesteremia HEMOGLOBIN A1C Routine 04/11/2018 5:27 AM ENVIRONMENTAL HEALTH SANITARIAN from Last 3 Months or Most Recently [...] 7:09 AM CDT Performed at: - [facility] [address] [id number] Airframe Technician: Harjeet Leung PhD, Phone: [phone] us Ellie Wesley MD LAB BLOOD ORDERABLES Fin al Result [facility] - * (ABNORMAL) Basic metabolic panel (06/10/2024 12:00 PM CDT) Pathologist [facility] Glucose 140(H) 70 - 99 mg/dL [facility] [...] 06/11/2024 7:09 AM CDT Performed at: - [facility] [id number] Airframe Technician: Harjeet Leung PhD, Phone: [phone] Ellie Wesley MD LAB BLOOD ORDERABLES Fin al [facility] - 01 * TRANSTHORACIC ECHO (TTE) COMPLETE W DOPPLER/CF WO CONTRAST (05/27/2024 2:14 PM CDT) Pathologist [facility] LV EF 70-75 % CONS SCIMAGE Anatomical Region Laterality Modality Ultrasound 05/27/2024 1:47 PM CDT Narrative 05/28/2024 7:50 PM CDT ECHOCARDIOGRAM Patient Name: VENKATESH KAHN : 1945 Study Date: 05/27/2024 1:47:20 PM Gender: M Tech: [facility] Location: [facility] Ref Provider: ELLIE WESLEY Height(Cm): 188 BSA: 2.33 Weight(Kg): 104.33 BP: 131 / 65 Order Provider: ELLIE WESLEY - PROCEDURES: Echocardiographic Report: Transthoracic Echocardiogram with complete 2D, M-Mode, Spectral and Color Flow Doppler examination. INDICATIONS: I25.118 Atherosclerotic heart disease of hughes coronary artery with other forms of angina [...] regurgitation. Electronically Signed By: Kem Chapa MD [facility] 05/28/2024 7:49:59 PM CDT Procedure Note Kem Chapa MD - 05/28/2024 ECHOCARDIOGRAM Patient Name: VENKATESH KAHN : 1945 Study Date: 05/27/2024 1:47:20 PM Gender: M Tech: [facility] Location: [facility] Ref Provider: ELLIE WESLEY Height(Cm): 188 BSA: 2.33 Weight(Kg): 104.33 BP: 131 / 65 Order Provider: ELLIE WESLEY - PROCEDURES: Echocardiographic Report: Transthoracic Echocardiogram with complete 2D, M-Mode, Spectral and ColorFlow Doppler examination. INDICATIONS: I25.118 Atherosclerotic heart disease of hughes coronary artery with otherforms of angina pectoris. [...] aorticregurgitation. Electronically Signed By: Kem Chapa MD [facility] 05/28/2024 7:49:59 PM CDT Ellie Wesley MD CV ECHO PROCEDURES Final Result * (ABNORMAL) POCT lipid panel (05/07/2024 11:58 AM ENVIRONMENTAL HEALTH SANITARIAN) HDL, POC 32 > - 40 mg/dL Triglycerides, POC 206(A) < - 150 mg/dL LDL Cholesterol POC 27 < - 100 mg/dL Cholesterol Total, POC <100 < - 200 mg/dL Capillary blood 05/07/2024 1 1:58 AM ENVIRONMENTAL HEALTH SANITARIAN Ellie Wesley MD POINT OF CARE TEST ORDER KELLY Final Result * (ABNORMAL) Hemoglobin A1c (04/11/2018 5:27 AM ENVIRONMENTAL HEALTH SANITARIAN) Hgb A1C 7.8(H) 4.0 - 5.6 % [facility] Estimated Average Glucose 177 mg/dL [facility] Comment: The ADA recommends reporting an estimated Average Glucose (eAG) with all Hemoglobin A1c results using the equation derived from a study of 507 normal and diabetic adults. Minority populations were underrepresented and children were not included. (Diabetes Care 31:9058-9144, 2008). The eAG is not equivalent to a fasting glucose. Blood specimen (specimen) 04/11/2018 5:27 AM ENVIRONMENTAL HEALTH SANITARIAN 04/11/2018 5:53 AM ENVIRONMENTAL HEALTH SANITARIAN Narrative [facility] - 04/11/2018 6:10 AM ENVIRONMENTAL HEALTH SANITARIAN us Arley Garcia MD LAB BLOOD ORDERABLES Final Res ult [facility] [address] [place] [address] from Last 3 Months or Most Recently Relevant to Health Maintenance Insurance [facility] MEDICARE ADVANTAGE IDPA IDPA [facility] MEDICARE ADVANTAGE [facility] MEDICARE ADVANTAGE Advance Directives For more information, please contact: [phone] * Full Code (Latest Code Status on [...] 9:12 AM 10/07/2017 12:16 PM Care Teams Index Clerk Relationship Specialty Start Date End Date Mikey Brumfield NP [address] [facility] [address] [place] [address] PCP - General Nurse Practitioner 06/20/24 Malick Mcgregor MD [address] [place] [address] Consulting Physician Cardiology 04/12/18
--- OUTSIDE RECORDS SUMMARY | 2024-06-25 15:29 | XMS_ITS | Encounter Summary ---
Author Organization [facility] Healthcare Address [address] [place] [address] Care Team Providers Care Regrinder Name Role Phone Malick Mcgregor MD Unavailable [phone] Christiano Enamorado MD Primary Care Provider [phone] Mikey Brumfield NP Primary Care Provider [phone] Reason for Visit * Reason Onset Date Comments Test Results 06/04/2024 Encounter Details Date Type Department Care Team (Late st Contact Info) Description 06/04/2024 Results Follow-Up [facility] Medical Group Cardiology [address] 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 Gender Identity Not on file Sexual [...] 07/04/2024 10:20 AM CDT Hospital Encounter [facility] Heart [address] [phone] Emir Wesley MD [address] [id number] Nonrheumatic aortic valve stenosis 07/04/2024 10:20 AM CDT - 07/04/2024 11:55 AM CDT Surgery [facility] Heart [address] [phone] Emri Wesley MD [address] [address] RIGHT LEFT HEART CATHETERIZATION WITH CORONARY ANGIOGRAPHY GRAFT AND WITH OR WITHOUT LEFT VENTRICULOGRAPHY [address]38[address] documented as of this encounter Visit Diagnoses Not on filedocumented in this encounter Care Teams Regrinder Relationship Specialty Start Date End Date Christiano Enamorado MD [address] [address] PCP - General Family Medicine 11/30/21 06/19/24 Mikey Brumfield NP [address] [facility] [address] [place], [place] [id number] PCP - General Nurse Practitioner 06/20/24 Malick Mcgregor MD [address] [place] [address] Consulting Physician Cardiology 04/12/18 documented as of this encounter
--- OUTSIDE RECORDS SUMMARY | 2024-06-25 15:29 | XMS_ITS | Continuity of Care Document ---
Author Name [facility] Organization [facility] Care Team Providers Care Sand Mill Grinder Name Role Phone [facility] Unavailable Unavailable Problems Combined list of problems from [facility] and [facility] facilities. It does not include entries that were removed or entered in error. 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 Active Condition [facility] Foot Sprain/Strain Active Condition [facility] Hypertension Active Condition [facility] Hypertriglyceridemia * (ICD-9-CM 272.1) Active Condition [facility] Intermittent Claudication * (ICD-9-CM 443.9) Active Condition [facility] Obesity * (ICD-9-CM 278.00) Active Condition [facility] Peripheral Neuropathy (ICD-9-CM 355.9) Active Condition [facility] Psoriasis * (ICD-9-CM 696.1) Active Condition [facility] Medications Combined list of outpatient medications from [facility] and [facility] facilities.Medications provided include 1) outpatient medications from the last 15 months, and 2) patient-reported medications. Medication Details Route Status Patient Instructions Prescription Expires Prescription Number Last Dispense Date Ordering Provider Order Date Order Qty Source ALLOPURINOL 100MG TAB TAKE ONE TABLET BY MOUTH ONCE A DAY ORAL ACTIVE LUCILLE ORTEGA 2009 [facility] MAXIMO Wilkins ASPIRIN 81MG TAB,EC TAKE ONE TABLET BY MOUTH QD ORAL ACTIVE LUCILLE ORTEGA 2008 [facility] MAXIMO Wilkins BETAMETHASO NE DIPROPIONAT E CREAM,TOP APPLY TO AFFECTED AREA(S) THREE TIMES A DAY [place] L ACTIVE [facility]TER[facility] COLCHIC[facility] 0.6MG TAB TAKE ONE TABLET BY MOUTH ONCE A DAY ORAL ACTIVE RITTER-DARIO LUCILLE BUENO 2009 [facility] DIGOXIN 0.25MG TAB TAKE ONE TABLET BY MOUTH ONCE A DAY ORAL ACTIVE RITTER-LUCILLE TANNER 2008 [facility] N GABAPENTIN 400MG CAP TAKE 1 CAPSULE BY MOUTH THREE TIMES A DAY ORAL ACTIVE RITTER-DARIO LUCILLE BUENO 2009 [facility] N GLIPIZIDE 5MG TAB TAKE ONE-HALF TABLET BY MOUTH TWO TIMES A DAY BEFORE MEALS ORAL ACTIVE RIYA-LUCILLE TANNER 2008 [facility] N HYDROCHLORO THIAZIDE 25MG TAB TAKE ONE TABLET BY MOUTH EVERY MORNING ORAL ACTIVE RIYA-LUCILLE TANNER 2008 [facility] DIV[facility] N LISINOPRIL 40MG TAB TAKE ONE TABLET BY MOUTH ONCE A DAY ORAL ACTIVE RITTER-LUCILLE TANNER 2008 [facility] DIV[facility] N METFORMIN HCL 1000MG TAB TAKE ONE TABLET BY MOUTH AT BEDTIME ORAL ACTIVE RITTER-LUCILLE TANNER 2008 [facility] DIV[facility] N OMEGA-3-ACI D ETHYL ESTERS 1000MG CAP,ORAL TAKE 1 CAPSULE BY MOUTH TWICE A DAY ORAL ACTIVE RIYA-LUCILLE TANNER 2008 [facility] DIVISIO N ROSUVASTATI N CA 10MG TAB TAKE ONE-HALF TABLET BY MOUTH EVERY EVENING ORAL ACTIVE RITTER-LUCILLE TANNER 2008 [facility] N Allergies, Adverse Reactions, Alerts Combined list of allergies from Department of Defense and Veterans Affairs facilities. It does not include entries that were removed or entered in error. Substance Category Reaction Severity Reaction type Status Date Reported Comments Source NIASPAN Propensity to adverse reactions to drug (finding) Delirium, Flushing active 8 [facility] PENICILLIN Propensity to adverse reactions to drug (finding) Urticaria active 6 [facility] PRAVASTATIN Propensity to adverse reactions to drug (finding) Muscle pain MILD active 9 [facility] SIMVASTATIN Propensity to adverse reactions to drug (finding) Muscle pain, Muscle weakness active 7 [facility] Immunizations Combined list of available immunizations from the Department of [facility] and [facility] facilities. Immunization Series Date Given Administered By Site Reaction Lot Number CVX Code Drug Warehouse Distribution Manager Status Comments Source INFLUENZA, UNSPECIFIED FORMULATION 2008 88 complet ed [facility] INFLUENZA, UNSPECIFIED FORMULATION 2007 88 complet ed [facility] INFLUENZA, UNSPECIFIED FORMULATION 2006 88 complet ed [facility] PNEUMOCOCCAL, UNSPECIFIED FORMULATION 2006 109 complet ed [facility] TD(ADULT) UNSPECIFIED FORMULATION 2005 139 complet ed Left Deltoid [facility] INFLUENZA, UNSPECIFIED FORMULATION 2005 REY CARDOZA 88 comple t ed [facility] Encounters Combined list of: 1) Encounters from Department of Veterans Affairs facilities going backup to the last 18 months, not all [place] inpatient encounters are included; 2) Encounters from the Department [facility] facilities going backup to 280 months. Location Location Details Encounter Type Encounter Number Reason For Visit Attending Provider ADM Date DC Date Status Disposition Source [facility] Outpatient Encounter [id number] 05/29 [facility] Social History Combined list of available smoking, tobacco, and other social history from [facility] of [facility] and [facility] facilities. Social History Type Response Date Comment Sourc e Tobacco smoking status NHIS QUIT TOBACCO >7 YEARS AGO 02/13/2006 [facility]
--- OUTSIDE RECORDS SUMMARY | 2024-06-25 15:29 | XMS_ITS | Clinical Summary ---
Author Organization [facility], formerly [facility] Address [address] [place] [address] Care Team Providers Care Chair Inspector Name Role Phone Malick Mcgregor MD Unavailable [phone] Mikey Brumfield NP Primary Care Provider [phone] Allergies Active Allergy Reactions Criticality Noted Date [...] artery disease of n ative artery of [place] heart with stable angina pectoris ([facility]) 08/28/2018 Overview (08/28/2018): Added automatically from request for surgery [id number] Assessment & Plan (12/08/2022 11:48 AM CDT): [...] (09/19/2017): Added automatically from request for surgery [id number] Encounter for postoperative care 11/03/2014 Overview (06/17/2016): Post surgical visit Bladder pain 05/27/2014 Resolved Problems Problem Noted Date Diagnosed Date Resolved Date Chest pain 01/06/2020 12/07/2022 Overview (01/06/2020): Added automatically from request for surgery [id number] Chest pain due to myocardial ischemia 08/31/2018 12/07/2022 Unstable angina pectoris ([facility]) 08/28/2018 09/29/2021 Overview (08/28/2018): Added automatically from request for surgery [id number] Acute chest pain 04/10/2018 09/29/2021 Acute coronary syndrome ([facility]/HCC) 04/10/2018 09/29/2021 Overview (04/10/2018): Added automatically from request for surgery [id number] Coronary artery disease invo lving [place] coronary artery of [place] heart without angina pectoris 10/09/2017 09/29/2021 Overview (10/09/2017): Added automatically from request for surgery [id number] Angina pectoris, unstable ([facility]) 09/19/2017 09/29/2021 Overview (09/19/2017): Added automatically from request for surgery [id number] 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 ([facility]) 09/19/2017 09/29/2021 Overview (09/19/2017): Added automatically from request for surgery [id number] Encounters Date Type Department Care Team Description 06/11/2024 Telephone [facility] Cardiology [address] [place] [address] [address] [place] [address] Ellie Wesley MD Cath Rescheduling 06/04/2024 Telephone [facility]iology [address] [place] [address] [address] [place] [address] Ellie Wesley MD [facility] Scheduling 06/04/2024 Results Follow-Up [facility] [address] [place] [address] [address] [place] [address] Ellie Wesley MD 05/27/2024 1:30 PM CDT Ancillary Procedure [facility] [address] [place] [address] Coronary artery disease of [place] artery of [place] heart with stable angina pectoris ([facility]/HCC) ([facility]) 05/27/2024 Telephone [facility]iology [address] [place] [address] Ellie Wesley MD 05/07/2024 10:30 AM WARP KNITTER Office Visit [facility] Card[facility] [place] [address] Ellie Wesley MD Coronary artery disease of [place] artery of [place] heart with stable angina pectoris (CMS/HCC) (HCC) [...] on file Legal Sex Male 11:39 PM WARP KNITTER Gender Identity Not on file Sexual Orientation Not on file Obstetrics History Last Filed Vital Signs Vital Sign Reading Time Taken Comments Blood Pressure 158/80 05/07/2024 11:27 AM WARP KNITTER Pulse 86 05/07/2024 11:27 AM WARP KNITTER Temperature 36.8 C (98.3 F) 08/29/2021 1:45 PM CDT Respiratory Rate 20 08/29/2021 1:45 PM CDT Oxygen Saturation 98% 05/07/2024 11:27 AM WARP KNITTER Inhaled Oxygen Concentration - - Weight 102 kg (224 lb 12.8 oz) 05/07/2024 11:27 AM WARP KNITTER Height 188 cm (6' 2 ) 05/07/2024 11:27 AM WARP KNITTER Body Mass Index 28.86 05/07/2024 11:27 AM WARP KNITTER Plan of Treatment Upcoming Encounters Date Type Department Care Team (Latest Contact Info) Description 07/04/2024 10:20 AM CDT Hospital Encounter [facility] [address] [phone] Ellie Wesley MD [address] [address] Nonrheumatic aortic valve stenosis 07/04/2024 10:20 AM CDT - 07/04/2024 11:55 AM CDT Surgery [facility] [address] [place] [address] Ellie Wesley MD [address] [id number] RIGHT LEFT HEART CATHETERIZATION WITH CORONARY ANGIOGRAPHY GRAFT AND WITH OR WITHOUT LEFT VENTRICULOGRAPHY [id number] Health Maintenance Due Date Last Done Comments [...] 08/29/2021, 02/13/2006 Medical Devices Implanted Type Area Seafood Preparer Device Identifier Shelf Expiration Date Model / Serial / Lot [employer] Elvin [id number] Synergy 3.5mm 38mm 144cm Radiopaque 1 Access Port Inflation Lumen - [id number] Implanted:Qty: 1 on 08/31/2018 by Maurice Olivares MD at [facility] Stent N/A: Coronary [employer] Elvin 06/24/2020 [id number] / / [id number] [employer] Elvin [id number] Synergy 3mm 38mm 144cm Radiopaque 1 Access Port Inflation Lumen - [id number] Implanted:Qty: 1 on 08/31/2018 by Maurice Olivares MD at [facility] Stent N/A: Coronary [employer] Elvin 06/04/2020 [id number] / / [id number] Description:TACHO to RCA [employer] Elvin [id number] Synergy 4mm 38mm 144cm Radiopaque 1 Access Port Inflation Lumen - [id number] Implanted:Qty: 1 on 08/31/2018 by Maurice Olivares MD at [facility] Stent N/A: Coronary [employer] Elvin 06/18/2020 [id number] / / [id number] Description:TACHO to RCA [employer] X [id number] Resolute Basil 3.5mm 2.1-2.7fr 18mm 140cm Rapid Exchange - [id number] Implanted:Qty: 1 on 10/06/2017 by Malick Mcgregor MD at [facility] [employer] X 05/13/2019 [id number] / / [id number] [employer] X [id number] Resolute Basil 2.25mm 2.1-2.7fr 12mm 140cm Rapid Exchange - [id number] Implanted:Qty: 1 on 10/30/2017 by Malick Mcgregor MD at [facility] [employer] X 12/10/2018 [id number] / / [id number] [employer] Elvin [id number] Synergy 4mm 20mm 144cm Radiopaque 1 Access Port Inflation Lumen - [id number] Implanted:Qty: 1 on 04/11/2018 by Malick Mcgregor MD at [facility] N/A: Coronary [employer] Elvin [id number] 10/25/2019 [id number] / / [id number] Description:SVG toRCA Procedures Procedure Name Priority Date/Time Associated Diagnosis Comments CBC WITH AUTO DIFFERENTIAL Routine 06/10/2024 12:00 PM CDT Nonrheumatic aortic valve stenosis BASIC METABOLIC PANEL Routine 06/10/2024 12:00 PM CDT Nonrheumatic aortic valve stenosis TRANSTHORACIC ECHO (TTE) COMPLETE W DOPPLER/CF WO CONTRAST Routine 05/27/2024 2:14 PM CDT Coronary artery disease of [place] artery of [place] heart with stable angina pectoris (CMS/HCC) (HCC) POCT LIPID PANEL Routine 05/07/2024 11:5 8 AM WARP KNITTER Hypercholesteremia HEMOGLOBIN A1C Routine 04/11/2018 5:27 AM WARP KNITTER from Last 3 Months or Most Recently Relevant to Health Maintenance Results * (ABNORMAL) CBC with auto differential (06/10/2024 12:00 PM CDT) [facility] WBC 5.6 3.4 - 10.8 x10E3/uL [facility] [...] 06/11/2024 7:09 AM CDT Performed at: - Lab[address] [id number] Health Information Internship: Harjeet Leung PhD, Phone: [phone] Ellie Wesley MD LAB BLOOD ORDERABLES Fin al Result Performing Organization Address [facility] Co de Phone Number [facility]The [facility] [employer] - * (ABNORMAL) Basic metabolic panel [...] - 06/11/2024 7:09 AM CDT Performed at: [facility] Lab[address] [id number] Health Information Internship: Harjeet Leung PhD, Phone: [phone] Ellie Wesley MD LAB BLOOD ORDERABLES Fin al Result Performing Organization Address [facility] Co de Phone Number LABCO [facility] - * TRANSTHORACIC ECHO (TTE) COMPLETE W DOPPLER/CF WO CONTRAST (05/27/2024 2:14 PM CDT) Pathologist [facility] LV EF 70-75 % CONS SCIMAGE Anatomical Region Laterality Modality Ultrasound 05/27/2024 1:47 PM CDT Narrative 05/28/2024 7:50 PM CDT ECHOCARDIOGRAM Patient Name: VENKATESH KAHN : 1945 Study Date: 05/27/2024 1:47:20 PM Gender: M Tech: [facility] Location: [facility] Ref Provider: ELLIE WESLEY Height(Cm): 188 BSA: 2.33 Weight(Kg): 104.33 BP: 131 / 65 Order Provider: ELLIE WESLEY - PROCEDURES: Echocardiographic Report: Transthoracic Echocardiogram with complete 2D, M-Mode, Spectral and Color Flow Doppler examination. INDICATIONS: I25.118 Atherosclerotic heart disease of [place] coronary artery with other forms of angina [...] regurgitation. Electronically Signed By: Kem Chapa MD [facility] 05/28/2024 7:49:59 PM CDT Procedure Note Kem Chapa MD - 05/28/2024 ECHOCARDIOGRAM Patient Name: VENKATESH KAHN : 1945 Study Date: 05/27/2024 1:47:20 PM Gender: M Tech: [facility] Location: [facility] Ref Provider: ELLIE WESLEY Height(Cm): 188 BSA: 2.33 Weight(Kg): 104.33 BP: 131 / 65 Order Provider: ELLIE WESLEY - PROCEDURES: Echocardiographic Report: Transthoracic Echocardiogram with complete 2D, M-Mode, Spectral and ColorFlow Doppler examination. INDICATIONS: I25.118 Atherosclerotic heart disease of [place] coronary artery with otherforms of angina pectoris. [...] aorticregurgitation. Electronically Signed By: Kem Chapa MD [facility] 05/28/2024 7:49:59 PM CDT Ellie Wesley MD CV ECHO PROCEDURES Final Result * (ABNORMAL) POCT lipid panel (05/07/2024 11:58 AM WARP KNITTER) HDL, POC 32 > - 40 mg/dL Triglycerides, POC 206(A) < - 150 mg/dL LDL Cholesterol POC 27 < - 100 mg/dL Cholesterol Total, POC <100 < - 200 mg/dL Capillary blood 05/07/2024 1 1:58 AM WARP KNITTER us Ellie Wesley MD POINT OF CARE TEST ORDER KELLY Final Result * (ABNORMAL) Hemoglobin A1c (04/11/2018 5:27 AM WARP KNITTER) Hgb A1C 7.8(H) 4.0 - 5.6 % [facility] Estimated Average Glucose 177 mg/dL [facility] Comment: The ADA recommends reporting an estimated Average Glucose (eAG) with all Hemoglobin A1c results using the equation derived from a study of 507 normal and diabetic adults. Minority populations were underrepresented and children were not included. (Diabetes Care 31:5675-2469, 2008). The eAG is not equivalent to a fasting glucose. Blood specimen (specimen) 04/11/2018 5:27 AM WARP KNITTER 04/11/2018 5:53 AM WARP KNITTER Narrative [facility] - 04/11/2018 6:10 AM WARP KNITTER Arley Garcia MD LAB BLOOD ORDERABLES Final Res ult [facility] [address] Department [place] [address] from Last 3 Months or Most Recently Relevant to Health Maintenance Insurance [facility] MEDICARE ADVANTAGE IDPA IDPA [facility] MEDICARE ADVANTAGE [facility] MEDICARE ADVANTAGE Advance Directives For more information, please contact: [phone] * Full Code (Latest Code Status on [...] 9:12 AM 10/07/2017 12:16 PM Care Teams Chair Inspector Relationship Specialty Start Date End Date Mikey Brumfield NP [address] [place] [address] PCP - General Nurse Practitioner 06/20/24 Malick Mcgregor MD [address] [place] [address] Consulting Physician Cardiology 04/12/18
--- OUTSIDE RECORDS SUMMARY | 2024-06-25 15:29 | XMS_ITS | Clinical Summary ---
Author Organization [facility] Address [address] [place] [address] Care Team Providers Care Host/Hostess Name Role Phone Isaiah Connor MD Primary Care Provider Whitley potter Source Comments [facility],non-owned Affiliates and Associated Physician Practices is amultiple site organization consisting of ambulatory clinics and hospital sitesin [place], [place], [place] and [place]. This disclosure is being madepursuant to the Care Everywhere program and may not contain all information available regarding this patient. Last updated 17.[facility] Allergies Active Allergy Reactions Criticality Noted Date [...] on file Legal Sex Male 6:16 AM METAL TILE SETTER Gender Identity Not on file Sexual Orientation [...] patient's age to complete this topic Insurance [facility] [place] [address] Care Teams Host/Hostess Relationship Specialty Start Date End Date Isaiah Connor MD PCP - General 06/28/17
--- OUTSIDE RECORDS SUMMARY | 2024-06-25 15:29 | XMS_ITS | Continuity of Care Document ---
Author Organization [facility] Address [address] [place] [address] Phone Care Team Providers Care Media Reporter Name Role Phone Mikey Ellis MD Unavailable [...] Diagnoses Date Provider Providers Copied on Encounter [facility], [address], [place], [place], [id number], tel:[phone] [facility] No Information Caleb Jensen. [address], [place], [place], [id number], [place]. tel:[phone] Referring Provider: Aubrey Davenport DO, [address], [place], [address]. tel:[phone] [facility], [address], [place], [place], [id number], tel:[phone] [facility] No Information Jeff Buckley. [address], [place], [place], [id number], [place]. tel:[phone] Referring Provider: Aubrey Davenport DO, [address], [place], [address]. tel:[phone] Family History Family Member Type Diagnosis Age At Onset No Information Payers Payer name Insurance type Covered constitution party ID Authoriza tibravo(s) [facility] MDCR COMPLETE HMO MB [id number] Social History Type Description Quantity Date Captured [...]
--- OUTSIDE RECORDS SUMMARY | 2024-06-25 15:29 | XMS_ITS | Continuity of Care Document ---
Author Organization [facility] Address [address] [place] [address] [address] [place] [address] Phone Care Team Providers Care Language And Literature Division Chair Name Role Phone Donovan Baca Unavailable Unavailable Procedures Procedure Date Eye Exam & Treatment Refraction Eye Exam & Treatment Refraction Anti-reflective Coating Eye Exam & Treatment Refraction BF Plastic Sphcyl [place] To +/-4d .12-2d Tint Photochromatic, Plastic Anti-reflective Coating Tax - Medical Advance Directives Directive Yes / No Effective Date File Name No Information Encounters Encounter Description Practice Location Reason(s) For Visit Diagnoses Date Provider Providers Copied on Encounter [facility], [address] [place] [address] [address], [place], [place], [id number], tel:[phone] [facility] No Information 2-201 0 Keven Man. [address], [place], [address], [place]. tel:[phone] [facility], [address] [place] [address] [address], [place], [place], [id number], tel:[phone] [facility] No Information 0 5-200 9 Keven Man. [address] , [address], [place], [address], [place]. tel:[phone] [facility], [address], [place], [place], [id number], [place] tel:[phone] [facility] No Information [address] [employer] [facility] . [address], [address], [place], [place], [id number], [place]. tel:[phone] Consulting Provider: Veronica William, [address] [place] [address], [address]. tel:[phone] [facility], [address], [place], [place], [address], [place] tel:[phone] [facility] No Information 7 Doisy Edward. [facility] [address] , [address], [place], [address], [place]. tel:[phone] [facility], [address], [place], [place], [address], [place] tel:[phone] [facility] No Information 7 [facility] . [address], [address], [place], [place], [id number], [place]. tel:[phone] Referring Provider: Colt Rosa, [address], [place], [address]. tel:[phone] g Provider: Shira Cabello, [address] [place] [address], [address]. tel:[phone] Family History Family Member Type Diagnosis Age [...]
== END 2024-06-25 16:40 | disposition left against medical advice (07) ==
PROVIDERS: Emergency Provider Physician Assistant; PCP Nurse Practitioner
DX: R42 Dizziness and giddiness (principal); I48.91 Unspecified atrial fibrillation; I25.10 Atherosclerotic heart disease of native coronary artery without angina pectoris; E53.8 Deficiency of other specified B group vitamins; E55.9 Vitamin D deficiency, unspecified; E78.5 Hyperlipidemia, unspecified; E11.42 Type 2 diabetes mellitus with diabetic polyneuropathy; K21.9 Gastro-esophageal reflux disease without esophagitis; M10.9 Gout, unspecified; M19.90 Unspecified osteoarthritis, unspecified site; M51.369 Other intervertebral disc degeneration, lumbar region without mention of lumbar back pain or lower extremity pain; Z95.1 Presence of aortocoronary bypass graft; Z95.5 Presence of coronary angioplasty implant and graft; Z96.653 Presence of artificial knee joint, bilateral; Z86.2 Personal history of diseases of the blood and blood-forming organs and certain disorders involving the immune mechanism; Z86.0100 Personal history of colon polyps, unspecified; Z85.828 Personal history of other malignant neoplasm of skin; Z98.49 Cataract extraction status, unspecified eye; Z90.49 Acquired absence of other specified parts of digestive tract; Z87.891 Personal history of nicotine dependence; Z79.82 Long term (current) use of aspirin; Z79.899 Other long term (current) drug therapy; Z79.01 Long term (current) use of anticoagulants; Z79.84 Long term (current) use of oral hypoglycemic drugs
CPT/HCPCS: 99281

== ENCOUNTER 2024-07-10 07:40 | Outpatient (CLI) | payer MEDICARE, MEDICAID, SELFPAY ==
--- OUTSIDE RECORDS SUMMARY | 2024-07-10 07:45 | XMS_ITS | Clinical Summary ---
Author Organization [facility] Address [address] [place] [address] Care Team Providers Care Pickling Drum Operator Name Role Phone Malick Mcgregor MD Unavailable [phone] Mikey Brumfield NP Primary Care Provider [phone] Allergies Active Allergy Reactions Criticality Noted Date Comments Niacin Hallucinations,Flush ing (skin) Medium 12/05/2007 Penicillins Hives,Rash Medium 06/28/2017 Reaction: HIVES, Reaction: Hives, , Pravastatin Muscle pain Medium 10/17/2008 Simvastatin Muscle pain Medium 08/31/2006 Medications glipiZIDE (GLUCOTROL) 5 mg tabletIndicatio ns:type 2 diabetes mellitus Take 1 tablet (5 [...] unit tablet Take 1 tablet by mouth daily Active FENOFIBRIC ACID ORAL Take 135 mg by mouth daily. Active metFORMIN (GLUCOPHAGE) 1,000 mg tablet Take 1 tablet (1,000 mg total) by mouth 2 (two) times a day With dinner and at bedtime. Resume metformin after 2 days on 09/03/18 09/04/19 Active Additional Information Patient taking differently:1,000 mg oralDaily with dinner, (No instructions reported), Reported on 07/03/2024 aspirin 81 mg enteric coated tablet Take [...] chest pain 90 tablet 3 04/19/19 25 Active amiodarone (PACERONE) 200 mg tablet Take 1 tablet (200 mg total) by mouth daily Pt only takes medication on //, please send one year supply 100 tablet 05/01/19 25 Active clindamycin (CLEOCIN) 300 mg capsule TAKE 2 CAPSULES BY MOUTH 2 HOURS BEFORE APPT AND 2 CAPSULES BY MOUTH DAY AFTER APPT 04/25/19 Active lisinopriL (PRINIVIL,ZESTR IL) 20 mg tablet Take 1 tablet (20 mg total) by mouth daily 90 tablet 3 06/05/19 25 Active Additional Information Patient taking differently:20 mg oralNightly, Reported on 07/04/2024 clopidogreL (PLAVIX) 75 mg tablet Take 1 tablet (75 mg total) by mouth daily 90 tablet 3 07/05/19 25 Active gabapentin (NEURONTIN) 600 mg tablet Take 1 tablet (600 mg total) by mouth every 6 (six) hours 6-18-24 025 Discontin ued(Thera py completed ) aspirin 325 mg tablet Take 1 tablet (325 mg total) by mouth every 6 (six) hours as needed for pain 025 Discontin ued(Stop Taking at Discharge ) Active Problems Problem Noted Date Diagnosed Date [...] artery disease of n ative artery of picayune heart with stable angina pectoris ([facility]) 08/28/2018 Overview (08/28/2018): Added automatically from request for surgery [id number] Assessment & Plan (12/08/2022 11:48 AM CDT): [...] (09/19/2017): Added automatically from request for surgery [id number] Encounter for postoperative care 11/03/2014 Overview (06/17/2016): Post surgical visit Bladder pain 05/27/2014 Resolved Problems Problem Noted Date Diagnosed Date Resolved Date Chest pain 01/06/2020 12/07/2022 Overview (01/06/2020): Added automatically from request for surgery [id number] Chest pain due to myocardial ischemia 08/31/2018 12/07/2022 Unstable angina pectoris ([facility]) 08/28/2018 09/29/2021 Overview (08/28/2018): Added automatically from request for surgery [id number] Acute chest pain 04/10/2018 09/29/2021 Acute coronary syndrome ([facility]) 04/10/2018 09/29/2021 Overview (04/10/2018): Added automatically from request for surgery [id number] Coronary artery disease invo lving picayune coronary artery of picayune heart without angina pectoris 10/09/2017 09/29/2021 Overview (10/09/2017): Added automatically from request for surgery [id number] Angina pectoris, unstable ([facility]) 09/19/2017 09/29/2021 Overview (09/19/2017): Added automatically from request for surgery [id number] Coronary artery disease invo lving coronary bypass graft of picayune heart with unstable angina pectoris ([facility]) 09/19/2017 09/29/2021 Overview (09/19/2017): Added automatically from request for surgery [id number] Encounters Date Type Department Care Team Description 07/04/2024 10:20 AM CDT - 07/04/2024 11:55 AM CDT Surgery [facility] [address] [place] [phone] Ellie Wesley MD RIGHT LEFT HEART CATHETERIZATION WITH CORONARY ANGIOGRAPHY GRAFT AND WITH OR WITHOUT LEFT VENTRICULOGRAPHY [id number] 07/04/2024 8:49 AM CDT - 07/04/2024 2:13 PM CDT Hospital Encounter [facility] [address] [place] [phone] Ellie Wesley MD Nonrheumatic aortic valve stenosis Discharge Disposition: Discharge to home or self care 06/11/2024 Telephone [facility] [address] [place] [address] [place] [phone] Ellie Wesley MD Cath Rescheduling 06/04/2024 Telephone [facility] [address] [place] [address] [address] [place] [address] Ellie Wesley MD [facility] Scheduling 06/04/2024 Results Follow-Up [facility] [address] [facility] [address] [place] [address] Ellie Wesley MD 05/27/2024 1:30 PM CDT Ancillary Procedure [facility] [address] [facility] [address] [place] [address] 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 (CMS/HCC) (HCC) 05/27/2024 Telephone [facility] [address] [facility] [address] [place] [address] Ellie Wesley MD 05/07/2024 10:30 AM EARTHMOVING LABOURER Office Visit [facility] [address] [facility] [address] [place] [address] Ellie Wesley MD 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 Medical History Medical History Date Comments Type [...] drink = 0.6 oz pur e alcohol) AUDIT-C Answer Date Recorded Q1: How often do you have a drink containing alcohol? Never 07/04/2024 Q2: How many drinks containi ng alcohol do you have on a typical day when you are drinking? Patient does not drink Q3: How often do you have si x or more drinks on one occasion? Never 07/04/2024 Personal Safety Answer Date Recorded Have you ever been in or are you currently in a harmful physical or emotional relationship or is someone making you feel afraid or unsafe? Denies 07/04/2024 Sex and Gender Information Value Date Recorded Sex Assigned at Not on file Legal Sex Male 11:39 PM EARTHMOVING LABOURER Gender Identity Not on file Sexual Orientation Not on file Obstetrics History Last Filed Vital Signs Vital Sign Reading Time Taken Comments Blood Pressure 140/72 07/04/2024 1:50 PM CDT Pulse 59 07/04/2024 1:50 PM CDT Temperature 36.8 C (98.2 F) 07/04/2024 9:06 AM CDT Respiratory Rate 20 07/04/2024 1:50 PM CDT Oxygen Saturation 98% 07/04/2024 1:50 PM CDT Inhaled Oxygen Concentration - - Weight 99.9 kg (220 lb 3.8 oz) 07/04/2024 9:06 A M CDT Height 188 cm (6' 2 ) 07/04/2024 9:06 AM CDT Body Mass Index 28.28 07/04/2024 9:06 AM CDT Plan of Treatment Health Maintenance Due Date Last Done Comments Albumin Creatinine Ratio, Urine 1945 Depression Screening 1945 Dilated Eye Exam 1945 Foot Exam [...] 06/10/2025 06/10/2024, 12/13, 09/01/2018, Additional history exists Fall Risk Assessment 07/04/2025 07/04/2024 DTaP/Tdap/Td Vaccine (2 - Td or Tdap) 08/30/2031 08/29/2021, 02/13/2006 Medical Devices Implanted Type Area Crown Perforator Operator Device Identifier Shelf Expiration Date Model / Serial / Lot Mimix Broadband Elvin [id number] Synergy 3.5mm 38mm 144cm Radiopaque 1 Access Port Inflation Lumen - [id number] Implanted:Qty: 1 on 08/31/2018 by Maurice Olivares MD at [facility] Stent N/A: Coronary [employer] Elvin 06/24/2020 [id number] / / [id number] [employer] Elvin [id number] Synergy 3mm 38mm 144cm Radiopaque 1 Access Port Inflation Lumen - [id number] Implanted:Qty: 1 on 08/31/2018 by Maurice Olivares MD at [facility] Stent N/A: Coronary [employer] Elvin 06/04/2020 [id number] / / [id number] Description:TACHO to RCA [employer] Elvin [id number] Synergy 4mm 38mm 144cm Radiopaque 1 Access Port Inflation Lumen - [id number] Implanted:Qty: 1 on 08/31/2018 by Maurice Olivares MD at [facility] Stent N/A: Coronary [employer] Elvin 06/18/2020 [id number] / / [id number] Description:TACHO to RCA [employer] Elvin Synergy Xd Monorail 3mm 20mm 144cm Delivery System 1 Access Port [id number] - S0 - [id number] Implanted:Qty: 1 on 07/04/2024 by Ellie Wesley MD at [facility] Stent [employer] Elvin 12/10/2025 [id number] / 0 / [id number] Ha[employer] V[employer] System Closure Repair Femoral Artery Suture Mediated Perclose Prostyle 18429-53 - S0 - [id number] Implanted:Qty: 1 on 07/04/2024 by Ellie Wesley MD at [facility] Vascular Closure Device [employer] 06/10/2026 [id number] / 0 / [id number] [employer] Elvin Angio-Seal Vip 6fr Closere Device [id number] - S0 - [id number] Implanted:Qty: 1 on 07/04/2024 by Ellie Wesley MD at [facility] Vascular Closure Device [employer] Elvin 01/28/2025 [id number] / 0 / [id number] [employer] Inc Device Vascular Closure Femoral Artery Bioabsorbable Dual Method Vascade 6-7fr Collagen [id number] - S0 - [id number] Implanted:Qty: 1 on 07/04/2024 by Ellie Wesley MD at [facility] Vascular Closure Device [employer] Inc 05/20/2026 [id number] / 0 / [id number] [employer] X [id number] Resolute Basil 3.5mm 2.1-2.7fr 18mm 140cm Rapid Exchange - [id number] Implanted:Qty: 1 on 10/06/2017 by Malick Mcgregor MD at [facility] [employer] X 05/13/2019 [id number] / / [id number] [employer] X [id number] Resolute Varina 2.25mm 2.1-2.7fr 12mm 140cm Rapid Exchange - [id number] Implanted:Qty: 1 on 10/30/2017 by Malick Mcgregor MD at [facility] [employer] X 12/10/2018 [id number] / / [id number] [employer] Elvin [id number] Synergy 4mm 20mm 144cm Radiopaque 1 Access Port Inflation Lumen - [id number] Implanted:Qty: 1 on 04/11/2018 by Malick Mcgregor MD at [facility] N/A: Coronary [employer] Elvin [id number] 10/25/2019 [id number] / / [id number] Description:SVG toRCA Procedures Procedure Name Priority Date/Time Associated Diagnosis Comments ECG 12-LEAD Routine 07/04/2024 12:45 PM CDT RIGHT LEFT HEART CATHETERIZATION CORONARY GRAFT WITH WITHOUT LEFT VENTRICULOGRAPHY ANGIOGRAM Routine 07/04/2024 11:53 AM CDT Nonrheumatic aortic valve stenosis POCT ACTIVATED CLOTTING TIME, LOW RANGE Routine 07/04/2024 11:31 AM CDT ECG 12-LEAD STAT 07/04/2024 9:16 AM CDT Nonrheumatic aortic valve stenosis POCT GLUCOSE DEVICE Routine 07/04/2024 9 :00 AM CDT CBC WITH AUTO DIFFERENTIAL Routine 06/10/2024 12:00 PM CDT Nonrheumatic aortic valve stenosis BASIC METABOLIC PANEL Routine 06/10/2024 12:00 PM CDT Nonrheumatic aortic valve stenosis TRANSTHORACIC ECHO (TTE) COMPLETE W DOPPLER/CF WO CONTRAST Routine 05/27/2024 2:14 PM CDT 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 (CMS/HCC) (HCC) POCT LIPID PANEL Routine 05/07/2024 11:5 8 AM EARTHMOVING LABOURER Hypercholesteremia HEMOGLOBIN A1C Routine 04/11/2018 5:27 AM EARTHMOVING LABOURER from Last 3 Months or Most Recently Relevant to Health Maintenance Results * ECG 12 lead (07/04/2024 12:45 PM CDT) 07/04/2024 12:4 5 PM CDT Narrative [facility] - 07/05/2024 1:45 PM CDT Vent Rate: 59 bpm RR Interval: 1008 msec MS Interval: 187 msec QRS Duration: 106 msec QT Interval: 446 msec QTC Interval: 444 msec P-R-T [place]: 57 - -11 - -7 degrees IMPRESSION: SINUS BRADYCARDIA WITH FIRST-DEGREE AV BLOCK WITH OCCASIONAL SUPRAVENTRICULAR PREMATURE COMPLEXES BORDERLINE PROLONGED QT INTERVAL MODERATE ST-DEPRESSION ABNORMAL ECG Electronically Signed By: Aubrey Webb MD mobap us Ellie Wesley MD ECG ORDERABLES Final Re sult [facility] * RIGHT LEFT HEART CATHETERIZATION CORONARY GRAFT WITH WITHOUT LEFT VENTRICULOGRAPHY ANGIOGRAM (07/04/2024 11:53 AM CDT) Anatomical Region Laterality Modality X-Ray Angiograph y Addenda Addendum by Ellie Wesley MD on 07/04/2024 12:50 PM CDT Images from the original result were not included. [facility] Cardiology [address] [place] [address], [id number], [address] Left Heart Catheterization Procedure Report Attending Physician: Ellie Wesley MD, [facility] Pre-Diagnosis: Aortic stenosis / CAD Post-Diagnosis: Same Mr. Kahn is an 78 year old male with coronary artery disease with history of CABG who was found to have severe aortic stenosis by echocardiography. He was referred for right and left heart catheterization. Procedures Performed: Right heart catheterization Selective coronary angiography Left heart catheterization Bypass graft angiography Intravascular ultrasound of the LAD and 1st diagonal vessel Shockwave lithotripsy of the LAD and 1st diagonal vessel PTCA and drug eluting stent placement to the LAD and 1st diagonal vessel. Access:6F right femoral artery and 7 Cuban Right Femoral Vein Catheter:Jatin, JR 4, JL 4, [place], and AL 1 Injection:Left Main Trunk, Right Coronary Artery, SVG, and RUIZ Closure:Perclose and Vascade Anticoagulation:9000 Units Heparin Contrast: 105 ml Optiray Sedation: The patient was administered moderate sedation utilizing IV versed and fentanyl. The performing physician was present and supervising the administration of the medication throughout the sedation process. EBL: <10 mL Specimen removed: None Procedural details: After risks, benefits, and alternatives to the procedure were explained to the patient, they agreed to proceed. After signing informed consent the patient was brought to the cardiac catheterization laboratory. There were prepped and draped in sterile fashion. A 6 Cuban sheath was inserted in the Right Femoral Artery using the modified Seldinger techniquewith ultrasound guidance. A 7 Cuban sheath was inserted into the right femoral vein using the modified Seldinger technique with ultrasound guidance. Seven Cuban [place]-Cornelio catheter was used to perform right heart catheterization. We then performed selective coronary angiography using various catheters. We then crossed the aortic valve and measured pressures. At completion of the case a Perclose was deployed at the femoral artery with good hemostasis achieved. The patient tolerated the procedure well with no complaints and was transferred to the floor for further monitoring and care. Coronary Findings: LMT: Patent LAD: 90% proximal stenosis just prior to takeoff of 1st diagonal and septal engineering vice president branches. 100% mid vessel occlusion. LCX: Large caliber, non-dominant vessel with 100% proximal occlusion. RCA: Large caliber, dominant vessel giving rise to a PDA and rPL branches. There are patent stents throughout the vessel. RUIZ to LAD: Patent Free radial to OM: Patent SVG to RCA: Occluded Hemodynamic Findings: Right atrial mean: 7 mmHg Right ventricular pressure: 35/12 mmHg Pulmonary artery pressure: 33/14 mean 20 mmHg Pulmonary capillary wedge pressure: 9 mmHg LV: 173/12 mm Hg Ao: 138/56 mean 88 mm Hg O2 Sats: PA: 70.1% Ao: 94.1% Farooq Cardiac Output: 4.75 L/min Farooq Cardiac Index: 2.1 L/min/m2 Mean gradient: 30 mmHg Aortic valve area: 0.9 cm2 Interventional details: 6F XB 3.5 guiding catheter was engaged in the left main coronary artery 0.014 x 190 Tye Blue wire was advanced into the distal 1st diagonal without difficulty, and 0.014 x 190 Tye Black wire was advanced into the LAD PTCA of the LAD into the first diagonal was performed with 2.5 x 15 mm compliant balloon at rated burst pressure for 30 seconds Intravascular ultrasound was performed demonstrating severe calcific stenosis of the LAD and 1st diagonal Shockwave lithotripsy was performed with 3.0 x 12 mm shockwave balloon delivering 120 pulses to the LAD and 1st diagonal bifurcation 3.0 x 20 mm Synergy drug eluting stent was advanced into the LAD traversing into the 1st diagonal vessel and deployed at nominal pressure for 30 seconds Post-dilation was performed with 3.5 x 12 mm NC balloon at 20 atms for 30 seconds in serial inflations Final angiography was performed demonstrating ALBIN III flow and 0% residual stenosis Conclusions: Severe multivessel coronary artery disease - 2/3 patent bypass grafts Successful IVUS-guided PTCA and drug eluting stent placement to the proximal LAD and 1st diagonal vessel Severe aortic stenosis Recommendations: - Optimal medical therapy for CAD per current ACC/AHA guidelines - Bedrest x2 hours - Refer for TAVR Ellie Wesley MD 07/04/2024 12:23 PM [facility] PCI RISK CALCULATOR PCI INDICATIONS New Onset Angina <= 2 months PCI STATUS [x] Elective [] Urgent [] Emergency [] Salvage CARDIOVASCULAR INSTABILITY [] Persistent Ischemic Symptoms (Chest Pain, STEMI) [] Hemodynamic Instability [] Ventricular Arrhythmias [] Acute Heart Failure [] Cardiogenic Shock [] Salvage or Refractory Cardiogenic Shock CARDIAC ARREST [] NO [] YES AND RESPONSIVE [] YES AND UNRESPONSIVE FRAILTY [] Moderately Frail [] Severely Frail [] Very Severely Frail [] Terminally Ill OTHER PATIENT CHARACTERISTICS [] At Least Moderate Aortic Stenosis [] Surgical Turn Down CONGESTIVE HEART FAILURE (NYHA Classification) [] I [] II [] III [] IV STRESS TEST: EXTENT OF ISCHEMIA [] Low Risk (<1% annual risk of or NC) [] Intermediate Risk (1-3% annual risk of or NC [] High Risk (>3% annual risk of or NC) LESION CHARACTERISTICS (HIGH RISK Type C LESIONS) [] Diffuse Length (> 2 cm) [x] Excessive Tortuosity of Proximal Segment [x] Extremely Angulated Segments > 90 degrees [x] Bifurcation Lesion (with the inability to protect major side branches) [] Degenerated Vein Grafts with Friable Segments [] Chronic Total Occlusion (> 3 mos) and/or bridging collaterals OTHER HIGH RISK CHARACTERISTICS [] In-Stent Thrombosis [x] Heavily Calciified [x] High Risk Coronary Segment (LEFT MAIN OR PROX LAD) Ellie Wesley MD CV CARDIAC CATH PROCEDUR ES Edited Result - Final * (ABNORMAL) POCT Activated clotting time, low range (07/04/2024 11:31 AM CDT) ACT 321(H) 123 - 168 sec POC Performer [id number] [facility] Blood 07/04/2024 11:3 1 AM CDT 07/04/2024 11:31 AM CDT Ellie Wesley MD LAB POCT ORDERABLES - DE VICE Final Result [facility] [address] Department [place] [address] * ECG 12 lead (07/04/2024 9:16 AM CDT) 07/04/2024 9:16 AM CDT Narrative [facility] - 07/04/2024 10:27 PM CDT Vent Rate: 55 bpm RR Interval: 1080 msec MS Interval: 235 msec QRS Duration: 113 msec QT Interval: 475 msec QTC Interval: 464 msec P-R-T [place]: 54 - -19 - -11 degrees IMPRESSION: SINUS BRADYCARDIA WITH FIRST DEGREE AV BLOCK INCOMPLETE RIGHT BUNDLE BRANCH BLOCK PROLONGED QT INTERVAL ABNORMAL ECG Electronically Signed By: Jace Elam MD [facility] Ellie Wesley MD ECG ORDERABLES Final Re sult [facility] * POCT glucose (07/04/2024 9:00 AM CDT) Pathologist [facility] Glucose, POC 103 70 - 199 mg/dL Comment: For Glucose values <35 mg/dl when Hematocrit is >60 mg/dl,the test may not accurately detect significant hypoglycemia,and testing in the Laboratory should be considered if clinically indicated. POC Performer [id number] [facility] Blood 07/04/2024 9:00 AM CDT 07/04/2024 9:00 AM CDT Ellie Wesley MD LAB POCT ORDERABLES - DE VICE Final Result [facility] [address] Department [place] [address] * (ABNORMAL) CBC with auto differential (06/10/2024 12:00 PM CDT) [facility] WBC 5.6 3.4 - 10.8 x10E3/uL [facility] [...] - 06/11/2024 7:09 AM CDT Performed at: [address] [id number] Management Assistant: Harjeet Leung PhD, Phone: [phone] us Ellie Wesley MD LAB BLOOD ORDERABLES Fin al [facility] - * (ABNORMAL) Basic metabolic panel (06/10/2024 12:00 PM CDT) Pathologist [facility] Glucose 140(H) 70 - 99 mg/dL [facility] [...] 06/11/2024 7:09 AM CDT Performed at: - [address] [id number] Management Assistant: Harjeet Leung PhD, Phone: [phone] us Ellie Wesley MD LAB BLOOD ORDERABLES Fin al [facility] - 01 * TRANSTHORACIC ECHO (TTE) COMPLETE W DOPPLER/CF WO CONTRAST (05/27/2024 2:14 PM CDT) LV EF 70-75 % CONS SCIMAGE Anatomical Region Laterality Modality Ultrasound 05/27/2024 1:47 PM CDT Narrative 05/28/2024 7:50 PM CDT ECHOCARDIOGRAM Patient Name: VENKATESH KAHN : 1945 Study Date: 05/27/2024 1:47:20 PM Gender: M Tech: [facility] Location: [facility] Ref Provider: ELLIE WESLEY Height(Cm): 188 BSA: 2.33 Weight(Kg): 104.33 BP: 131 / 65 Order Provider: ELLIE WESLEY - PROCEDURES: Echocardiographic Report: Transthoracic Echocardiogram with complete 2D, M-Mode, Spectral and Color Flow Doppler examination. INDICATIONS: I25.118 Atherosclerotic heart disease of picayune coronary artery with other forms of angina [...] regurgitation. Electronically Signed By: Kem Chapa MD [facility] 05/28/2024 7:49:59 PM CDT Procedure Note Kem Chapa MD - 05/28/2024 ECHOCARDIOGRAM Patient Name: VENKATESH KAHN : 1945 Study Date: 05/27/2024 1:47:20 PM Gender: M Tech: [facility] Location: [facility] Ref Provider: ELLIE WESLEY Height(Cm): 188 BSA: 2.33 Weight(Kg): 104.33 BP: 131 / 65 Order Provider: SIRISHAELLIE - PROCEDURES: Echocardiographic Report: Transthoracic Echocardiogram with complete 2D, M-Mode, Spectral and ColorFlow Doppler examination. INDICATIONS: I25.118 Atherosclerotic heart disease of picayune coronary artery with otherforms of angina pectoris. [...] aorticregurgitation. Electronically Signed By: Kem Chapa MD [facility] 05/28/2024 7:49:59 PM CDT Result [facility] Ellie Wesley MD CV ECHO PROCEDURES Final Result * (ABNORMAL) POCT lipid panel (05/07/2024 11:58 AM EARTHMOVING LABOURER) HDL, POC 32 > - 40 mg/dL Triglycerides, POC 206(A) < - 150 mg/dL LDL Cholesterol POC 27 < - 100 mg/dL Cholesterol Total, POC <100 < - 200 mg/dL Capillary blood 05/07/2024 1 1:58 AM EARTHMOVING LABOURER Result [facility] Ellie Wesley MD POINT OF CARE TEST ORDER KELLY Final Result * (ABNORMAL) Hemoglobin A1c (04/11/2018 5:27 AM EARTHMOVING LABOURER) Hgb A1C 7.8(H) 4.0 - 5.6 % [facility] Estimated Average Glucose 177 mg/dL [facility] Comment: The ADA recommends reporting an estimated Average Glucose (eAG) with all Hemoglobin A1c results using the equation derived from a study of 507 normal and diabetic adults. Minority populations were underrepresented and children were not included. (Diabetes Care 31:1333-3613, 2008). The eAG is not equivalent to a fasting glucose. Blood specimen (specimen) 04/11/2018 5:27 AM EARTHMOVING LABOURER 04/11/2018 5:53 AM EARTHMOVING LABOURER Narrative [facility] - 04/11/2018 6:10 AM EARTHMOVING LABOURER Result [facility] Arley Garcia MD LAB BLOOD ORDERABLES Final Res ult [facility] [address] [place] [address] from Last 3 Months or Most Recently Relevant to Health Maintenance Insurance [facility] MEDIC[facility] ADVANTAGE IDPA [facility] MEDIC[facility] ADVANTAGE [facility] MEDIC[facility] ADVANTAGE Advance Directives For more information, please contact: [phone] * Full Code (Latest Code Status on File) Date Activated Date Inactivated Comments 07/04/2024 12:20 PM 07/04/2024 6:13 PM * Full Code Date Activated Date Inactivated Comments 01/10/2020 9:06 AM 01/10/2020 4:16 PM * Full Code Date Activated Date Inactivated Comments 08/30/2018 11:25 AM 09/01/2018 4:13 PM * Full Code Date Activated Date Inactivated Comments 04/10/2018 2:18 PM 04/12/2018 2:49 PM * Full Code Date Activated Date Inactivated Comments 10/30/2017 10:42 AM 10/31/2017 12:13 PM Care Teams Pickling Drum Operator Relationship Specialty Start Date End Date Mikey Brumfield NP [address] [place] [address] PCP - General Nurse Practitioner 06/20/24 Malick Mcgregor MD [address] [facility] [address] [place] [address] Consulting Physician Cardiology 04/12/18
--- OUTSIDE RECORDS SUMMARY | 2024-07-10 07:45 | XMS_ITS | Referral Summary ---
Author Organization [facility] Address [address] [place] [address] Care Team Providers Care Entry Level Civil Engineer Name Role Phone Malick Mcgregor MD Unavailable [phone] Mikey Brumfield NP Primary Care Provider [phone] Encounters Date Type Department Care Team Description 07/04/2024 10:20 AM CDT - 07/04/2024 11:55 AM CDT Surgery [facility] [address] [place] [phone] Ellie Wesley MD RIGHT LEFT HEART CATHETERIZATION WITH CORONARY ANGIOGRAPHY GRAFT AND WITH OR WITHOUT LEFT VENTRICULOGRAPHY [id number] 07/04/2024 8:49 AM CDT - 07/04/2024 2:13 PM CDT Hospital Encounter [facility] [address] [place] [phone] Ellie Wesley MD Nonrheumatic aortic valve stenosis Discharge Disposition: Discharge to home or self care 06/11/2024 Telephone [facility] [address] [place] [address] [place] [phone] Ellie Wesley MD Cath Rescheduling 06/04/2024 Telephone [facility] [address] [place] [address] [place] [phone] Ellie Wesley MD [facility] Scheduling 06/04/2024 Results Follow-Up [facility] [address] [facility] [address] [place] [phone] Ellie Wesley MD 05/27/2024 Telephone [facility] [address] [facility] [address] [place] [address] Ellie Wesley MD 05/27/2024 1:30 PM CDT Ancillary Procedure [facility] [address] [facility] [address] [place] [address] 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 (CMS/HCC) (HCC) 05/07/2024 10:30 AM SEX OFFENDER TREATMENT PROFESSIONAL Office Visit [facility] [facility] [address] [place] [address] Ellie Wesley MD 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 (CMS/HCC) ([facility]) (Primary Dx); Hypercholesteremia; Paroxysmal atrial fibrillation ([facility]) from Last 3 Months Allergies Active Allergy [...] mouth daily 90 tablet 3 07/05/19 25 04/24/2 026 Active gabapentin (NEURONTIN) 600 mg tablet Take 1 tablet (600 mg total) by mouth every 6 (six) hours 618-24 025 Discontin ued(Thera py completed ) aspirin [...] artery disease of n ative artery of naknek heart with stable angina pectoris ([facility]) 08/28/2018 Overview (08/28/2018): Added automatically from request for surgery [id number] Assessment & Plan (12/08/2022 11:48 AM CDT): [...] (09/19/2017): Added automatically from request for surgery [id number] Encounter for postoperative care 11/03/2014 Overview (06/17/2016): Post surgical visit Bladder pain 05/27/2014 Resolved Problems Problem Noted Date Diagnosed Date Resolved Date Chest pain 01/06/2020 12/07/2022 Overview (01/06/2020): Added automatically from request for surgery [id number] Chest pain due to myocardial ischemia 08/31/2018 12/07/2022 Unstable angina pectoris ([facility]) 08/28/2018 09/29/2021 Overview (08/28/2018): Added automatically from request for surgery [id number] Acute chest pain 04/10/2018 09/29/2021 Acute coronary syndrome ([facility]) 04/10/2018 09/29/2021 Overview (04/10/2018): Added automatically from request for surgery [id number] Coronary artery disease invo lving naknek coronary artery of naknek heart without angina pectoris 10/09/2017 09/29/2021 Overview (10/09/2017): Added automatically from request for surgery [id number] Angina pectoris, unstable ([facility]) 09/19/2017 09/29/2021 Overview (09/19/2017): Added automatically from request for surgery [id number] Coronary artery disease invo lving coronary bypass graft of naknek heart with unstable angina pectoris ([facility]) 09/19/2017 09/29/2021 Overview (09/19/2017): Added automatically from request for surgery [id number] Immunizations Immunization Administration Dates Next Due Influenza, [...] on file Legal Sex Male 11:39 PM SEX OFFENDER TREATMENT PROFESSIONAL Gender Identity Not on file Sexual Orientation [...] 07/04/2024 9:06 AM CDT Plan of Treatment Not on file Medical Devices Implanted Type Area Account Officer Device Identifier Shelf Expiration Date Model / Serial / Lot [employer] Elvin [id number] Synergy 3.5mm 38mm 144cm Radiopaque 1 Access Port Inflation Lumen - [id number] Implanted:Qty: 1 on 08/31/2018 by Maruice Olivares MD at [facility] Stent N/A: Coronary [employer] Elvin 06/24/2020 [id number] / / [id number] [employer] Elvin [id number] Synergy 3mm 38mm 144cm Radiopaque 1 Access Port Inflation Lumen - [id number] Implanted:Qty: 1 on 08/31/2018 by Maurice Olivares MD at [facility] Stent N/A: Coronary [employer] Elvin 06/04/2020 [id number] / / [id number] Description:TACHO to RCA [employer] Elvin [id number] Synergy 4mm 38mm 144cm Radiopaque 1 Access Port Inflation Lumen - [id number] Implanted:Qty: 1 on 08/31/2018 by Maurice Olivares MD at [facility] Stent N/A: Coronary [employer] Elvin 06/18/2020 [id number] / / [id number] Description:TACHO to RCA [employer] Elvin Synergy Xd Monorail 3mm 20mm 144cm Delivery System 1 Access Port [id number] - S0 - [id number] Implanted:Qty: 1 on 07/04/2024 by Ellie Wesley MD at [facility] Stent [employer] Elvin 12/10/2025 [id number] / 0 / [id number] Ha[employer] V[employer] System Closure Repair Femoral Artery Suture Mediated Perclose Prostyle 10987-70 - S0 - [id number] Implanted:Qty: 1 on 07/04/2024 by Ellie Wesley MD at [facility] Vascular Closure Device [employer] 06/10/2026 [id number] / 0 / [id number] [employer] Elvin Angio-Seal Vip 6fr Closere Device [id number] - S0 - [id number] Implanted:Qty: 1 on 07/04/2024 by Ellie Wesley MD at [facility] Vascular Closure Device [employer] Elvin 01/28/2025 [id number] / 0 / [id number] [employer] Inc Device Vascular Closure Femoral Artery Bioabsorbable Dual Method Vascade 6-7fr Collagen [id number]-[id number] - S0 - [id number] Implanted:Qty: 1 on 07/04/2024 by Ellie Wesley MD at [facility] Vascular Closure Device [employer] Inc 05/20/2026 [id number] / 0 / [id number] [employer] X [id number] Resolute Natalbany 3.5mm 2.1-2.7fr 18mm 140cm Rapid Exchange - [id number] Implanted:Qty: 1 on 10/06/2017 by Malick Mcgregor MD at [facility] [employer] X 05/13/2019 [id number] / / [id number] [employer] X [id number] Resolute Basil 2.25mm 2.1-2.7fr 12mm 140cm Rapid Exchange - [id number] Implanted:Qty: 1 on 10/30/2017 by Malick Mcgregor MD at [facility] [employer] X 12/10/2018 [id number] / / [id number] [employer] Elvin [id number] Synergy 4mm 20mm 144cm Radiopaque 1 Access Port Inflation Lumen - [id number] Implanted:Qty: 1 on 04/11/2018 by Mailck Mcgregor MD at [facility] N/A: Coronary [employer] Elvin [id number] 10/25/2019 [id number] / / [id number] Description:SVG toRCA Procedures Procedure Name Priority Date/Time [...] 2:14 PM CDT 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 (CMS/HCC) (HCC) POCT LIPID PANEL Routine 05/07/2024 11:5 8 AM SEX OFFENDER TREATMENT PROFESSIONAL Hypercholesteremia HEMOGLOBIN A1C Routine 04/11/2018 5:27 AM SEX OFFENDER TREATMENT PROFESSIONAL from Last 3 Months or Most Recently Relevant to Health Maintenance Results * ECG 12 lead (07/04/2024 12:45 PM CDT) 07/04/2024 12:4 5 PM CDT Narrative [facility] - 07/05/2024 1:45 PM CDT Vent Rate: 59 bpm RR Interval: 1008 msec [place] Interval: 187 msec QRS Duration: 106 msec QT Interval: 446 msec QTC Interval: 444 msec P-R-T [place]: 57 - -11 - -7 degrees IMPRESSION: SINUS BRADYCARDIA WITH FIRST-DEGREE AV BLOCK WITH OCCASIONAL SUPRAVENTRICULAR PREMATURE COMPLEXES BORDERLINE PROLONGED QT INTERVAL MODERATE ST-DEPRESSION ABNORMAL ECG Electronically Signed By: Aubrey Webb MD mobap us Ellie Wesley MD ECG ORDERABLES Final Re sult [facility] * RIGHT LEFT HEART CATHETERIZATION CORONARY GRAFT WITH WITHOUT LEFT VENTRICULOGRAPHY ANGIOGRAM (07/04/2024 11:53 AM CDT) Anatomical Region Laterality Modality X-Ray Angiograph y Addenda Addendum by Ellie Wesley MD on 07/04/2024 12:50 PM CDT Images from the original result were not included. [facility] Cardiology [address] [place] [address], [address] [place] [address], [id number] Left Heart Catheterization Procedure Report Attending Physician: Ellie Wesley MD, [facility] Pre-Diagnosis: Aortic stenosis / CAD Post-Diagnosis: Same [...] vessel. Access:6F right femoral artery and 7 Bahraini Right Femoral Vein Catheter:JR Jatin 4, JL 4, Morgan, and AL 1 Injection:Left Main Trunk, Right [...] and draped in sterile fashion. A 6 Bahraini sheath was inserted in the Right Femoral Artery using the modified Seldinger techniquewith ultrasound guidance. A 7 Bahraini sheath was inserted into the right femoral vein using the modified Seldinger technique with ultrasound guidance. Seven Bahraini Morgan-Cornelio catheter was used to perform right heart [...] to takeoff of 1st diagonal and septal die finisher forging branches. 100% mid vessel occlusion. LCX: Large [...] TAVR Ellie Wesley MD 07/04/2024 12:23 PM [facility] PCI RISK CALCULATOR PCI INDICATIONS New Onset [...] Low Risk (<1% annual risk of or MA) [] Intermediate Risk (1-3% annual risk of or MA [] High Risk (>3% annual risk of or MA) LESION CHARACTERISTICS (HIGH RISK Type C LESIONS) [...] time, low range (07/04/2024 11:31 AM CDT) Pathologist [facility] ACT 321(H) 123 - 168 sec POC Performer [id number] [facility] Blood 07/04/2024 11:3 1 AM CDT 07/04/2024 11:31 AM CDT Ellie Wesley MD LAB POCT ORDERABLES - DE VICE Final Result [facility] [address] [place] [address] * ECG 12 lead (07/04/2024 9:16 AM CDT) 07/04/2024 9:16 AM CDT Narrative [facility] - 07/04/2024 10:27 PM CDT Vent Rate: 55 bpm RR Interval: 1080 msec [place] Interval: 235 msec QRS Duration: 113 msec QT Interval: 475 msec QTC Interval: 464 msec P-R-T [place]: 54 - -19 - -11 degrees IMPRESSION: SINUS BRADYCARDIA WITH FIRST DEGREE AV BLOCK INCOMPLETE RIGHT BUNDLE BRANCH BLOCK PROLONGED QT INTERVAL ABNORMAL ECG Electronically Signed By: Jace Elam MD [facility] Ellie Wesley MD ECG ORDERABLES Final Re sult [facility] [employer] [facility] * POCT glucose (07/04/2024 9:00 AM CDT) [facility] Glucose, POC 103 70 - 199 mg/dL Comment: For Glucose values <35 mg/dl when Hematocrit is >60 mg/dl,the test may not accurately detect significant hypoglycemia,and testing in the Laboratory should be considered if clinically indicated. POC Performer [id number] [facility] Blood 07/04/2024 9:00 AM CDT 07/04/2024 9:00 AM CDT us Ellie Wesley MD LAB POCT ORDERABLES - DE VICE Final Result [facility] [address] Department [place] [address] * (ABNORMAL) CBC with auto differential (06/10/2024 [...] - 06/11/2024 7:09 AM CDT Performed at: [address] [place] [id number] [employer]: Harjeet Leung PhD, Phone: [phone] Ellie Wesley MD LAB BLOOD ORDERABLES Fin al Result Performing Organization Address [facility]/ZIP Co de Phone Number [facility] - * (ABNORMAL) Basic metabolic panel (06/10/2024 12:00 PM CDT) [facility] Glucose 140(H) 70 - 99 mg/dL [facility] [...] - 06/11/2024 7:09 AM CDT Performed at: [address] [place] [id number] [employer]: Harjeet Leung PhD, Phone: [phone] Ellie Wesley MD LAB BLOOD ORDERABLES Fin al Result Performing Organization Address [facility]/ZIP Co de Phone Number [facility] - * TRANSTHORACIC ECHO (TTE) COMPLETE W DOPPLER/CF WO CONTRAST (05/27/2024 2:14 PM CDT) LV EF 70-75 % CONS SCIMAGE Anatomical Region Laterality Modality Ultrasound 05/27/2024 1:47 PM CDT Narrative 05/28/2024 7:50 PM CDT ECHOCARDIOGRAM Patient Name: VENKATESH KAHN : 1945 Study Date: 05/27/2024 1:47:20 PM Gender: M Tech: [facility] Ref Provider: ELLIE WESLEY Height(Cm): 188 BSA: 2.33 Weight(Kg): 104.33 BP: 131 / 65 Order Provider: ELLIE WESLEY - PROCEDURES: Echocardiographic Report: Transthoracic Echocardiogram with complete 2D, M-Mode, Spectral and Color Flow Doppler examination. INDICATIONS: I25.118 Atherosclerotic heart disease of naknek coronary artery with other forms of angina [...] regurgitation. Electronically Signed By: Kem Chapa MD [facility] 05/28/2024 7:49:59 PM CDT Procedure Note Kem Chapa MD - 05/28/2024 ECHOCARDIOGRAM Patient Name: VENKATESH KAHN : 1945 Study Date: 05/27/2024 1:47:20 PM Gender: M Tech: [facility] Ref Provider: ELLIE WESLEY Height(Cm): 188 BSA: 2.33 Weight(Kg): 104.33 BP: 131 / 65 Order Provider: ELLIE WESLEY - PROCEDURES: Echocardiographic Report: Transthoracic Echocardiogram with complete 2D, M-Mode, Spectral and ColorFlow Doppler examination. INDICATIONS: I25.118 Atherosclerotic heart disease of naknek coronary artery with otherforms of angina pectoris. [...] aorticregurgitation. Electronically Signed By: Kem Chapa MD [facility] 05/28/2024 7:49:59 PM CDT us Ellie Wesley MD CV ECHO PROCEDURES Final Result * (ABNORMAL) POCT lipid panel (05/07/2024 11:58 AM SEX OFFENDER TREATMENT PROFESSIONAL) HDL, POC 32 > - 40 mg/dL Triglycerides, POC 206(A) < - 150 mg/dL LDL Cholesterol POC 27 < - 100 mg/dL Cholesterol Total, POC <100 < - 200 mg/dL Capillary blood 05/07/2024 1 1:58 AM SEX OFFENDER TREATMENT PROFESSIONAL us Ellie Wesley MD POINT OF CARE TEST ORDER KELLY Final Result * (ABNORMAL) Hemoglobin A1c (04/11/2018 5:27 AM SEX OFFENDER TREATMENT PROFESSIONAL) Hgb A1C 7.8(H) 4.0 - 5.6 % [facility] Estimated Average Glucose 177 mg/dL [facility] Comment: The ADA recommends reporting an estimated Average Glucose (eAG) with all Hemoglobin A1c results using the equation derived from a study of 507 normal and diabetic adults. Minority populations were underrepresented and children were not included. (Diabetes Care 31:5955-2324, 2008). The eAG is not equivalent to a fasting glucose. Blood specimen (specimen) 04/11/2018 5:27 AM SEX OFFENDER TREATMENT PROFESSIONAL 04/11/2018 5:53 AM SEX OFFENDER TREATMENT PROFESSIONAL Narrative [facility] - 04/11/2018 6:10 AM SEX OFFENDER TREATMENT PROFESSIONAL Arley Garcia MD LAB BLOOD ORDERABLES Final Res ult [facility] [address] Department [place] [address] from Last 3 Months or Most Recently Relevant to Health Maintenance Insurance [facility] MEDICARE [facility]ANT[facility] Address: [address] [address] [place] [address] [employer] MEDICARE ADVANTAGE [facility] Address: [address] [address] [place] [address] [facility] MEDICARE ADVANTAGE [facility] Address: [facility] [address] [place] [address] Advance Directives For more information, please contact: [phone] * Full Code (Latest Code Status on [...] 10:42 AM 10/31/2017 12:13 PM Care Teams Entry Level Civil Engineer Relationship Specialty Start Date End Date Mikey Brumfield NP [address] [facility] [address] [place] [address] PCP - General Nurse Practitioner 06/20/24 Malick Mcgregor MD [address] [place] [address] Consulting Physician Cardiology 04/12/18
--- OUTSIDE RECORDS SUMMARY | 2024-07-10 07:46 | XMS_ITS | Encounter Summary ---
Author Organization [facility] Healthcare Address [address] [place] [address] Care Team Providers Care Cvicu Rn Name Role Phone Malick Mcgregor MD Unavailable [phone] Christiano Enamorado MD Primary Care Provider [phone] Mikey Brumfield NP Primary Care Provider [phone] Reason for Visit * Reason Onset Date Comments Test Results 06/04/2024 Encounter Details Date Type Department Care Team (Late st Contact Info) Description 06/04/2024 Results Follow-Up [facility] Cardiology [address] [facility] [address] [place] [address] Emir Wesley MD [address] [facility] [address] [place] [address] Social History Tobacco Use Types Packs/Day Years Used Date Smoking Tobacco: Former Smokeless Tobacco: Never Comments:smoked only during service quit 1965 Alcohol Use Standard Drinks/Week Comments No 0 (1 standard drink = 0.6 oz pur e alcohol) Sex and Gender Information Value Date Recorded Sex Assigned at Not on file Legal Sex Male 11:39 PM TATTOOER Gender Identity Not on file Sexual Orientation [...] documented in this encounter Plan of Treatment Not on file documented as of this encounter Visit Diagnoses Not on filedocumented in this encounter Care Teams Cvicu Rn Relationship Specialty Start Date End Date Christiano Enamorado MD [address] [address] PCP - General Family Medicine 11/30/21 06/19/24 Mikey Brumfield NP [address] [facility] [address] [address] PCP - General Nurse Practitioner 06/20/24 Malick Mcgregor MD [address] [facility] [address] [place] [address] Consulting Physician Cardiology 04/12/18 documented as of this encounter
--- OUTSIDE RECORDS SUMMARY | 2024-07-10 07:46 | XMS_ITS | Clinical Summary ---
Author Organization [facility] Address [address] [place] [address] Care Team Providers Care Lap Machine Operator Name Role Phone Isaiah Connor MD Primary Care Provider Whitley potter Source Comments [facility],non-owned Affiliates and Associated Physician Practices is amultiple site organization consisting of ambulatory clinics and hospital sitesin [place], [place], [place] and [place]. This disclosure is being madepursuant to the Care Everywhere program and may not contain all information available regarding this patient. Last updated 17.[facility] [employer] Allergies Active Allergy Reactions Criticality Noted Date [...] on file Legal Sex Male 6:16 AM NICKER Gender Identity Not on file Sexual Orientation [...] patient's age to complete this topic Insurance [facility] [employer] MEDICARE ADV Care Teams Lap Machine Operator Relationship Specialty Start Date End Date Isaiah Connor MD PCP - General 06/28/17
--- OUTSIDE RECORDS SUMMARY | 2024-07-10 07:46 | XMS_ITS | Continuity of Care Document ---
Author Name [facility] Organization [facility] Care Team Providers Care Esthetician/Skin Therapist Name Role Phone [facility] Unavailable Unavailable Problems Combined list of problems from [facility] and [facility] facilities. It does not include entries that were removed or entered in error. 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 Active Condition [facility] Foot Sprain/Strain Active Condition [facility] Hypertension Active Condition [facility] Hypertriglyceridemia * (ICD-9-CM 272.1) Active Condition [facility] Intermittent Claudication * (ICD-9-CM 443.9) Active Condition [facility] Obesity * (ICD-9-CM 278.00) Active Condition [facility] Peripheral Neuropathy (ICD-9-CM 355.9) Active Condition [facility] Psoriasis * (ICD-9-CM 696.1) Active Condition [facility] Medications Combined list of outpatient medications from [facility] and [facility] facilities.Medications provided include 1) outpatient medications from the last 15 months, and 2) patient-reported medications. Medication Details Route Status Patient Instructions Prescription Expires Prescription Number Last Dispense Date Ordering Provider Order Date Order Qty Source ALLOPURINOL 100MG TAB TAKE ONE TABLET BY MOUTH ONCE A DAY ORAL ACTIVE LUCILLE ORTEGA 2009 [facility] MAXIMO Wilkins ASPIRIN 81MG TAB,EC TAKE ONE TABLET BY MOUTH QD ORAL ACTIVE LUCILLE ORTEGA 2008 [facility] MAXIMO Wilkins BETAMETHASO NE DIPROPIONAT E CREAM,TOP APPLY TO AFFECTED AREA(S) THREE TIMES A DAY TOPICA L ACTIVE RITTER-D[facility] COL[facility] 0.6MG TAB TAKE ONE TABLET BY MOUTH ONCE A DAY ORAL ACTIVE RITTER-DARIO LUCILLE BUENO 2009 [facility] DIGOXIN 0.25MG TAB TAKE ONE TABLET BY MOUTH ONCE A DAY ORAL ACTIVE RITTER-LUCILLE TANNER 2008 [facility] GABAPENTIN 400MG CAP TAKE 1 CAPSULE BY MOUTH THREE TIMES A DAY ORAL ACTIVE RITTER-DARIO LUCILLE BUENO 2009 [facility] GLIPIZIDE 5MG TAB TAKE ONE-HALF TABLET BY MOUTH TWO TIMES A DAY BEFORE MEALS ORAL ACTIVE RIYA-LUCILLE TANNER 2008 [facility] HYDROCHLORO THIAZIDE 25MG TAB TAKE ONE TABLET BY MOUTH EVERY MORNING ORAL ACTIVE RIYA-LUCILLE TANNER 2008 [facility] LISINOPRIL 40MG TAB TAKE ONE TABLET BY MOUTH ONCE A DAY ORAL ACTIVE RITTER-LUCILLE TANNER 2008 [facility] METFORMIN HCL 1000MG TAB TAKE ONE TABLET BY MOUTH AT BEDTIME ORAL ACTIVE RITTER-LUCILLE TANNER 2008 [facility] OMEGA-3-ACI D ETHYL ESTERS 1000MG CAP,ORAL TAKE 1 CAPSULE BY MOUTH TWICE A DAY ORAL ACTIVE RIYA-LUCILLE TANNER 2008 [facility] ROSUVASTATI N CA 10MG TAB TAKE ONE-HALF TABLET BY MOUTH EVERY EVENING ORAL ACTIVE RITTER-LUCILLE TANNER 2008 [facility] Allergies, Adverse Reactions, Alerts Combined list of allergies from [facility] of Defense and [facility] facilities. It does not include entries that were removed or entered in error. Substance Category Reaction Severity Reaction type Status Date Reported Comments Source NIASPAN Propensity to adverse reactions to drug (finding) Delirium, Flushing active 8 [facility] PENICILLIN Propensity to adverse reactions to drug (finding) Urticaria active 6 [facility] PRAVASTATIN Propensity to adverse reactions to drug (finding) Muscle pain MILD active 9 [facility] SIMVASTATIN Propensity to adverse reactions to drug (finding) Muscle pain, Muscle weakness active 7 [facility] Immunizations Combined list of available immunizations from the Department of [facility] and [facility] facilities. Immunization Series Date Given Administered By Site Reaction Lot Number CVX Code Drug Brickmason Supervisor Status Comments Source INFLUENZA, UNSPECIFIED FORMULATION 2008 88 complet ed [facility] INFLUENZA, UNSPECIFIED FORMULATION 2007 88 complet ed [facility] INFLUENZA, UNSPECIFIED FORMULATION 2006 88 complet ed [facility] PNEUMOCOCCAL, UNSPECIFIED FORMULATION 2006 109 complet ed [facility] TD(ADULT) UNSPECIFIED FORMULATION 2005 139 complet ed Left Deltoid [facility] INFLUENZA, UNSPECIFIED FORMULATION 2005 REY CARDOZA 88 comple t ed [facility] Encounters Combined list of: 1) Encounters from Department of [facility] Affairs facilities going backup to the last 18 months, not all [place] inpatient encounters are included; 2) Encounters from the [facility] facilities going backup to 280 months. Location Location Details Encounter Type Encounter Number Reason For Visit Attending Provider ADM Date DC Date Status Disposition Source [facility] Outpatient Encounter [id number] 05/29 [facility] Social History Combined list of available smoking, tobacco, and other social history from Department of [facility] and [facility] facilities. Social History Type Response Date Comment Sourc e Tobacco smoking status NHIS QUIT TOBACCO >7 YEARS AGO 02/13/2006 [facility]
--- OUTSIDE RECORDS SUMMARY | 2024-07-10 07:46 | XMS_ITS | Clinical Summary ---
Author Organization [facility] Address [facility] [place] [address] Care Team Providers Care Burr Mill Operator Name Role Phone None, Provider MD Primary Care Provider Unavaila ble Allergies Active Allergy Reactions Criticality Noted Date Comments Penicillins Rash Low 06/26/2024 Encounters Date Type Department Care Team Description 06/26/2024 1:58 PM CDT - 06/26/2024 7:06 PM CDT Emergency [facility] [place] [address] Masoud Gilmore, None, Provider, Dizziness Discharge Disposition: Home or Self Care (Routine Discharge) 06/26/2024 Travel from Last 3 Months Social History Tobacco Use Types Packs/Day Years Used Date Smoking Tobacco: Never Smokeless Tobacco: Never Tobacco Cessation:Counseling Given: Not Answered Alcohol Use Standard Drinks/Week Comments Not Currently 0 (1 standard drink = 0.6 oz pur e alcohol) Sex and Gender Information Value Date Recorded Sex Assigned at Male 06/26/2024 1:40 PM CDT Legal Sex Male 1:21 PM CDT Gender Identity Not on file Sexual Orientation Not on file Last Filed Vital Signs Vital Sign Reading Time Taken Comments Blood Pressure 127/66 06/26/2024 4:30 PM CDT Pulse 65 06/26/2024 1:25 PM CDT Temperature 37 C (98.6 F) 06/26/2024 1:25 PM CDT Respiratory Rate 26 06/26/2024 1:25 PM CDT Oxygen Saturation 94% 06/26/2024 4:30 PM CDT Inhaled Oxygen Concentration - - Weight 101.6 kg (224 lb) 06/26/2024 1:31 PM CDT Height 188 cm (6' 2 ) 06/26/2024 1:31 PM CDT Body Mass Index 28.76 06/26/2024 1:31 PM CDT Plan of Treatment Health Maintenance Due Date Last Done Comments Pneumococcal Vaccine: 50+ Years (1 of 1 - PCV) 09/08/1993 Zoster Vaccines (1 of 2) 09/08/1993 RSV Immunization or 60+ Years (1 - 1-dose 75+ series) 09/08/2018 COVID-19 Vaccine (4 - 2023-2 5 season) 2023 12/27/2022, 01/20/2022, 05/21/2020 DTaP, Tdap and Td Vaccines ( 2 - Td or Tdap) 08/30/2031 08/29/2021, 02/13/2006 Meningococcal B Vaccine Aged Out No l onger eligible based on patient's age to complete this topic Meningococcal Vaccine Aged Out No vianney tosin eligible based on patient's age to complete this topic RSV Immunizations Under 20 Months Aged Out No longer eligible b ased on patient's age to complete this topic Procedures Procedure Name Priority Date/Time Associated Diagnosis Comments ECG 12-LEAD Routine 06/26/2024 2:29 PM CDT ELECTROCARDIOGRAM REPORT Routine 025 2:[address] HEAD WO CON STAT 06/26/2024 2:18 PM CDT TSH W/REFLEX STAT 06/26/2024 2:07 PM CDT PRO-BRAIN NATRIURETIC PEPTIDE STAT 06/26/2024 2:07 PM CDT MAGNESIUM STAT 06/26/2024 2:07 PM CDT TROPONIN, QUANT STAT 06/26/2024 2:07 PM CDT PROTHROMBIN TIME, VENOUS STAT 025 2:07 PM CDT PARTIAL THROMBOPLASTIN TIME,PTT STAT 06/26/2024 2:07 PM CDT COMPREHENSIVE METABOLIC PANEL STAT 06/26/2024 2:07 PM CDT CBC W/DIFF AUTOMATED STAT 06/26/2024 2:07 PM CDT XR CHEST PORTABLE STAT 06/26/2024 1:5 8 PM CDT from Last 3 Months Results * ECG 12 lead (06/26/2024 2:29 PM CDT) 06/26/2024 2:29 PM CDT Narrative [facility] - 06/26/2024 9:[address] 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 [address] [place] [address] Test Date: 2024-06-26 Pat Name: [facility] Department: Room: EXAM12 Gender: M Farm Operations Manager: [id number] : 1945 Requested By: KIMBERLY MANZO Order Number: [id number] Reading MD: Lenny Redman Measurements Intervals [place] Rate: 63 P: -25 UT: 221 QRS: -2 QRSD: 106 T: -3 QT: 450 QTc: 464 Interpretive Statements SINUS RHYTHM WITH FIRST DEGREE AV BLOCK INCOMPLETE RIGHT BUNDLE BRANCH BLOCK [90+ ms QRS DURATION, TERMINAL R IN V1/V2, 40+ ms S IN I/aVL/V4/V5/V6] MODERATE ST DEPRESSION [0.05+ mV ST DEPRESSION] No previous ECG available for comparison us Kimberly MATHEW ECG ORDERABLES Final Result [facility] RAD * EKG Reading (06/26/2024 2:29 PM CDT) Masoud Camacho DO - 06/26/2024 2:29 PM CDT Masoud Gilmore DO 06/26/2024 7:28 PM EKG Reading Date/Time: 06/26/2024 2:29 PM Performed by: Masoud Gilmore DO Authorized by: Masoud Gilmore DO Interpreted by ED physician Rhythm: sinus rhythm Rate: normal BPM: 63 QRS axis: normal Conduction: conduction normal Conduction: incomplete RBBB ST Segments: ST segments normal Clinical impression: abnormal ECG Comments: Nonspecific T wave changes Masoud Gilmore DO [facility] Final Result * CT HEAD WO CON (06/26/2024 2:18 PM CDT) Anatomical Region Laterality Modality Head Computed Tomogra phy 06/26/2024 2:29 PM CDT Impressions 06/26/2024 2:34 PM CDT IMPRESSION: 1. No definite CT evidence for acute intracranial abnormality. 2. Chronic senescent changes. Please note that CT has limited sensitivity for the detection of acute ischemia Referred By: Interpreted By: Dhruv Storm MD, 06/26/2024 2:29 PM Narrative 06/26/2024 2:34 PM CDT [place] [address] EXAMINATION: CT of the head CLINICAL HISTORY: Dizziness COMPARISON: None TECHNIQUE: CT examination of the head without contrast was performed with axial images obtained. A radiation dose lowering technique was used for this procedure, which may include, but is not limited to, dose reduction technique, automated exposure control, the use of iterative reconstruction, ALARA (As Low As Reasonably Achievable) techniques, and Image Gently techniques. FINDINGS: There is no evidence of acute intracranial hemorrhage, abnormal extra-axial collections, intracranial mass effect, or midline shift. There is mild to moderate volume loss with enlargement of the ventricles and extra-axial/subarachnoid spaces. There are scattered bilateral foci of periventricular and deep white matter hypoattenuation, probably related to chronic small vessel ischemic disease. Atherosclerotic calcifications of the intracranial arterial vasculature are evident. There is no definite CT evidence to suggest acute territorial infarction. The calvarium is unremarkable, without evidence of acute fracture. The visualized mastoid air cells, paranasal sinuses, and orbits are grossly unremarkable. Procedure Note Dhruv Storm MD - 06/26/[address] [address] EXAMINATION: CT of the head CLINICAL HISTORY: Dizziness COMPARISON: None TECHNIQUE: CT examination of the head without contrast was performed withaxial images obtained. A radiation dose lowering technique was used forthis procedure, which may include, but is not limited to, dose reductiontechnique, automated exposure control, the use of iterativereconstruction, ALARA (As Low As Reasonably Achievable) techniques, andImage Gently techniques. FINDINGS: There is no evidence of acute intracranial hemorrhage, abnormalextra-axial collections, intracranial mass effect, or midline shift. Thereis mild to moderate volume loss with enlargement of the ventricles andextra-axial/subarachnoid spaces. There are scattered bilateral foci ofperiventricular and deep white matter hypoattenuation, probably related tochronic small vessel ischemic disease. Atherosclerotic calcifications ofthe intracranial arterial vasculature are evident. There is no definite CTevidence to suggest acute territorial infarction. The calvarium isunremarkable, without evidence of acute fracture. The visualized mastoidair cells, paranasal sinuses, and orbits are grossly unremarkable. IMPRESSION: 1. No definite CT evidence for acute intracranial abnormality. 2. Chronic senescent changes. Please note that CT has limited sensitivity for the detection of acuteischemia Referred By: Interpreted By: Dhruv Storm MD, 06/26/2024 2:[address] Final Result * TSH W/REFLEX (06/26/2024 2:07 PM CDT) Pathologist [facility] TSH 2.980 0.358 - 3.74 uIU/ML 06/26/2024 3:41 PM CDT [facility] Comment: HIGH DOSES OF BIOTIN MAY INTERFERE WITH THIS TEST RESULT. CORRELATION TO CLINICAL HISTORY AND PRESENTATION RECOMMENDED. FREE T4 NOT INDICATED 06/26/2024 2:07 PM CDT Masoud Gilmore DO LABORATORY Final Res ult [facility] [address] [place] [address], [place] [phone] * (ABNORMAL) PRO-BRAIN NATRIURETIC PEPTIDE (06/26/2024 2:07 PM CDT) Pathologist [facility] PRO-B TYPE NATRIURETIC PEPTIDE 832(H) <450 PG/ML 06/26/2024 3:41 PM CDT [facility] Comment: CUT POINTS ESTABLISHED BY [employer] ON NT PROBNP (ICON) STUDY (2006). AGE INDEPENDENT: <300 PG/ML HAS A 99% NEGATIVE PREDICTIVE VALUE FOR EXCLUDING ACUTE CHF <50 YEARS: >450 PG/ML IS CONSISTENT WITH ACUTE CHF 50-75 YEARS: >900 PG/ML IS CONSISTENT WITH ACUTE CHF >75 YEARS: >1800 PG/ML IS CONSISTENT WITH ACUTE CHF IN PATIENTS WITH RENAL INSUFFICIENCY (GFR <60), >1200 PG/ML YIELDS A DIAGNOSTIC SENSITIVITY AND SPECIFICITY OF 89% AND 72% FOR ACUTE CHF. 06/26/2024 2:07 PM CDT Masoud Gilmore DO LABORATORY Final Res ult Performing Organization Address [facility] Co de Phone Number [facility] [address] [place] [address], [place] [phone] * PARTIAL THROMBOPLASTIN TIME,PTT (06/26/2024 2:07 PM CDT) PTT 33.8 25.1 - 36.5 SEC 06/26/2024 2:44 PM CDT [facility] 06/26/2024 2:07 PM CDT Kimberly MATHEW LABORATORY Final Result Performing Organization Address [facility] de Phone Number [facility] [address] [place] [address], [place] [phone] * (ABNORMAL) PROTIME/INR, VENOUS (06/26/2024 2:07 PM CDT) PROTIME 18.7(H) 10.2 - 12.9 SEC 06/26/2024 2:44 PM CDT [facility] INR 1.7 06/26/2024 2:44 PM CDT [facility] Comment: Recommended INR Therapeutic Goals: 2.0-3.0 Routine Therapy 2.5-3.5 Mechanical Prosthetic Valves (High Risk) 06/26/2024 2:07 PM CDT Kimberly MATHEW LABORATORY Final Result Performing Organization Address City/[facility] Co de Phone Number [facility] [address] [place] [address], [place] [phone] * (ABNORMAL) COMPREHENSIVE METABOLIC PANEL (06/26/2024 2:07 PM CDT) [facility] GLUCOSE 243(H) 70 - 99 MG/DL 06/26/2024 2:50 PM CDT [facility] BUN 15 7 - 18 MG/DL 06/26/2024 2:50 PM CDT [facility] CREATININE S/P/B 1.48(H) 0.7 - 1.3 MG/DL 06/26/2024 2:50 PM CDT [facility] SODIUM S/P/B 138 136 - 145 MMOL/L 06/26/2024 2:50 PM CDT [facility] POTASSIUM S/P/B 3.9 3.5 - 5.1 MMOL/L 06/26/2024 2:50 PM CDT [facility] CHLORIDE S/P/B 109 97 - 115 MMOL/L 06/26/2024 2:50 PM CDT [facility] CO2 20.5(L) 21 - 32 MMOL/L 06/26/2024 2:50 PM CDT [facility] CALCIUM S/P/B 8.3(L) 8.5 - 10.1 MG/DL 06/26/2024 2:50 PM CDT [facility] BILIRUBIN TOTAL S/P/B 0.7 0.2 - 1.2 MG/DL 06/26/2024 2:50 PM CDT [facility] Comment: THIS ASSAY IS NOT RECOMMENDED FOR PATIENTS UNDERGOING TREATMENT WITH ELTROMBOPAG DUE TO THE POTENTIAL FOR FALSELY ELEVATED RESULTS. TOTAL PROTEIN S/P/B 6.8 6.4 - 8.2 G/DL 06/26/2024 2:50 PM CDT [facility] ALBUMIN S/P/B 3.7 3.4 - 5.0 G/DL 06/26/2024 2:50 PM CDT [facility] AST 28 15 - 37 U/L 06/26/2024 2:50 PM CDT [facility] ALT 19 16 - 60 U/L 06/26/2024 2:50 PM CDT [facility] ALKALINE PHOSPHATASE S/P/B 38(L) 50 - 136 U/L 06/26/2024 2:50 PM CDT [facility] ANION GAP 8.5 2 - 10 MMOL/L 06/26/2024 2:50 PM CDT [facility] BUN CREATININE RATIO 10.1 6 - 26 06/26/2024 2:50 PM CDT [facility] A/G RATIO 1.2 1.0 - 2.0 RATIO 06/26/2024 2:50 PM CDT [facility] GFR ESTIMATE 48(L) >90 ML/MIN/1.7 3 M2 06/26/2024 2:50 PM CDT [facility] Comment: NOTE: eGFR is not calculated for patients <18 years of age or gender unknown. This is an estimated GFR calculation using the new CKD EPI creatinine equation without race and so does not require a correction factor for race. This estimated GFR should not be used for calculating drug doses. 06/26/2024 2:07 PM CDT us Kimberly MATHEW LABORATORY Final Result [facility] [address] [place] [address], [place] [phone] * (ABNORMAL) CBC W/DIFF AUTOMATED (06/26/2024 2:07 PM CDT) WBC 5.19 4.5 - 11.0 x10'3/uL 06/26/2024 2:23 PM CDT [facility] RBC 4.31(L) 4.70 - 6.10 x10'6/uL 06/26/2024 2:23 PM CDT [facility] HGB 12.9(L) 14.0 - 18.0 G/DL 06/26/2024 2:23 PM CDT [facility] HCT 39.4(L) 43.0 - 54.0 % 06/26/2024 2:23 PM CDT [facility] MCV 91.4 80.0 - 94.0 FL 06/26/2024 2:23 PM CDT [facility] MCH 29.9 27.0 - 31.0 PG 06/26/2024 2:23 PM CDT [facility] MCHC 32.7 32.0 - 36.0 G/DL 06/26/2024 2:23 PM CDT [facility] RDW 14.2 11.5 - 14.5 % 06/26/2024 2:23 PM CDT [facility] PLT 177 130 - 400 x10'3/uL 06/26/2024 2:23 PM CDT [facility] MPV 9.7 9.3 - 12.2 FL 06/26/2024 2:23 PM CDT [facility] DIFFERENTIAL TYPE AUTOMATED DIFFERENTIAL 06/26/2024 2:23 PM CDT [facility] NEUTROPHILS % 57.8 % 06/26/2024 2:23 PM CDT [facility] LYMPHOCYTES % 30.4 % 06/26/2024 2:23 PM CDT [facility] MONOCYTES % 7.3 % 06/26/2024 2:23 PM CDT [facility] EOSINOPHILS 3.1 % 06/26/2024 2:23 PM CDT [facility] BASOPHILS 0.8 % 06/26/2024 2:23 PM CDT [facility] IMMATURE GRANS % 0.6 % 06/27/19 2:23 PM CDT [facility] ABS. NEUTROPHILS 3.00 1.80 - 7.70 x10'3/uL 06/26/2024 2:23 PM CDT [facility] ABS. LYMPHOCYTES 1.58 1.00 - 4.80 x10'3/uL 06/26/2024 2:23 PM CDT [facility] ABS. MONOCYTES 0.38 0.30 - 0.82 x10'3/uL 06/26/2024 2:23 PM CDT [facility] ABS. EOSINOPHILS 0.16 0.04 - 0.54 x10'3/uL 06/26/2024 2:23 PM CDT [facility] ABS. BASOPHILS 0.04 0.01 - 0.08 x10'3/uL 06/26/2024 2:23 PM CDT [facility] ABS. IMMATURE GRANULOCYTES 0.03 0.00 - 0.49 x10'3/uL 06/26/2024 2:23 PM CDT [facility] 06/26/2024 2:07 PM CDT us Kimberly MATHEW LABORATORY Final Result [facility] [address] [place] [address], * TROPONIN, QUANT (06/26/2024 2:07 PM CDT) TROPONIN I HIGH SENSITIVITY 15 <79 ng/L 06/26/2024 2:50 PM CDT [facility] Comment: HIGH DOSES OF BIOTIN, TROPONIN-SPECIFIC AUTOANTIBODIES, AND ANTIBODY THERAPY CONTAINING HAMA MAY INTERFERE WITH THIS TEST RESULT. CORRELATION TO CLINICAL HISTORY AND PRESENTATION RECOMMENDED. 06/26/2024 2:07 PM CDT Kimberly Manzo PA LABORATORY Final Result Performing Organization Address City/[facility]/ZIP Co de Phone Number [facility] [address] [place] [address], [place] [phone] * (ABNORMAL) MAGNESIUM (06/26/2024 2:07 PM CDT) MAGNESIUM 1.5(L) 1.8 - 2.4 MG/DL 06/26/2024 3:41 PM CDT [facility] 06/26/2024 2:07 PM CDT Masoud Gilmore DO LABORATORY Final Res ult Performing Organization Address [facility] Co de Phone Number [facility] [address] [place] [address], [place] [phone] * XR CHEST PORTABLE (06/26/2024 1:58 PM CDT) Anatomical Region Laterality Modality Chest Radiographic Sera ging 06/26/2024 2:03 PM CDT Impressions 06/26/2024 2:03 PM CDT IMPRESSION: No acute findings Ordered By: KIMBERLY MANZO Interpreted By: Matty Gandhi MD, 06/26/2024 2:03 PM Narrative 06/26/2024 2:03 PM CDT [facility] [address] [place], [place] [address] SINGLE VIEW OF THE CHEST Clinical history: Dizziness Comparison: None A single view of the chest demonstrates the cardiac silhouette to be at the upper limits of normal in size. Sternotomy changes are evident. The pulmonary vessels are normally distributed. The Lungs are clear. No consolidations or effusions are seen. Procedure Note Matty Gandhi MD - 06/26/2024 [facility] [address] [place], [place] [address] SINGLE VIEW OF THE CHEST Clinical history: Dizziness Comparison: None A single view of the chest demonstrates the cardiac silhouette to be atthe upper limits of normal in size. Sternotomy changes are evident. Thepulmonary vessels are normally distributed. The Lungs are clear. Noconsolidations or effusions are seen. IMPRESSION: No acute findings Ordered By: KIMBERLY MANZO Interpreted By: Matty Gandhi MD, 06/26/2024 2:03 PM Kimberly Manzo [facility] Final Result from Last 3 Months Insurance [facility] Care Teams [employer] Relationship Specialty Start Date End Date None, Provider, PCP - General UNKNOWN PHYSICIAN SPECIALTY 06/26/24
== END 2024-07-10 07:41 | disposition home or self-care (01) ==
PROVIDERS: PCP Nurse Practitioner; Visit Provider Otolaryngology
DX: H90.3 Sensorineural hearing loss, bilateral (principal)
CPT/HCPCS: 92557; 92567

== ENCOUNTER 2024-08-07 12:51 | Outpatient (CLI) | payer MEDICARE, MEDICAID, SELFPAY ==
--- OUTSIDE RECORDS SUMMARY | 2024-08-07 12:56 | XMS_ITS | Continuity of Care Document ---
Author Organization [facility] Address [address] [place] [address] Phone Care Team Providers Care Retail Advertising Sales Manager Name Role Phone Mikey Ellis MD Unavailable [...] Diagnoses Date Provider Providers Copied on Encounter [employer], [address], [place], [place], [id number], tel:[phone] [facility] No Information Caleb Jensen. [address], [place], [place], [id number], [place]. tel:[phone] Referring Provider: Aubrey Davenport DO, [address], [place], [address]. tel:[phone] [facility], [address], [place], [place], [id number], tel:[phone] [facility] No Information Jeff Buckley. [address], [place], [place], [id number], [place]. tel:[phone] Referring Provider: Aubrey Davenport DO, [address], [place], [address]. tel:[phone] Family History Family Member Type Diagnosis Age At Onset No Information Payers Payer name Insurance type Covered republican ID Authoriza tibravo(s) [facility] MDCR COMPLETE HMO MB [id number] Social History Type Description Quantity Date Captured [...]
--- OUTSIDE RECORDS SUMMARY | 2024-08-07 12:56 | XMS_ITS | Continuity of Care Document ---
Author Name [facility] Organization [facility] Care Team Providers Care Enterprise Systems Architect Name Role Phone [facility] Unavailable Unavailable Problems Combined list of problems from [facility] and [facility] facilities. It does not include entries that were removed or entered in error. 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 [facility] Foot Sprain/Strain Active Condition [facility] Hypertension Active Condition [facility] Hypertriglyceridemia * (ICD-9-CM 272.1) Active Condition [facility] Intermittent Claudication * (ICD-9-CM 443.9) Active Condition [facility] Obesity * (ICD-9-CM 278.00) Active Condition [facility] Peripheral Neuropathy (ICD-9-CM 355.9) Active Condition [facility] Psoriasis * (ICD-9-CM 696.1) Active Condition [facility] Medications Combined list of outpatient medications from [facility] and [facility] facilities.Medications provided include 1) outpatient medications from the last 15 months, and 2) patient-reported medications. Medication Details Route Status Patient Instructions Prescription Expires Prescription Number Last Dispense Date Ordering Provider Order Date Order Qty Source ALLOPURINOL 100MG TAB TAKE ONE TABLET BY MOUTH ONCE A DAY ORAL ACTIVE LUCILLE ORTEGA 2009 [facility] MAXIMO Wilkins ASPIRIN 81MG TAB,EC TAKE ONE TABLET BY MOUTH QD ORAL ACTIVE LUCILLE ORTEGA 2008 [facility] MAXIMO Wilkins BETAMETHASO NE DIPROPIONAT E CREAM,TOP APPLY TO AFFECTED AREA(S) THREE TIMES A DAY TOPICA L ACTIVE RITTER-DARIO LUCILLE BUENO 2008 [facility] COLCHICINE 0.6MG TAB TAKE ONE TABLET BY MOUTH ONCE A DAY ORAL ACTIVE RITTER-DARIO LUCILLE BUENO 2009 [facility] DIGOXIN 0.25MG TAB TAKE ONE TABLET BY MOUTH ONCE A DAY ORAL ACTIVE RITTER-LUCILLE TANNER 2008 [facility] GABAPENTIN 400MG CAP TAKE 1 CAPSULE BY MOUTH THREE TIMES A DAY ORAL ACTIVE RITTER-DARIO LUCILLE BUENO 2009 [facility] N GLIPIZIDE 5MG TAB TAKE ONE-HALF TABLET BY MOUTH TWO TIMES A DAY BEFORE MEALS ORAL ACTIVE RIYA-LUCILLE TANNER 2008 [facility] HYDROCHLORO THIAZIDE 25MG TAB TAKE ONE TABLET BY MOUTH EVERY MORNING ORAL ACTIVE RIYA-LUCILLE TANNER 2008 [facility] LISINOPRIL 40MG TAB TAKE ONE TABLET BY MOUTH ONCE A DAY ORAL ACTIVE RITTER-LUCILLE TANNER 2008 [facility] N METFORMIN HCL 1000MG TAB TAKE ONE TABLET BY MOUTH AT BEDTIME ORAL ACTIVE RITTER-LUCILLE TANNER 2008 [facility] N OMEGA-3-ACI D ETHYL ESTERS 1000MG CAP,ORAL TAKE 1 CAPSULE BY MOUTH TWICE A DAY ORAL ACTIVE RIYA-LUCILLE TANNER 2008 [facility] DIV[facility] N ROSUVASTATI N CA 10MG TAB TAKE ONE-HALF TABLET BY MOUTH EVERY EVENING ORAL ACTIVE RITTER-LUCILLE TANNER 2008 [facility] Allergies, Adverse Reactions, Alerts Combined list of allergies from Department of Defense and [facility] Affairs facilities. It does not include entries that were removed or entered in error. Substance Category Reaction Severity Reaction type Status Date Reported Comments Source NIASPAN Propensity to adverse reactions to drug (finding) Delirium, Flushing active 8 [facility] PENICILLIN Propensity to adverse reactions to drug (finding) Urticaria active 6 [facility] PRAVASTATIN Propensity to adverse reactions to drug (finding) Muscle pain MILD active 9 [facility] SIMVASTATIN Propensity to adverse reactions to drug (finding) Muscle pain, Muscle weakness active 7 [facility] Immunizations Combined list of available immunizations from the Department of [facility] and [facility] facilities. Immunization Series Date Given Administered By Site Reaction Lot Number CVX Code Drug Integrated Specialist Status Comments Source INFLUENZA, UNSPECIFIED FORMULATION 2008 88 complet ed [facility] INFLUENZA, UNSPECIFIED FORMULATION 2007 88 complet ed [facility] INFLUENZA, UNSPECIFIED FORMULATION 2006 88 complet ed [facility] PNEUMOCOCCAL, UNSPECIFIED FORMULATION 2006 109 complet ed [facility] TD(ADULT) UNSPECIFIED FORMULATION 2005 139 complet ed Left Deltoid [facility] INFLUENZA, UNSPECIFIED FORMULATION 2005 REY CARDOZA 88 comple t ed [facility] Encounters Combined list of: 1) Encounters from Department of [facility] Affairs facilities going backup to the last 18 months, not all [place] inpatient encounters are included; 2) Encounters from the Department [facility] facilities going backup to 280 months. Location Location Details Encounter Type Encounter Number Reason For Visit Attending Provider ADM Date DC Date Status Disposition Source [facility] Outpatient Encounter [id number] 05/29 [facility] Social History Combined list of available smoking, tobacco, and other social history from Department of [facility] and [facility] facilities. Social History Type Response Date Comment Sourc e Tobacco smoking status NHIS QUIT TOBACCO >7 YEARS AGO 02/13/2006 [facility]
--- OUTSIDE RECORDS SUMMARY | 2024-08-07 12:56 | XMS_ITS | Clinical Summary ---
Author Organization [facility] Address [address] [place] [address] Care Team Providers Care Barrelhead Inspector Name Role Phone Malick Mcgregor MD Unavailable Mikey Brumfield NP Primary Care Provider [phone] Ellie Colon MD Unavailable [phone] Betty Sepulveda MD Unavailable [phone] Allergies Active Allergy Reactions Criticality Noted Date Comments Niacin Hallucinations,Flush ing (skin) Medium 12/05/2007 Penicillins Hives,Rash Medium 06/28/2017 Reaction: HIVES, Reaction: Hives, , Pravastatin Muscle pain Medium 10/17/2008 Simvastatin Muscle pain Medium 08/31/2006 Medications glipiZIDE (GLUCOTROL) 5 mg tabletIndication s:type 2 diabetes mellitus Take 1 tablet (5 mg total) by mouth 2 (two) times a day before breakfast and dinner Active isosorbide mononitrate ER (IMDUR) 30 mg 24 hr tablet Take 1 tablet (30 mg total) by mouth 2 (two) times a day [address] (PROTONIX) 40 mg EC tablet Take 1 tablet (40 mg total) by mouth daily 8 Active allopurinol (ZYLOPRIM) 300 mg tablet Take [...] Resume metformin after 2 days on 09/03/18 9 Active aspirin 81 mg enteric coated tablet Take 1 tablet (81 mg total) by mouth daily Active rosuvastatin (CRESTOR) 20 mg tablet Take 1 tablet (20 mg total) by mouth daily 100 tablet 2 5 04/19/19 26 Active metoprolol tartrate (LOPRESSOR) 25 mg immediate release tablet Take 1 tablet (25 mg total) by mouth 2 (two) times a day 200 tablet 2 5 Active Eliquis 5 mg tablet Take 1 tablet (5 mg total) by mouth 2 (two) times a day 200 tablet 2 5 04/19/19 26 Active dilTIAZem (CARDIZEM) 30 mg tablet Take 1 tablet (30 mg total) by mouth 3 (three) times a day 300 tablet 2 5 Active nitroglycerin (NITROSTAT) 0.[address] 1 tablet (0.4 mg total) under the tongue every 5 (five) minutes as needed for chest pain 90 tablet 3 5 04/19/19 26 Active amiodarone (PACERONE) 200 mg tablet Take 1 tablet (200 mg total) by mouth daily Pt only takes medication on //, please send one year supply 100 tablet 3 5 05/01/19 26 Active clindamycin (CLEOCIN) 300 mg capsule TAKE 2 CAPSULES BY MOUTH 2 HOURS BEFORE APPT AND 2 CAPSULES BY MOUTH DAY AFTER APPT 5 Active lisinopriL (PRINIVIL,ZESTRI L) 20 mg tablet Take 1 tablet (20 mg total) by mouth daily 90 tablet 3 5 06/05/19 26 Active clopidogreL (PLAVIX) 75 mg tablet Take 1 tablet (75 mg total) by mouth daily 90 tablet 3 5 07/05/19 26 Active acetaminophen 500 mg capsule Take by mouth every 6 (six) hours as needed for mild pain (pain scale 1-4) Active Active Problems Problem Noted Date Diagnosed Date Encounter for examination fo r normal comparison and control in clinical research program 07/25/2024 Anxiety state 05/07/2024 Disorder of nervous system [...] artery disease of n ative artery of king salmon heart with stable angina pectoris ([facility]) 08/28/2018 Overview (08/28/2018): Added automatically from request for surgery [id number] Assessment & Plan (12/08/2022 11:48 AM CDT): [...] (09/19/2017): Added automatically from request for surgery [id number] Encounter for postoperative care 11/03/2014 Overview (06/17/2016): Post surgical visit Bladder pain 05/27/2014 Resolved Problems Problem Noted Date Diagnosed Date Resolved Date Chest pain 01/06/2020 12/07/2022 Overview (01/06/2020): Added automatically from request for surgery [id number] Chest pain due to myocardial ischemia 08/31/2018 12/07/2022 Unstable angina pectoris (CMS/HCC) 08/28/2018 09/29/2021 Overview (08/28/2018): Added automatically from request for surgery [id number] Acute chest pain 04/10/2018 09/29/2021 Acute coronary syndrome (CMS/HCC) 04/10/2018 09/29/2021 Overview (04/10/2018): Added automatically from request for surgery [id number] Coronary artery disease invo lving king salmon coronary artery of king salmon heart without angina pectoris 10/09/2017 09/29/2021 Overview (10/09/2017): Added automatically from request for surgery [id number] Angina pectoris, unstable ([facility]) 09/19/2017 09/29/2021 Overview (09/19/2017): Added automatically from request for surgery [id number] Coronary artery disease invo lving coronary bypass graft of king salmon heart with unstable angina pectoris ([facility]) 09/19/2017 09/29/2021 Overview (09/19/2017): Added automatically from request for surgery [id number] Encounters Date Type Department Care Team Description 07/31/2024 Documentation Cardiovascular and Thoracic Surgery [address] [place] [address] [address] [place] [address] Angelica Rausch 07/29/2024 Telephone Cardiovascular and Thoracic Surgery [address] [place] [address] [address] [place] [address] Ellie Colon MD OTHER 07/25/2024 Telephone Cardiovascular and Thoracic Surgery [address] [place] [address] [address] [place] [address] Ellie Colon MD OTHER 07/24/2024 1:00 PM CDT Office Visit [facility] Cardiology [address] [place] [address] [address] [place] [address] Betty Sepulveda MD Aortic valve stenosis, etiology of cardiac valve disease unspecified (Primary Dx) 07/24/2024 12:30 PM CDT Lab [facility] Outpatient Lab [facility] [place] [address] Nonrheumatic aortic valve stenosis; Aortic valve stenosis, etiology of cardiac valve disease unspecified; Chronic kidney disease, unspecified CKD stage 07/24/2024 12:00 PM CDT Office Visit Cardiovascular and Thoracic Surgery [address] [place] [address] [address] [place] [address] Ellie Colon MD Nonrheumatic aortic valve stenosis 07/24/2024 11:15 AM CDT - 07/24/2024 11:59 PM CDT Hospital Encounter [facility] - Imaging [address] [place] [address] Aortic valve stenosis, etiology of cardiac valve disease unspecified Discharge Disposition: Discharge to home or self care 07/23/2024 Telephone Cardiovascular and Thoracic Surgery [address] [place] [address] [address] [place] [address] Ester Hdz RN 07/23/2024 Orders Only Cardiovascular and Thoracic Surgery [address] [place] [address] [address] [place] [address] ProviderIon MD 07/12/2024 Documentation Cardiovascular and Thoracic Surgery [address] [place] [address] [address] [address] Leigh Ferrari 07/12/2024 Telephone [facility] Cardiology [address] [place] [address] [address] [place] [address] Inocencia Dickinson Scheduling Appointments 07/12/2024 Orders Only Cardiovascular and Thoracic Surgery [address] [place] [address] [address] [place] [address] Ester Hdz, RN Aortic valve stenosis, etiology of cardiac valve disease unspecified (Primary Dx); Chronic kidney disease, unspecified CKD stage 07/04/2024 10:20 AM CDT - 07/04/2024 11:55 AM CDT Surgery [facility] [address] [place] [address] Ellie Wesley MD RIGHT LEFT HEART CATHETERIZATION WITH CORONARY ANGIOGRAPHY GRAFT AND WITH OR WITHOUT LEFT VENTRICULOGRAPHY [id number] 07/04/2024 8:49 AM CDT - 07/04/2024 2:13 PM CDT Hospital Encounter [facility] [address] [place] [phone] Ellie Wesley MD Nonrheumatic aortic valve stenosis Discharge Disposition: Discharge to home or self care 06/11/2024 Telephone [facility] Cardiology [address] [facility] [address] [place] [address] Ellie Wesley MD Cath Rescheduling 06/04/2024 Telephone [facility]iology [address] [facility] [address] [place] [address] Ellie Wesley MD RL Scheduling 06/04/2024 Results Follow-Up [facility] Cardiology [facility] [facility] [address] [place] [address] Ellie Wesley MD Transthoracic Echo (TTE) Complete W Doppler/CF 05/27/2024 1:30 PM CDT Ancillary Procedure [facility]iology [address] [facility] [address] [place] [address] 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 Tee CARPAL TUNNEL RELEASE Bilateral carpal tunnel release [...] GRAFT AND WITH OR WITHOUT LEFT VENTRICULOGRAPHY [id number]; Surgeon: Ellie Wesley MD; Location: [facility] CARDIAC RN FACULTY; Service: Cardiovascular; Laterality: N/A; Medical devices from this surgery are in the Medical Devices section. 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 Gender Identity Male 07/13/2024 9:11 AM CDT Sexual Orientation Don't know 07/13/2024 9: 12 AM CDT Sexual Orientation Choose not to disclose 2024 9:12 AM CDT Obstetrics History Last Filed Vital Signs Vital Sign Reading Time Taken Comments Blood Pressure 134/62 07/24/2024 12:49 PM CDT Pulse 55 07/24/2024 12:49 PM CDT Temperature 36.8 C (98.2 F) 07/04/2024 9:06 AM CDT Respiratory Rate 16 07/24/2024 10:29 AM CDT Oxygen Saturation 98% 07/24/2024 10:29 AM CDT Inhaled Oxygen Concentration - - Weight 98.4 kg (217 lb) 07/24/2024 12:49 PM CDT Height 188 cm (6' 2) 07/24/2024 12:49 PM CDT Body Mass Index 27.86 07/24/2024 12:49 PM CDT Plan of Treatment Upcoming Encounters Date Type Department Care Team (Latest Contact Info) Description 08/12/2024 9:30 AM CDT Hospital Encounter [facility] Operating Room [address] [place] [phone] Ellie Colon MD [address] [facility] [address] [place], [place] [id number] Nonrheumatic aortic valve stenosis; Encounter for examination for normal comparison and control in clinical research program 08/12/2024 9:30 AM CDT - 08/12/2024 11:25 AM CDT Surgery [facility] Operating Room [address] [place] [phone] Ellie Colon MD [address] [facility] [address] [place], [place] [id number] REPLACEMENT AORTIC VALVE - TRANSFEMORAL ENDOVASCULAR APPROACH Health Maintenance Due Date Last Done Comments [...] 05/07/2025 05/07/2024, 12/13, 08/30/2018, Additional history exists Fall Risk Assessment 07/04/2025 07/04/2024 eGFR 07/24/2025 07/24/2024, 05/13, 01/10/2020, Additional history exists DTaP/Tdap/Td Vaccine (2 - Td or Tdap) 08/30/2031 08/29/2021, 02/13/2006 Medical Devices Implanted Type Area Public Health Service Officer Device Identifier Shelf Expiration Date Model / Serial / Lot [employer] Elvin [id number] Synergy 3.5mm 38mm 144cm Radiopaque 1 Access Port Inflation Lumen - [id number] Implanted:Qty: 1 on 08/31/2018 by Maurice Olivares MD at [facility] Stent N/A: Coronary [employer] Elvin 06/24/2020 [id number] / / [id number] [employer]vin [id number] Synergy 3mm 38mm 144cm Radiopaque 1 Access Port Inflation Lumen - [id number] Implanted:Qty: 1 on 08/31/2018 by Maurice Olivares MD at [facility] Stent N/A: Coronary [employer] Elvin 06/04/2020 [id number] / / [id number] Description:TACHO to RCA [employer] Elvin [id number] Synergy 4mm 38mm 144cm Radiopaque 1 Access Port Inflation Lumen - [id number] Implanted:Qty: 1 on 08/31/2018 by Maurice Olivares MD at [facility] Stent N/A: Coronary [employer] Elvin 06/18/2020 [id number] / / [id number] Description:TACHO to RCA [employer] Elvin Synergy Xd Monorail 3mm 20mm 144cm Delivery System 1 Access Port [id number] - S0 - [id number] Implanted:Qty: 1 on 07/04/2024 by Ellie Wesley MD at [facility] Stent [employer] Elvin 12/10/2025 [id number] / 0 / [id number] [employer] System Closure Repair Femoral Artery Suture Mediated Perclose Prostyle 08732-23 - S0 - [id number] Implanted:Qty: 1 on 07/04/2024 by Ellie Wesley MD at [facility] Vascular Closure Device [employer] 06/10/2026 [id number] / 0 / [id number] [employer] Elvin Angio-Seal Vip 6fr Closere Device [id number] - S0 - [id number] Implanted:Qty: 1 on 07/04/2024 by Ellie Wesley MD at [facility] Vascular Closure Device [employer] Elvin 01/28/2025 [id number] / 0 / [id number] [employer] Device Vascular Closure Femoral Artery Bioabsorbable Dual Method Vascade 6-7fr Collagen [id number] - S0 - [id number] Implanted:Qty: 1 on 07/04/2024 by Ellie Wesley MD at [facility] Vascular Closure Device [employer] Inc 05/20/2026 [id number] / 0 / [id number] [employer] X [id number] Resolute Basil 3.5mm 2.1-2.7fr 18mm 140cm Rapid Exchange - [id number] Implanted:Qty: 1 on 10/06/2017 by Malick Mcgregor MD at [facility] [employer] X 05/13/2019 [id number] / / [id number] [employer] X [id number] Resolute Hartland 2.25mm 2.1-2.7fr 12mm 140cm Rapid Exchange - [id number] Implanted:Qty: 1 on 10/30/2017 by Malick Mcgregor MD at [facility] [employer] X 12/10/2018 [id number] / / [id number] [employer] Elvin [id number] Synergy 4mm 20mm 144cm Radiopaque 1 Access Port Inflation Lumen - [id number] Implanted:Qty: 1 on 04/11/2018 by Malick Mcgregor MD at [facility] N/A: Coronary [employer] Elvin [id number] 10/25/2019 [id number] / / [id number] Description:SVG toRCA Procedures Procedure Name Priority Date/Time Associated Diagnosis Comments EGFR STAT 07/24/2024 12:41 PM CDT Aortic valve stenosis, etiology of cardiac valve disease unspecified Chronic kidney disease, unspecified CKD stage DIFFERENTIAL AUTO Routine 07/24/2024 12:41 PM CDT Nonrheumatic aortic valve stenosis BASIC METABOLIC PANEL STAT 07/24/2024 12:41 PM CDT Aortic valve stenosis, etiology of cardiac valve disease unspecified Chronic kidney disease, unspecified CKD stage CBC WITH AUTO DIFFERENTIAL Routine 07/24/2024 12:41 PM CDT Nonrheumatic aortic valve stenosis TYPE AND SCREEN Routine 07/24/2024 12:41 PM CDT Nonrheumatic aortic valve stenosis CT TAVR Schedule Routine, Read Routine (OP Routine) 07/24/2024 12:34 PM CDT Aortic valve stenosis, etiology of cardiac valve disease unspecified POCT CREATININE FOR CONTRAST EVALUATION Routine 07/24/2024 11:38 AM CDT BASIC METABOLIC PANEL Routine 07/19/2024 9:04 AM CDT ECG 12-LEAD Routine 07/04/2024 12:45 PM CDT [...] 2:14 PM CDT 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 73 m2 Comment: Interpretive Data Reference Interval Normal >/= 90 mL/min/1.73m2 Mildly decreased* 60 - 89 mL/min/1.73m2 Mildly to moderately decreased 45 - 59 mL/min/1.73m2 Moderately to severely decreased 30 - 44 mL/min/1.73m2 Severely decreased 15 - 29 mL/min/1.73m2 Kidney Failure < 15 mL/min/1.73m2 *Relative to young adult level Estimated glomerular filtration rate is determined by the 2020 CKD-EPI equation recommended by the National Kidney Foundation (A Unifying Approach to GFR Estimation: Recommendations of the NKF-ASK Task Force on Reassessing the Inclusion of Race in Diagnosing Kidney Disease, JASN 202). The CKD-EPI equation should not be used for patients with unstable renal function and has not been validated in children and those over 70. Current interpretive data was last reviewed 2021. Blood 07/24/2024 12:4 1 PM CDT 07/24/2024 12:55 PM CDT us Nati Solis NP LAB BLOOD ORDERABLES Final Result [facility] [address] Department [place] [address] * Differential, auto (07/24/2024 12:41 PM CDT) Neutrophil abs 2.66 1.50 - 6.50 K/cumm Imm gran abs 0.03 0.00 - 0.10 K/cumm [facility] Lymphocyte abs 1.38 0.80 - 3.30 K/cumm [facility] Monocyte abs 0.48 0.20 - 0.80 K/cumm [facility] Eosinophil abs 0.29 0.00 - 0.50 K/cumm [facility] Basophil abs 0.05 0.00 - 0.10 K/cumm [facility] Neutrophil pct 54.5 % [facility] Comment: Interpretive Data Percent cell count reference ranges are not reported, since discordance with absolute values may lead to misinterpretation of CBC data. Current Interpretive Data was last revised on 2017. Imm gran pct 0.6 % [facility] Comment: Interpretive Data Percent cell count reference ranges are not reported, since discordance with absolute values may lead to misinterpretation of CBC data. Current Interpretive Data was last revised on 2017. Lymphocyte pct 28.2 % [facility] Comment: Interpretive Data Percent cell count reference ranges are not reported, since discordance with absolute values may lead to misinterpretation of CBC data. Current Interpretive Data was last revised on 2017. Monocyte pct 9.8 % [facility] Comment: Interpretive Data Percent cell count reference ranges are not reported, since discordance with absolute values may lead to misinterpretation of CBC data. Current Interpretive Data was last revised on 2017. Eosinophil pct 5.9 % [facility] Comment: Interpretive Data Percent cell count reference ranges are not reported, since discordance with absolute values may lead to misinterpretation of CBC data. Current Interpretive Data was last revised on 2017. Basophil pct 1.0 % [facility] Comment: Interpretive Data Percent cell count reference ranges are not reported, since discordance with absolute values may lead to misinterpretation of CBC data. Current Interpretive Data was last revised on 2017. Blood 07/24/2024 12:4 1 PM CDT 07/24/2024 12:56 PM CDT Nati Solis SCALE CLERK LAB BLOOD ORDERABLES Final Result Performing Organization Address City/[facility]/ZIP Co de Phone Number [facility] [address] [place] [address] * (ABNORMAL) CBC with auto differential (07/24/2024 12:41 PM CDT) WBC 4.89 3.80 - 9.90 K/cumm Hgb 12.3(L) 13.0 - 17.5 g/dL [facility] Hct 38.2(L) 38.9 - 50.3 % [facility] Plt 206 150 - 400 K/cumm [facility] MPV 9.6 9.1 - 12.3 fL [facility] RBC 4.08(L) 4.30 - 5.80 M/cumm [facility] MCV 93.6 81.3 - 96.4 fL [facility] MCH 30.1 27.1 - 33.3 pg [facility] MCHC 32.2(L) 32.3 - 35.7 g/dL [facility] RDW CV 14.8 11.1 - 14.9 % [facility] RDW SD 51.1(H) 35.7 - 48.1 fL [facility] NRBC abs 0.00 0.00 - 0.01 K/cumm [facility] Blood 07/24/2024 12:4 1 PM CDT 07/24/2024 12:56 PM CDT Nati Solis SCALE CLERK LAB BLOOD ORDERABLES Final Result Performing Organization Address City/[facility]/ZIP Co de Phone Number [facility] [address] [facility] [place] [address] * Type and screen (07/24/2024 12:41 PM CDT) Pathologist [facility] Stephanie, indirect Negative ABO Rh A Positive [facility] Blood 07/24/2024 12:4 1 PM CDT 07/24/2024 1:02 PM CDT Narrative [facility] - 07/24/2024 6:36 PM CDT No blood transfusions x 90 days. Set up 2 Units PRBC for day of surgery TBD Has the patient had Daratumumab or Isatuximab in the past 6 months?->Unknown Nati Solis SCALE CLERK LAB BLOOD BANK TEST ORDERA BLES Final Result [facility] [address] Department [place] [address] * (ABNORMAL) Basic metabolic panel (07/24/2024 12:41 PM CDT) Pathologist [facility] Sodium 137 135 - 145 mmol/L Potassium, pl 4.3 3.3 - 4.9 mmol/L [facility] Chloride 103 97 - 110 mmol/L [facility] CO2 23 22 - 32 mmol/L [facility] Anion gap 11 2 - 15 mmol/L [facility] BUN 18 6 - 25 mg/dL [facility] Creatinine 1.16 0.80 - 1.30 mg/dL [facility] Glucose 56(L) 70 - 199 mg/dL [facility] Comment: Interpretive Data Fasting glucose >/= 126 mg/dl is diagnostic for diabetes. Fasting is defined as no caloric intake for at least 8 hours. Fasting glucose between 100 mg/dl to 125 mg/dl is diagnostic of prediabetes. In a patient with classic symptoms of hyperglycemia or hyperglycemic crisis, a random glucose >/= 200 mg/dl is diagnostic for diabetes. In the absence of unequivocal hyperglycemia, results should be confirmed by repeat testing. The classification and Diagnosis of Diabetes Diabetes Care 2021; 46: S19-S40. Current interpretive data was last revised 2022. Calcium 9.2 8.5 - 10.3 mg/dL [facility] Blood 07/24/2024 12:4 1 PM CDT 07/24/2024 12:55 PM CDT Narrative [facility] - 07/24/2024 1:24 PM CDT To be done prior to CT to assess renal fxn prior to giving iv contrast. us Nati Solis NP LAB BLOOD ORDERABLES Final Result [facility] [address] Department [place] [address] * CT TAVR (07/24/2024 12:34 PM CDT) Anatomical Region Laterality Modality Chest N/A Computed Tomogra phy 07/24/2024 2:20 PM CDT Impressions 07/24/2024 3:48 PM CDT 1. Aortic annulus, and abdominal aortic, common iliac, external iliac, and femoral artery measurements in preparation for TAVR procedure as described above. 2. Aortic valve calcium score: Agatston 1488, volume 1192 mm3. Dictated by: Grupo Hollins M.D. The radiology attending physician has personally reviewed this study, and had reviewed and/or edited this written report and agrees with it. Electronically signed by: Steve Tsai M.D. Narrative 07/24/2024 3:48 PM CDT EXAMINATION: CT TAVR HISTORY: Severe aortic stenosis, pre-TAVR procedure. TECHNIQUE: Heart CT and CT angiogram of the abdomen and pelvis performed during intravenous administration of 120 mL of Optiray 350 per the TAVR Protocol. Images were transferred to an independent workstation for additional 3D post-processing. 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 Annulus and thoracic aortic measurements (in systole): Aortic valve annulus: Area for 75 mm2; circumference 79 mm; 27 mm maximum diameter x 22 mm minimum diameter Sinuses of Valsalva: 33 mm x 33 mm x 31 mm [id number] Sinotubular junction: 26 mm x 29 mm Distance to RCA ostium from aortic valve annulus: 18 mm Distance to left main ostium from annulus: 16 mm Deployment angle: 2 LAMBERT, 9 Caudal Right coronary sinus height: 22 mm Left coronary sinus height: 23 mm Non-coronary sinus height: 26 mm Aortic valve calcium score: Agatston 1488, volume 1192 mm3 There is mild left ventricular outflow tract calcification. There is moderate mitral annular calcification. 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 The left internal mammary artery graft is patent. Abdominal aortic and pelvic arterial smallest diameter measurements (made from centerline curved MPRs): Infrarenal aorta: 17 mm x 17 mm. There is moderate calcification. Right common iliac artery: 11 mm x 12 mm. There is moderate calcification. Left common iliac artery: 10 mm x 11 mm. There is moderate calcification. There is mild tortuosity of the bilateral common iliac arteries. This is equal in distribution. Right external iliac artery: 8 mm x 10 mm. There is mild calcification. Left external iliac artery: 8 mm x 9 mm. There is mild calcification. There is severe tortuosity of the bilateral external iliac arteries. This is more severe on the left. Right common femoral artery: 10 mm. There is mild calcification. Left common femoral artery: 9 mm. There is mild calcification. There is mild tortuosity of the bilateral femoral arteries. This is equal in distribution. Other findings: The lungs are clear apart from a calcified granuloma in the left upper lobe. There is no pleural or pericardial effusion. The heart size is normal. There are morphologic findings of hepatic fibrosis. The gallbladder is surgically absent. Calcified granulomas are noted in the spleen. Nonobstructing right renal calculi are present. The pancreas, spleen, adrenals and kidneys are otherwise unremarkable. There is no bowel wall thickening or bowel obstruction. The urinary bladder is unremarkable. The prostate is present. There is no suspicious osseous lesion. Procedure Note Steve Tsai MD - 07/24/2024 EXAMINATION: CT TAVR HISTORY: Severe aortic stenosis, pre-TAVR procedure. TECHNIQUE: Heart CT and CT angiogram of the abdomen and pelvis performed during intravenous administration of 120 mL of Optiray 350 per the TAVR Protocol. Images were transferred to an independent workstation for additional 3D post-processing. 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 Annulus and thoracic aortic measurements (in systole): Aortic valve annulus: Area for 75 mm2; circumference 79 mm; 27 mm maximum diameter x 22 mm minimum diameter Sinuses of Valsalva: 33 mm x 33 mm x 31 mm [id number] Sinotubular junction: 26 mm x 29 mm Distance to RCA ostium from aortic valve annulus: 18 mm Distance to left main ostium from annulus: 16 mm Deployment angle: 2 LAMBERT, 9 Caudal Right coronary sinus height: 22 mm Left coronary sinus height: 23 mm Non-coronary sinus height: 26 mm Aortic valve calcium score: Agatston 1488, volume 1192 mm3 There is mild left ventricular outflow tract calcification. There is moderate mitral annular calcification. 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 The left internal mammary artery graft is patent. Abdominal aortic and pelvic arterial smallest diameter measurements (made from centerline curved MPRs): Infrarenal aorta: 17 mm x 17 mm. There is moderate calcification. Right common iliac artery: 11 mm x 12 mm. There is moderate calcification. Left common iliac artery: 10 mm x 11 mm. There is moderate calcification. There is mild tortuosity of the bilateral common iliac arteries. This is equal in distribution. Right external iliac artery: 8 mm x 10 mm. There is mild calcification. Left external iliac artery: 8 mm x 9 mm. There is mild calcification. There is severe tortuosity of the bilateral external iliac arteries. This is more severe on the left. Right common femoral artery: 10 mm. There is mild calcification. Left common femoral artery: 9 mm. There is mild calcification. There is mild tortuosity of the bilateral femoral arteries. This is equal in distribution. Other findings: The lungs are clear apart from a calcified granuloma in the left upper lobe. There is no pleural or pericardial effusion. The heart size is normal. There are morphologic findings of hepatic fibrosis. The gallbladder is surgically absent. Calcified granulomas are noted in the spleen. Nonobstructing right renal calculi are present. The pancreas, spleen, adrenals and kidneys are otherwise unremarkable. There is no bowel wall thickening or bowel obstruction. The urinary bladder is unremarkable. The prostate is present. There is no suspicious osseous lesion. IMPRESSION: 1. Aortic annulus, and abdominal aortic, common iliac, external iliac, and femoral artery measurements in preparation for TAVR procedure as described above. 2. Aortic valve calcium score: Agatston 1488, volume 1192 mm3. Dictated by: Grupo Hollins M.D. The radiology attending physician has personally reviewed this study, and had reviewed and/or edited this written report and agrees with it. Electronically signed by: Steve Tsai M.D. Nati Solis SCALE CLERK IMG CT PROCEDURES Final Re sult * POCT creatinine for contrast evaluation (07/24/2024 11:38 AM CDT) Creatinine, POC 1.3 0.6 - 1.5 mg/dL Comment:egfr 57 Blood 07/24/2024 11:3 8 AM CDT Matthew Ramon MD POINT OF CARE TEST ORDER KELLY Final Result * Basic metabolic panel (07/19/2024 9:04 AM CDT) Blood Historical Provider LAB BLOOD ORDERABLES Brittney l Result Performing Organization Address City/[facility] Co de Phone Number [facility] * ECG 12 lead (07/04/2024 12:45 PM CDT) 07/04/2024 12:4 5 PM CDT Narrative [facility] - 07/05/2024 1:45 PM CDT Vent Rate: 59 bpm RR Interval: 1008 msec ME Interval: 187 msec QRS Duration: 106 msec QT Interval: 446 msec QTC Interval: 444 msec P-R-T [place]: 57 - -11 - -7 degrees IMPRESSION: SINUS BRADYCARDIA WITH FIRST-DEGREE AV BLOCK WITH OCCASIONAL SUPRAVENTRICULAR PREMATURE COMPLEXES BORDERLINE PROLONGED QT INTERVAL MODERATE ST-DEPRESSION ABNORMAL ECG Electronically Signed By: Aubrey Webb MD [email or web address] Ellie Wesley MD ECG ORDERABLES Final Re sult Performing Organization Address [facility]/ZIP Co de Phone Number [facility] [employer] [facility] * RIGHT LEFT HEART CATHETERIZATION CORONARY GRAFT WITH WITHOUT LEFT VENTRICULOGRAPHY ANGIOGRAM (07/04/2024 11:53 AM CDT) Anatomical Region Laterality Modality X-Ray Angiograph y Addenda Addendum by Ellie Wesley MD on 07/04/2024 12:50 PM CDT Images from the original result were not included. [facility] Cardiology [address] [place] [address], [id number], [address] Left Heart Catheterization Procedure Report Attending Physician: Ellie Wesley MD, [facility] Pre-Diagnosis: Aortic stenosis / CAD [...] vessel. Access:6F right femoral artery and 7 [place]ian Right Femoral Vein Catheter:Jatin, JR 4, JL 4, L[place], and AL 1 Injection:Left Main Trunk, Right [...] and draped in sterile fashion. A 6 [place]ian sheath was inserted in the Right Femoral Artery using the modified Seldinger techniquewith ultrasound guidance. A 7 [place]ian sheath was inserted into the right femoral vein using the modified Seldinger technique with ultrasound guidance. Seven [place]ian [place]-Cornelio catheter was used to perform right heart [...] to takeoff of 1st diagonal and septal valve fitter branches. 100% mid vessel occlusion. LCX: Large [...] TAVR Ellie Wesley MD 07/04/2024 12:23 PM [facility] PCI RISK CALCULATOR PCI INDICATIONS New Onset [...] Low Risk (<1% annual risk of or CT) [] Intermediate Risk (1-3% annual risk of or CT [] High Risk (>3% annual risk of or CT) [employer]ES[employer]ERIST[employer] (HIGH RISK Type C LESIONS) [...] 321(H) 123 - 168 sec POC Performer [id number] [facility] Blood 07/04/2024 11:3 1 AM CDT 07/04/2024 11:31 AM CDT Ellie Wesley MD LAB POCT ORDERABLES - DE VICE Final Result [facility] [address] [place] [address] * ECG 12 lead (07/04/2024 9:16 AM CDT) 07/04/2024 9:16 AM CDT Narrative [facility] - 07/04/2024 10:27 PM CDT Vent Rate: 55 bpm RR Interval: 1080 msec ME Interval: 235 msec QRS Duration: 113 msec QT Interval: 475 msec QTC Interval: 464 msec P-R-T [place]: 54 - -19 - -11 degrees IMPRESSION: SINUS BRADYCARDIA WITH FIRST DEGREE AV BLOCK INCOMPLETE RIGHT BUNDLE BRANCH BLOCK PROLONGED QT INTERVAL ABNORMAL ECG Electronically Signed By: Jace Elam MD [facility] Ellie Wesley MD ECG ORDERABLES Final Re sult Performing Organization Address City/[facility]/ZIP Co de Phone Number [facility] [employer] [facility] * POCT glucose (07/04/2024 9:00 AM CDT) Glucose, POC 103 70 - 199 mg/dL Comment: For Glucose values <35 mg/dl when Hematocrit is >60 mg/dl,the test may not accurately detect significant hypoglycemia,and testing in the Laboratory should be considered if clinically indicated. POC Performer [id number] [facility] Blood 07/04/2024 9:00 AM CDT 07/04/2024 9:00 AM CDT us Ellie Wesley MD LAB POCT ORDERABLES - DE VICE Final Result Performing Organization Address City/[facility]/ZIP Co de Phone Number [facility] [address] Department [place] [address] * (ABNORMAL) CBC with auto differential (06/10/2024 [...] 06/11/2024 7:09 AM CDT Performed at: - [address] [id number] Director Of Compensation: Harjeet Leung PhD, Phone: [phone] us Ellie Wesley MD LAB BLOOD ORDERABLES Fin al Result [facility] - 01 * (ABNORMAL) Basic metabolic panel (06/10/2024 12:00 PM CDT) [facility] Glucose 140(H) 70 - 99 mg/dL [facility] [...] 06/11/2024 7:09 AM CDT Performed at: - [address] [id number] Director Of Compensation: Harjeet Leung PhD, Phone: [phone] us Ellie Wesley MD LAB BLOOD ORDERABLES Fin al Result [facility] * TRANSTHORACIC ECHO (TTE) COMPLETE W DOPPLER/CF WO CONTRAST (05/27/2024 2:14 PM CDT) LV EF 70-75 % CONS SCIMAGE Anatomical Region Laterality Modality Ultrasound 05/27/2024 1:47 PM CDT Narrative 05/28/2024 7:50 PM CDT ECHOCARDIOGRAM Patient Name: VENKATESH KAHN : 1945 Study Date: 05/27/2024 1:47:20 PM Gender: M Tech: [facility] Location: [facility] Ref Provider: ELLIE WESLEY Height(Cm): 188 BSA: 2.33 Weight(Kg): 104.33 BP: 131 / 65 Order Provider: ELLIE WESLEY - PROCEDURES: Echocardiographic Report: Transthoracic Echocardiogram with complete 2D, M-Mode, Spectral and Color Flow Doppler examination. 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 Electronically Signed By: Kem Chapa MD [facility] 05/28/2024 7:49:59 PM CDT Procedure Note Kem Chapa MD - 05/28/2024 ECHOCARDIOGRAM Patient Name: VENKATESH KAHN : 1945 Study Date: 05/27/2024 1:47:20 PM Gender: M Tech: [facility] Location: [facility] Ref Provider: ELLIE WESLEY Height(Cm): 188 BSA: 2.33 Weight(Kg): 104.33 BP: 131 / 65 Order Provider: ELLIE WESLEY - PROCEDURES: Echocardiographic Report: Transthoracic Echocardiogram with complete 2D, M-Mode, Spectral and ColorFlow Doppler examination. 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 [...] aorticregurgitation. Electronically Signed By: Kem Chapa MD [facility] 05/28/2024 7:49:59 PM CDT Ellie Wesley MD CV ECHO PROCEDURES Final Result * (ABNORMAL) POCT lipid panel (05/07/2024 11:58 AM HUB C[facility]TER) HDL, POC 32 > - 40 mg/dL Triglycerides, POC 206(A) < - 150 mg/dL LDL Cholesterol POC 27 < - 100 mg/dL Cholesterol Total, POC <100 < - 200 mg/dL Capillary blood 05/07/2024 1 1:58 AM HUB CUTTER Ellie Wesley MD POINT OF CARE TEST ORDER KELLY Final Result * (ABNORMAL) Hemoglobin A1c (04/11/2018 5:27 AM HUB CUTTER) Hgb A1C 7.8(H) 4.0 - 5.6 % [facility] Estimated Average Glucose 177 mg/dL [facility] Comment: The ADA recommends reporting an estimated Average Glucose (eAG) with all Hemoglobin A1c results using the equation derived from a study of 507 normal and diabetic adults. Minority populations were underrepresented and children were not included. (Diabetes Care 31:1078-3615, 2008). The eAG is not equivalent to a fasting glucose. Blood specimen (specimen) 04/11/2018 5:27 AM HUB CUTTER 04/11/2018 5:53 AM HUB CUTTER Narrative [facility] - 04/11/2018 6:10 AM HUB CUTTER us Arley Garcia MD LAB BLOOD ORDERABLES Final Res ult [facility] [address] Department [place] [address] from Last 3 Months or Most Recently Relevant to Health Maintenance Insurance [facility] MEDICARE ADVANTAGE [employer]PA [facility] MED[facility] ADV[facility]AGE [employer]PA [facility] MED[facility] ADV[facility]AGE Advance Directives For more information, please contact: [phone] * Full Code (Latest Code Status on [...] 10:42 AM 10/31/2017 12:13 PM Care Teams Barrelhead Inspector Relationship Specialty Start Date End Date Mikey Brumfield NP [address] [place] [address] PCP - General Nurse Practitioner 06/20/24 Malick Mcgregor MD [address] [place] [address] Consulting Physician Cardiology 04/12/18 Ellie Colon MD [address] [place] [address] Consulting Physician Cardiothoracic Surgery 07/12/24 Betty Sepulveda MD [address] [place] [address] Referring Physician Cardiology 07/12/24
--- OUTSIDE RECORDS SUMMARY | 2024-08-07 12:56 | XMS_ITS | Referral Summary ---
Author Organization [facility] Address [address] [place] [address] Care Team Providers Care Label Folder Name Role Phone Malick Mcgregor MD Unavailable Mikey Brumfield NP Primary Care Provider Ellie Colon MD Unavailable Betty Sepulveda MD Unavailable Encounters Date Type Department Care Team Description 07/31/2024 Documentation Cardiovascular and Thoracic Surgery [address] [place] [phone] Angelica Rausch 07/29/2024 Telephone Cardiovascular and Thoracic Surgery [address] [place] [phone] Ellie Colon MD OTHER 07/25/2024 Telephone Cardiovascular and Thoracic Surgery [address] [place] [phone] Ellie Colon MD OTHER 07/24/2024 12:30 PM CDT Lab [facility] Outpatient Lab [address] [place] [phone] Nonrheumatic aortic valve stenosis; Aortic valve stenosis, etiology of cardiac valve disease unspecified; Chronic kidney disease, unspecified CKD stage 07/24/2024 1:00 PM CDT Office Visit [facility] Cardiology [address] [place] [address] [address] [place] [address] Betty Sepulveda MD Aortic valve stenosis, etiology of cardiac valve disease unspecified (Primary Dx) 07/24/2024 12:00 PM CDT Office Visit Cardiovascular and Thoracic Surgery [address] [place] [address] [address] [place] [address] Ellie Colon MD Nonrheumatic aortic valve stenosis 07/24/2024 11:15 AM CDT - 07/24/2024 11:59 PM CDT Hospital Encounter [facility] - Imaging [facility] [place] [address] Aortic valve stenosis, etiology of cardiac valve disease unspecified Discharge Disposition: Discharge to home or self care 07/23/2024 Telephone Cardiovascular and Thoracic Surgery [address] [place] [phone] Ester Hdz RN 07/23/2024 Orders Only Cardiovascular and Thoracic Surgery [address] [place] [phone] Ion Lay MD 07/12/2024 Documentation Cardiovascular and Thoracic Surgery [address] [place] [phone] Leigh Ferrari 07/12/2024 Telephone [facility] Cardiology [address] [place] [address] [address] [place] [address] Inocencia Dickinson Scheduling Appointments 07/12/2024 Orders Only Cardiovascular and Thoracic Surgery [address] [place] [phone] Ester Hdz, RN Aortic valve stenosis, etiology of cardiac valve disease unspecified (Primary Dx); Chronic kidney disease, unspecified CKD stage 07/04/2024 10:20 AM CDT - 07/04/2024 11:55 AM CDT Surgery [facility] [address] [place] [phone] Ellie Wesley MD RIGHT LEFT HEART CATHETERIZATION WITH CORONARY ANGIOGRAPHY GRAFT AND WITH OR WITHOUT LEFT VENTRICULOGRAPHY [id number] 07/04/2024 8:49 AM CDT - 07/04/2024 2:13 PM CDT Hospital Encounter [facility] [address] [place] [phone] Ellie Wesley MD Nonrheumatic aortic valve stenosis Discharge Disposition: Discharge to home or self care 06/11/2024 Telephone [facility] [address] [place] [address] Ellie Wesley MD Cath Rescheduling 06/04/2024 Telephone [facility] [address] [place] [address] [address] [place] [address] Ellie Wesley MD [facility] Scheduling 06/04/2024 Results Follow-Up [facility] [address] [place] [address] [address] [place] [address] Ellie Wesley MD Transthoracic Echo (TTE) Complete W Doppler/CF 05/27/2024 Telephone [facility] Cardiology [facility] [address] [place] [phone] Ellie Wesley MD 05/27/2024 1:30 PM CDT Ancillary Procedure [facility] [address] [place] [phone] Coronary artery disease of [place] artery of [place] heart with stable angina pectoris (CMS/HCC) (HCC) from Last 3 Months Allergies Active [...] artery disease of n ative artery of [place] heart with stable angina pectoris ([facility]) 08/28/2018 Overview (08/28/2018): Added automatically from request for surgery [id number] Assessment & Plan (12/08/2022 11:48 AM CDT): [...] (09/19/2017): Added automatically from request for surgery [id number] Encounter for postoperative care 11/03/2014 Overview (06/17/2016): Post surgical visit Bladder pain 05/27/2014 Resolved Problems Problem Noted Date Diagnosed Date Resolved Date Chest pain 01/06/2020 12/07/2022 Overview (01/06/2020): Added automatically from request for surgery [id number] Chest pain due to myocardial ischemia 08/31/2018 12/07/2022 Unstable angina pectoris ([facility]) 08/28/2018 09/29/2021 Overview (08/28/2018): Added automatically from request for surgery [id number] Acute chest pain 04/10/2018 09/29/2021 Acute coronary syndrome ([facility]) 04/10/2018 09/29/2021 Overview (04/10/2018): Added automatically from request for surgery [id number] Coronary artery disease invo lving [place] coronary artery of [place] heart without angina pectoris 10/09/2017 09/29/2021 Overview (10/09/2017): Added automatically from request for surgery [id number] Angina pectoris, unstable ([facility]) 09/19/2017 09/29/2021 Overview (09/19/2017): Added automatically from request for surgery [id number] 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 ([facility]) 09/19/2017 09/29/2021 Overview (09/19/2017): Added automatically from request for surgery [id number] Immunizations Immunization Administration Dates Next Due Influenza, [...] on file Legal 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 Gender Identity Male 07/13/2024 9:11 AM CDT Sexual Orientation Don't know 07/13/2024 9: 12 AM CDT Sexual Orientation Choose not to disclose 2024 9:12 AM CDT Last Filed Vital Signs Vital Sign Reading [...] Description 08/12/2024 9:30 AM CDT Hospital Encounter [facility] Operating Room [address] [place] [phone] Ellie Colon MD [address] [facility] [address] [place] [address] Nonrheumatic aortic valve stenosis; Encounter for examination for normal comparison and control in clinical research program 08/12/2024 9:30 AM CDT - 08/12/2024 11:25 AM CDT Surgery [facility] Operating Room [address] [place] [phone] Ellie Colon MD [address] [place] [address] REPLACEMENT AORTIC VALVE - TRANSFEMORAL ENDOVASCULAR APPROACH Medical Devices Implanted Type Area Machine Ii Trimmer Device Identifier Shelf Expiration Date Model / Serial / Lot [employer] [id number] Synergy 3.5mm 38mm 144cm Radiopaque 1 Access Port Inflation Lumen - [id number] Implanted:Qty: 1 on 08/31/2018 by Maurice Olivares MD at [facility] Stent N/A: Coronary [employer] 06/24/2020 [id number] / / [id number] [employer] [id number] Synergy 3mm 38mm 144cm Radiopaque 1 Access Port Inflation Lumen - [id number] Implanted:Qty: 1 on 08/31/2018 by Maurice Olivares MD at [facility] Stent N/A: Coronary [employer] 06/04/2020 [id number] / / [id number] Description:TACHO to RCA [employer] [id number] Synergy 4mm 38mm 144cm Radiopaque 1 Access Port Inflation Lumen - [id number] Implanted:Qty: 1 on 08/31/2018 by Maurice Olivares MD at [facility] Stent N/A: Coronary [employer] 06/18/2020 [id number] / / [id number] Description:TACHO to RCA [employer] Synergy Xd Monorail 3mm 20mm 144cm Delivery System 1 Access Port [id number] - S0 - [id number] Implanted:Qty: 1 on 07/04/2024 by Ellie Wesley MD at [facility] Stent [employer] 12/10/2025 [id number] / 0 / [id number] Ha[employer] Vascular System Closure Repair Femoral Artery Suture Mediated Perclose Prostyle 44431-87 - S0 - [id number] Implanted:Qty: 1 on 07/04/2024 by Ellie Wesley MD at [facility] Vascular Closure Device [employer] 06/10/2026 [id number] / 0 / [id number] [employer]CON[employer] Elvin Angio-Seal Vip 6fr Closere Device [id number] - S0 - [id number] Implanted:Qty: 1 on 07/04/2024 by Ellie Wesely MD at [facility] Vascular Closure Device [employer] Elvin 01/28/2025 [id number] / 0 / [id number] [employer] Inc Device Vascular Closure Femoral Artery Bioabsorbable Dual Method Vascade 6-7fr Collagen [id number] - S0 - [id number] Implanted:Qty: 1 on 07/04/2024 by Ellie Wesley MD at [facility] Vascular Closure Device [employer] Inc 05/20/2026 [id number] / 0 / [id number] [employer] X [id number] Resolute [place] 3.5mm 2.1-2.7fr 18mm 140cm Rapid Exchange - [id number] Implanted:Qty: 1 on 10/06/2017 by Malick Mcgregor MD at [facility] [employer] X 05/13/2019 [id number] / / [id number] [employer] X [id number] Resolute Basil 2.25mm 2.1-2.7fr 12mm 140cm Rapid Exchange - [id number] Implanted:Qty: 1 on 10/30/2017 by Malick Mcgregor MD at [facility] [employer] X 12/10/2018 [id number] / / [id number] [employer] [place] [employer] [id number] Synergy 4mm 20mm 144cm Radiopaque 1 Access Port Inflation Lumen - [id number] Implanted:Qty: 1 on 04/11/2018 by Malick Mcgregor MD at [facility] N/A: Coronary [employer] [id number] 10/25/2019 [id number] / / [id number] Description:SVG toRCA Procedures Procedure Name Priority Date/Time [...] 2:14 PM CDT Coronary artery disease of [place] artery of [place] heart with stable angina pectoris (CMS/HCC) (HCC) POCT LIPID PANEL Routine 05/07/2024 11:58 AM INFORMATICS EDUCATOR Hypercholesteremi a HEMOGLOBIN A1C Routine 04/11/2018 5:27 AM INFORMATICS EDUCATOR from Last 3 Months or Most Recently [...] Solis NP LAB BLOOD ORDERABLES Final Result [facility] [address] [place] [address] * Differential, auto (07/24/2024 12:41 PM CDT) Neutrophil abs 2.66 1.50 - 6.50 K/cumm Imm gran abs 0.03 0.00 - 0.10 K/cumm [facility] Lymphocyte abs 1.38 0.80 - 3.30 K/cumm [facility] Monocyte abs 0.48 0.20 - 0.80 K/cumm [facility] Eosinophil abs 0.29 0.00 - 0.50 K/cumm [facility] Basophil abs 0.05 0.00 - 0.10 K/cumm [facility] Neutrophil pct 54.5 % [facility] Comment: Interpretive Data Percent cell count reference ranges are not reported, since discordance with absolute values may lead to misinterpretation of CBC data. Current Interpretive Data was last revised on 2017. Imm gran pct 0.6 % [facility] Comment: Interpretive Data Percent cell count reference ranges are not reported, since discordance with absolute values may lead to misinterpretation of CBC data. Current Interpretive Data was last revised on 2017. Lymphocyte pct 28.2 % [facility] Comment: Interpretive Data Percent cell count reference ranges are not reported, since discordance with absolute values may lead to misinterpretation of CBC data. Current Interpretive Data was last revised on 2017. Monocyte pct 9.8 % [facility] Comment: Interpretive Data Percent cell count reference ranges are not reported, since discordance with absolute values may lead to misinterpretation of CBC data. Current Interpretive Data was last revised on 2017. Eosinophil pct 5.9 % [facility] Comment: Interpretive Data Percent cell count reference ranges are not reported, since discordance with absolute values may lead to misinterpretation of CBC data. Current Interpretive Data was last revised on 2017. Basophil pct 1.0 % [facility] Comment: Interpretive Data Percent cell count reference ranges are not reported, since discordance with absolute values may lead to misinterpretation of CBC data. Current Interpretive Data was last revised on 2017. Blood 07/24/2024 12:4 1 PM CDT 07/24/2024 12:56 PM CDT Nati Solis NP LAB BLOOD ORDERABLES Final Result [facility] [address] Department [place] [address] * (ABNORMAL) CBC with auto differential (07/24/2024 12:41 PM CDT) [facility] WBC 4.89 3.80 - 9.90 K/cumm Hgb 12.3(L) 13.0 - 17.5 g/dL [facility] Hct 38.2(L) 38.9 - 50.3 % [facility] Plt 206 150 - 400 K/cumm [facility] MPV 9.6 9.1 - 12.3 fL [facility] RBC 4.08(L) 4.30 - 5.80 M/cumm [facility] MCV 93.6 81.3 - 96.4 fL [facility] MCH 30.1 27.1 - 33.3 pg [facility] MCHC 32.2(L) 32.3 - 35.7 g/dL [facility] RDW CV 14.8 11.1 - 14.9 % [facility] RDW SD 51.1(H) 35.7 - 48.1 fL [facility] NRBC abs 0.00 0.00 - 0.01 K/cumm [facility] Blood 07/24/2024 12:4 1 PM CDT 07/24/2024 12:56 PM CDT Nati Solis NP LAB BLOOD ORDERABLES Final Result [facility] [address] [place] [address] * Type and screen (07/24/2024 12:41 PM CDT) [facility] Stephanie, indirect Negative ABO Rh A Positive [facility] Blood 07/24/2024 12:4 1 PM CDT 07/24/2024 1:02 PM CDT Narrative [facility] - 07/24/2024 6:36 PM CDT No blood transfusions x 90 days. Set up 2 Units PRBC for day of surgery TBD Has the patient had Daratumumab or Isatuximab in the past 6 months?->Unknown Nati Solis CHIEF OF STAFF DOCTOR LAB BLOOD BANK TEST ORDERA BLES Final Result Performing Organization Address [facility]/ZIP Co de Phone Number [facility] [address] Department [place] [address] * (ABNORMAL) Basic metabolic panel (07/24/2024 12:41 PM CDT) [facility] Sodium 137 135 - 145 mmol/L Potassium, pl 4.3 3.3 - 4.9 mmol/L [facility] Chloride 103 97 - 110 mmol/L [facility] CO2 23 22 - 32 mmol/L [facility] Anion gap 11 2 - 15 mmol/L [facility] BUN 18 6 - 25 mg/dL [facility] Creatinine 1.16 0.80 - 1.30 mg/dL [facility] Glucose 56(L) 70 - 199 mg/dL [facility] Comment: Interpretive Data Fasting glucose >/= 126 [...] 2022. Calcium 9.2 8.5 - 10.3 mg/dL [facility] Blood 07/24/2024 12:4 1 PM CDT 07/24/2024 12:55 PM CDT Narrative [facility] - 07/24/2024 1:24 PM CDT To be done prior to CT to assess renal fxn prior to giving iv contrast. Nati Solis NP LAB BLOOD ORDERABLES Final Result Performing Organization Address City/[facility]/ZIP Co de Phone Number [facility] [address] [place] [address] * CT TAVR (07/24/2024 12:34 PM CDT) [...] mm x 33 mm x 31 mm [id number] Sinotubular junction: 26 mm x 29 mm [...] mm x 33 mm x 31 mm [id number]-[id number] Sinotubular junction: 26 mm x 29 mm [...] signed by: Steve Tsai M.D. Nati Solis NP IMG CT PROCEDURES Final Re sult * POCT creatinine for contrast evaluation (07/24/2024 11:38 AM CDT) Creatinine, POC 1.3 0.6 - 1.5 mg/dL Comment:egfr 57 Blood 07/24/2024 11:3 8 AM CDT Matthew Ramon MD POINT OF CARE TEST ORDER KELLY Final Result * Basic metabolic panel (07/19/2024 9:04 AM CDT) Blood Historical Provider LAB BLOOD ORDERABLES Brittney l Result Performing Organization Address [facility] Co de Phone Number [facility] * ECG 12 lead (07/04/2024 12:45 PM CDT) 07/04/2024 12:4 5 PM CDT Narrative [facility] - 07/05/2024 1:45 PM CDT Vent Rate: 59 bpm RR Interval: 1008 msec WI Interval: 187 msec QRS Duration: 106 msec QT Interval: 446 msec QTC Interval: 444 msec P-R-T [place]: 57 - -11 - -7 degrees IMPRESSION: SINUS BRADYCARDIA WITH FIRST-DEGREE AV BLOCK WITH OCCASIONAL SUPRAVENTRICULAR PREMATURE COMPLEXES BORDERLINE PROLONGED QT INTERVAL MODERATE ST-DEPRESSION ABNORMAL ECG Electronically Signed By: Aubrey Webb MD mob Ellie Wesley MD ECG ORDERABLES Final Re sult Performing Organization Address [facility] Co de Phone Number [facility] * RIGHT LEFT HEART CATHETERIZATION CORONARY GRAFT WITH WITHOUT LEFT VENTRICULOGRAPHY ANGIOGRAM (07/04/2024 11:53 AM CDT) Anatomical Region Laterality Modality X-Ray Angiograph y Addenda Addendum by Ellie Wesley MD on 07/04/2024 12:50 PM CDT Images from the original result were not included. [facility] Cardiology [id number], [address] Left Heart Catheterization Procedure Report Attending Physician: Ellie Wesley MD, [facility] Pre-Diagnosis: Aortic stenosis / CAD Post-Diagnosis: Same [...] vessel. Access:6F right femoral artery and 7 Israeli Right Femoral Vein Catheter:Jatin, JR 4, JL 4, [place], and AL 1 Injection:Left Main Trunk, Right [...] and draped in sterile fashion. A 6 Israeli sheath was inserted in the Right Femoral Artery using the modified Seldinger techniquewith ultrasound guidance. A 7 Israeli sheath was inserted into the right femoral vein using the modified Seldinger technique with ultrasound guidance. Seven Israeli [place]-Cornelio catheter was used to perform right heart [...] to takeoff of 1st diagonal and septal doctor assistant branches. 100% mid vessel occlusion. LCX: Large [...] TAVR Ellie Wesley MD 07/04/2024 12:23 PM [facility] PCI RISK CALCULATOR PCI INDICATIONS New [...] Low Risk (<1% annual risk of or NV) [] Intermediate Risk (1-3% annual risk of or NV [] High Risk (>3% annual risk of or NV) [employer] (HIGH RISK Type C LESIONS) [...] Coronary Segment (LEFT MAIN OR PROX LAD) us Ellie Wesley MD CV CARDIAC CATH PROCEDUR ES Edited Result - Final * (ABNORMAL) POCT Activated clotting time, low range (07/04/2024 11:31 AM CDT) ACT 321(H) 123 - 168 sec POC Performer [id number] [facility] Blood 07/04/2024 11:3 1 AM CDT 07/04/2024 11:31 AM CDT us Ellie Wesley MD LAB POCT ORDERABLES - DE VICE Final Result [facility] [address] [place] [address] * ECG 12 lead (07/04/2024 9:16 AM CDT) 07/04/2024 9:16 AM CDT Narrative [facility] - 07/04/2024 10:27 PM CDT Vent Rate: 55 bpm RR Interval: 1080 msec WI Interval: 235 msec QRS Duration: 113 msec QT Interval: 475 msec QTC Interval: 464 msec P-R-T [place]: 54 - -19 - -11 degrees IMPRESSION: SINUS BRADYCARDIA WITH FIRST DEGREE AV BLOCK INCOMPLETE RIGHT BUNDLE BRANCH BLOCK PROLONGED QT INTERVAL ABNORMAL ECG Electronically Signed By: Jace Elam MD [facility] Ellie Wesley MD ECG ORDERABLES Final Re sult [facility] * POCT glucose (07/04/2024 9:00 AM CDT) Pathologist [facility] Glucose, POC 103 70 - 199 mg/dL Comment: For Glucose values <35 mg/dl when Hematocrit is >60 mg/dl,the test may not accurately detect significant hypoglycemia,and testing in the Laboratory should be considered if clinically indicated. POC Performer [id number] [facility] Blood 07/04/2024 9:00 AM CDT 07/04/2024 9:00 AM CDT us Ellie Wesley MD LAB POCT ORDERABLES - DE VICE Final Result Performing Organization Address City/[facility]/ZIP Co de Phone Number [facility] [address] Department [place] [address] * (ABNORMAL) CBC with auto differential (06/10/2024 [...] - 06/11/2024 7:09 AM CDT Performed at: [address] [id number] Personal Computer Specialist: Harjeet Leung PhD, Phone: [phone] us Ellie Wesley MD LAB BLOOD ORDERABLES Fin al Result [facility] * (ABNORMAL) Basic metabolic panel (06/10/2024 12:00 [...] - 06/11/2024 7:09 AM CDT Performed at: [address] [id number] Personal Computer Specialist: Harjeet Leung PhD, Phone: [phone] us Ellie Wesley MD LAB BLOOD ORDERABLES Fin al Result [facility] - * TRANSTHORACIC ECHO (TTE) COMPLETE W DOPPLER/CF WO CONTRAST (05/27/2024 2:14 PM CDT) LV EF 70-75 % CONS SCIMAGE Anatomical Region Laterality Modality Ultrasound 05/27/2024 1:47 PM CDT Narrative 05/28/2024 7:50 PM CDT ECHOCARDIOGRAM Patient Name: VENKATESH KAHN : 1945 Study Date: 05/27/2024 1:47:20 PM Gender: M Tech: [facility] Location: [facility] Ref Provider: ELLIE WESLEY Height(Cm): 188 BSA: 2.33 Weight(Kg): 104.33 BP: 131 / 65 Order Provider: ELLIE WESLEY - PROCEDURES: Echocardiographic Report: Transthoracic Echocardiogram with complete 2D, M-Mode, Spectral and Color Flow Doppler examination. INDICATIONS: I25.118 Atherosclerotic heart disease of [place] coronary artery with other forms of angina [...] regurgitation. Electronically Signed By: Kem Chapa MD [facility] 05/28/2024 7:49:59 PM CDT Procedure Note Kem Chapa MD - 05/28/2024 ECHOCARDIOGRAM Patient Name: VENKATESH KAHN : 1945 Study Date: 05/27/2024 1:47:20 PM Gender: M Tech: [facility] Location: [facility] Ref Provider: ELLIE WESLEY Height(Cm): 188 BSA: 2.33 Weight(Kg): 104.33 BP: 131 / 65 Order Provider: ELLIE WESLEY - PROCEDURES: Echocardiographic Report: Transthoracic Echocardiogram with complete 2D, M-Mode, Spectral and ColorFlow Doppler examination. INDICATIONS: I25.118 Atherosclerotic heart disease of [place] coronary artery with otherforms of angina pectoris. [...] aorticregurgitation. Electronically Signed By: Kem Chapa MD [facility] 05/28/2024 7:49:59 PM CDT Ellie Wesley MD CV ECHO PROCEDURES Final Result * (ABNORMAL) POCT lipid panel (05/07/2024 11:58 AM INFORMATICS EDUCATOR) HDL, POC 32 > - 40 mg/dL Triglycerides, POC 206(A) < - 150 mg/dL LDL Cholesterol POC 27 < - 100 mg/dL Cholesterol Total, POC <100 < - 200 mg/dL Capillary blood 05/07/2024 1 1:58 AM INFORMATICS EDUCATOR Ellie Wesley MD POINT OF CARE TEST ORDER KELLY Final Result * (ABNORMAL) Hemoglobin A1c (04/11/2018 5:27 AM INFORMATICS EDUCATOR) Hgb A1C 7.8(H) 4.0 - 5.6 % [facility] Estimated Average Glucose 177 mg/dL [facility] Comment: The ADA recommends reporting an estimated Average Glucose (eAG) with all Hemoglobin A1c results using the equation derived from a study of 507 normal and diabetic adults. Minority populations were underrepresented and children were not included. (Diabetes Care 31:5837-4417, 2008). The eAG is not equivalent to a fasting glucose. Blood specimen (specimen) 04/11/2018 5:27 AM INFORMATICS EDUCATOR 04/11/2018 5:53 AM INFORMATICS EDUCATOR Narrative [facility] - 04/11/2018 6:10 AM INFORMATICS EDUCATOR Arley Garcia MD LAB BLOOD ORDERABLES Final Res ult [facility] [address] [place] [address] from Last 3 Months or Most Recently Relevant to Health Maintenance Insurance [facility] MEDICARE ADVANTAGE [employer] [facility] MEDIC[facility] ADV[facility]AGE [employer] [facility] Advance Directives For more information, please contact: [phone] * Full Code (Latest Code Status on [...] 10:42 AM 10/31/2017 12:13 PM Care Teams Label Folder Relationship Specialty Start Date End Date Mikey Brumfield NP [address] [place] [address] PCP - General Nurse Practitioner 06/20/24 Malick Mcgregor MD [address] [place] [address] Consulting Physician Cardiology 04/12/18 Ellie Colon MD [address] [facility] [address] [place] [address] Consulting Physician Cardiothoracic Surgery 07/12/24 Betty Sepulveda MD [address] [place] [address] Referring Physician Cardiology 07/12/24
--- OUTSIDE RECORDS SUMMARY | 2024-08-07 12:56 | XMS_ITS | Clinical Summary ---
Author Organization [facility] Address [address] [place] [address] Care Team Providers Care Curator Of Collections Name Role Phone Isaiah Connor MD Primary Care Provider Whitley potter Source Comments [facility],non-owned Affiliates and Associated Physician Practices is amultiple site organization consisting of ambulatory clinics and hospital sitesin [place], [place], [place] and [place]. This disclosure is being madepursuant to the Care Everywhere program and may not contain all information available regarding this patient. 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
--- OUTSIDE RECORDS SUMMARY | 2024-08-07 12:57 | XMS_ITS | Continuity of Care Document ---
Author Organization [facility] Address [address] [place] [address] [address] [place] [address] Phone Care Team Providers Care Teacher Lip Reading Name Role Phone Donovan Baca Unavailable Unavailable Procedures Procedure Date Eye Exam & Treatment Refraction Eye Exam & Treatment Refraction Anti-reflective Coating Eye Exam & Treatment Refraction BF Plastic Sphcyl [place] To +/-4d .12-2d Tint Photochromatic, Plastic Anti-reflective Coating Tax - Medical Advance Directives Directive Yes / No Effective Date File Name No Information Encounters Encounter Description Practice Location Reason(s) For Visit Diagnoses Date Provider Providers Copied on Encounter [facility], [address] [place] [address] [address], [place], [place], [id number], tel:[phone] [facility] No Information 2-201 0 Keven Man. [address] , [address], [place], [address], [place]. tel:[phone] [facility], [address] [place] [address] [address], [place], [place], [id number], tel:[phone] [facility] No Information 0 5-200 9 Keven Man. [address] , [address], [place], [address], [place]. tel:[phone] [facility], [address], [place], [place], [id number], [place] tel:[phone] [facility] No Information 7 [facility] . [address], [address], [place], [place], [id number], [place]. tel:[phone] Consulting Provider: Veronica William, [address] [place] [address], [address]. tel:[phone] [facility], [address], [place], [place], [id number], [place] tel:[phone] [facility] No Information 7 Doisy Edward. [facility] , [address], [place], [address], [place]. tel:[phone] [facility], [address], [place], [place], [id number], [place] tel:[phone] [facility] No Information 7 [facility] . [address], [address], [place], [place], [id number], [place]. tel:[phone] Referring Provider: Colt Rosa, [address], [place], [address]. tel:[phone] g Provider: Shira Cabello, [address] [place] [address], [address]. tel:[phone] Family History Family Member Type Diagnosis Age [...]
== END 2024-08-07 12:52 | disposition home or self-care (01) ==
LOC: ANHAUDIO 12:52
PROVIDERS: PCP Nurse Practitioner; Visit Provider Otolaryngology
DX: H90.42 Sensorineural hearing loss, unilateral, left ear, with unrestricted hearing on the contralateral side (principal); H90.71 Mixed conductive and sensorineural hearing loss, unilateral, right ear, with unrestricted hearing on the contralateral side
CPT/HCPCS: 92557; 92567